=== PATIENT | female | born 1935 | race Caucasian/White ===

== ENCOUNTER 2019-05-21 09:45 | Outpatient (REF) | payer MEDICARE, SELFPAY ==
[2019-05-21 13:18] LABS: HCT 44.6 % (36.0-46.0); HGB 14.5 g/dL (12.0-15.5); Mean Corp. HGB Concentration 32.5 g/dL (32.0-36.0); Mean Corpuscular Hemoglobin 30.3 pg (27.0-33.0); Mean Corpuscular Volume 93.1 fL (80-95); Mean Platelet Volume 12.5 fL (8.0-11.0); Platelet Count 202 x1000/uL (130-400); RBC 4.79 m/cumm (4.00-5.20); RBC Distribution Width 14.1 % (11.7-14.6); White Blood Cell Count 6.19 k/cumm (4.4-10.8)
[2019-05-21 14:09] LABS: ALT 26 U/L (14-59); AST 12 U/L (15-37); Albumin 3.4 g/dL (3.4-5.0); Alkaline Phosphatase 34 U/L (46-116); Anion Gap 7.3 mmol/L (3-11); BUN 14 mg/dL (7-18); Bilirubin, Total 0.5 mg/dL (0.2-1.0); CO2 28.7 mmol/L (21.0-32.0); CREATININE 0.79 mg/dL (0.55-1.02); Calcium 8.9 mg/dL (8.5-10.1); Calculated LDL 136 mg/dL; Chloride 106 mmol/L (98-107); Cholesterol 224 mg/dL (50-200); Glucose 99 mg/dL (70-100); HDL Cholesterol 58 mg/dL (40-60); Potassium 4.3 mmol/L (3.5-5.1); Sodium 142 mmol/L (136-145); Total Protein 6.6 g/dL (6.4-8.2); Triglyceride 154 mg/dL (30-150)
== END 2019-05-21 10:05 ==
LOC: NCHCN 09:45
PROVIDERS: Visit Provider Family Medicine
DX: E78.5 Hyperlipidemia, unspecified (principal); E66.9 Obesity, unspecified
CPT/HCPCS: 80053; 80061; 85027

== ENCOUNTER 2020-04-17 09:53 | Inpatient (IN) | payer MEDICARE, SELFPAY ==
[2020-04-17] VITALS (41 sets, daily range): BP systolic 88–140; BP diastolic 34–92; PULSE 57–100; RESP 10–25; TEMP 36.2–37.1; O2SAT 91–99
--- NOTE | 2020-04-17 09:45 | RT.EKG_ITS ---
APPROVED REPORT Exam: Resting ECG Patient Location: E HR:85 bpm ECG Measurements Heart Rate 85 AXIS VT 154 P 26 QRSd 78 QRS -22 QT 351 T 0 QTc 418 Conclusion Sinus rhythm...normal P axis, V-rate 60- 99 Nonspecific T abnormalities, inferior leads...T <-0.10mV, II III aVF
--- NOTE | 2020-04-17 09:52 | ED.GENADUL_ITS ---
Discharge Plan Disposition Patient Disposition: [facility] INPATIENT Condition: Fair Discharge Details Chief Complaint: Palpitatns Clinical Impression: Palpitations, Elevated troponin Admit Date/Time: 04/17/20 14:43 Admit Provider: Yamilka Kowalski Attending Provider: Yamilka Kowalski Primary Care Provider: Pati Zamudio ED Provider: Rebecca Linares Discharge Data Discharge Date/Time-TO BE ENTERED AT DEPARTURE: 04/17/20 16:05 Medical Decision Making <REYES Moran - Last Filed: 04/18/20 06:57> Patient is a pleasant 85-year-old female presented with chief complaint of palpitations. She reports that at she began having palpitations. Denies any chest pain. States that she did have some nausea but no vomiting. States she did have one episode like this historically that 0700, resolved much quicker. C ontacted EMS, EMS noted patient to be in SVT. On her way here, patient self converted and is currently in normal sinus rhythm per EMS with a rate in the 80s. Her primary concern right now is for right lower abdominal discomfort that she reports has waxed and waned over the past several years. She denies known thyroid disease. No recent travel. Denies shortness of breath. She is currently denying any chest pain. On exam, patient is resting comfortably with stable vital signs. RRR, lungs clear. Abdominal exam reveals mild RLQ pain with no rebound/guarding or other peritoneal findings. EKG was reviewed by Dr. Faustin no acute ischemic changes noted labs are reviewed.. No leukocytosis. Stable H&H. CMP without significant abnormality. Initial troponin is less than 0.05. Will repeat this. TSH within normal limits. Urine is highly contaminated. XR reviewed by radiologist: The heart is not enlarged. The lungs are clear and well expanded. No pleural effusion seen. Mediastinal contours appear intact. IMPRESSION: Normal chest CT abdomen reviewed by radiologist: FINDINGS: CT examination of the abdomen and pelvis was performed with bolus infusion of 90 cc of Omnipaque 350. Images obtained through the lung bases are unremarkable. Note is made of coronary artery calcification. There are multiple vascular clips at the esophageal hiatus. Appearance gastroesophageal junction grossly unchanged from CT 01/14/2016. The liver and spleen are unremarkable in appearance except for tiny low-attenuation presumed cysts as noted on prior CT. A left renal cyst is noted measuring up to about 3 cm in diameter. Otherwise kidneys and adrenals are unremarkable. Gallbladder and bile ducts are CT normal. Pancreas appears normal. Abdominal aorta and major visceral branches appear intact. No significant abdominal or pelvic adenopathy. No significant bowel dilatation or other evidence of obstruction. Small fat containing umbilical and bilateral inguinal hernias noted. There is a mobile cecum which lies in the mid abdomen. No evidence of volvulus. Appendix nonvisualized, patient has reportedly had a prior appendectomy. Uterus and ovaries essentially nonvisualized. Urinary bladder grossly intact. Colonic diverticulosis without evidence of diverticulitis. IMPRESSION: No evidence of acute intra-abdominal process. Repeat EKG remains unchanged. Repeat troponin is elevated at 0.22. Patient continues to be asymptomatic is resting comfortably. Consulted with hospitalist. Feel that her bump troponin is likely demand ischemia associated with her going in SVT. Hospitalist request, will consult with cardiology as would not have capability to stress test her this weekend. Consulted with Dr. San with cardiology at [facility]. He advised that patient should be monitored x 1 day but could then be discharged with a plan to stress next week on Monday. He does not feel the patient meets criteria for transition to their facility at this point. Consulted again with hospitalist who agrees to admission for continued observation and plan for stress testing as recommended by cardiology. Discussed this plan with the patient as well as her family. She voiced understanding and is in agreement this plan. <Suresh Faustin MD - Last Filed: 04/18/20 08:39> 1040 -- Patient seen, examined, and discussed with REYES Linares. Patient here for rapid heart rate with SVT that broke spontaneously in route to [facility]. Also with abdominal pain, worse in the morning, persisted for months but worsening. Tender to palpation right mid to lower abdomen. Patient has had appendectomy in the past. -- I agree with treatment plan as discussed/documented by REYES Linares. HPI <REYES Moran - Last Filed: 04/18/20 06:57> General Mode of arrival: EMS . Date/Time Provider Initiated Documentation: 04/17/20 09:54 . Limitations to Documentation: no limitations . Information obtained by: patient, EMS and RN notes reviewed . History of Present Illness 85 year old F presents to the emergency department with the chief complaint of palpitations, described as severe and similar to prior episodes, Quality is described as other (denies CP, states she did have nausea which is resolved), and is localized to the chest. Patient reports no radiation. Patient started experiencing this hour(s) (0700) and it has been now resolved. No relieving factors improve symptom(s), No exacerbating factors reported . Patient notes nausea/vomiting (nausea, no vomiting); denies chest pain, cough, fever/chills, headaches, shortness of breath and weakness. Patient did receive the following treatments prior to arrival, none Related Data Home Medications Medication Instructions Recorded Confirmed albuterol sulfate [Proair Hfa] 2 puff INHALATION PRN PRN 11/20/14 04/17/20 fluticasone propion-salmeterol 1 puff INHALATION BID 11/20/14 04/17/20 [Advair 100-50 Diskus] Allergies Allergy/AdvReac Type Severity Reaction Status Date / Time hornet venom Allergy Severe Anaphylaxsi Unverified 04/17/20 10:01 s Sulfa (Sulfonamide Allergy Severe Swelling/Ed Unverified 04/17/20 10:01 Antibiotics) cesia codeine AdvReac Intermediate Nausea Unverified 04/17/20 10:01 meperidine HCl [From Demerol] AdvReac Intermediate Nausea Unverified 04/17/20 10:01 Review of Systems <REYES Moran - Last Filed: 04/18/20 06:57> Constitutional Constitutional: Reports as per HPI, Denies chills, Denies fever(s), Denies headache(s), Denies lethargy and Denies poor appetite Eyes Eyes: Denies change in vision ENT Ears, Nose, Mouth, and Throat: Denies dizziness and Denies headache(s) Cardiovascular Cardiovascular: Reports as per HPI, Reports chest pain (During episode of palpitations, currently resolved), Denies syncope, Denies lightheadedness, Denies radiating jaw, neck or arm pain, Reports palpitations, Denies dyspnea and Denies dyspnea on exertion Respiratory Respiratory: Reports as per HPI, Denies chest congestion, Denies cough, Denies pain on inspiration, Denies pain with cough, Denies dyspnea, Denies dyspnea on exertion and Denies wheezing Gastrointestinal Gastrointestinal: Reports as per HPI, Denies abdominal pain, Denies diarrhea, Reports nausea and Denies vomiting Musculoskeletal Musculoskeletal: Reports as per HPI and Denies back pain Integumentary/Breasts Skin/Breast: Reports as per HPI and Denies rash Neurologic Neurologic: Reports as per HPI, Denies dizziness, Denies syncope and Denies headache(s) Endocrine Endocrine: Reports palpitations Allergic/Immunologic Allergic/Immunologic: Denies wheezing PFSH <REYES Moran - Last Filed: 04/18/20 06:57> Medical History (Updated 04/18/20 @ 06:56 by REYES Moran) Asthma (Chronic) Bee sting allergy (Acute) Environmental allergies (Acute) GERD (gastroesophageal reflux disease) (Chronic) H/O Radha-Escalera syndrome (Acute) Hiatal hernia (Chronic) Hyperlipidemia (Acute) Osteoporosis (Chronic) Palpitations (Acute) Sensorineural hearing loss of both ears (Acute) Surgical History (Updated 04/17/20 @ 17:30 by Yamilka Kowalski MD) H/O esophagogastroduodenoscopy (Chronic) History of appendectomy (Chronic) History of repair of hiatal hernia (Acute) S/P colonoscopy (Acute) S/P tonsillectomy and adenoidectomy (Acute) S/P total abdominal hysterectomy and bilateral salpingo-oophorectomy (Acute) Family History (Updated 04/17/20 @ 17:32 by Yamilka Kowalski MD) Brother Heart disease Diabetes Self No problems noted. Sister Stroke Paternal Aunt No problems noted. Paternal Grandfather Cancer stomach cancer Maternal Grandfather Cancer throat cancer (smoker) Social History Smoking/Tobacco Use Status: Never Alcohol Intake: never Drug use: Never Substance use type: does not use Do you feel safe at home: Yes Do you feel safe in your relationship?: Yes Exam <REYES Moran - Last Filed: 04/18/20 06:57> Const General: cooperative, healthy appearing, comfortable, no acute distress and well developed Nutritional Appearance: average body habitus and well nourished Orientation: alert, awake and oriented x3 HENMT Head: normal to inspection Ears: hearing grossly normal bilaterally Mouth: moist mucous membranes Chest Chest: normal inspection of the chest, normal palpation of entire chest wall and no crepitus Resp Effort & Inspection: normal respiratory effort, able to speak in complete sentences and no respiratory distress Auscultation: clear to auscultation bilaterally, no rales, no rhonchi and no wheezes Cardio Rate: regular rate Rhythm: regular rhythm Heart Sounds: S1 normal and S2 normal GI Inspection: normal to inspection, no edema and non-distended Palpation: soft, no hepatosplenomegaly, not firm, no guarding, not rigid and nontender Auscultation: normal bowel sounds Back/Spine/Pelvis Back: no CVA tenderness Thoracic/Lumbar Spine: thoracic and lumbar spine normal to inspection Skin General skin exam: no rashes or lesions noted Trauma: no lacerations or abrasions Neuro General: patient alert, patient awake and patient oriented x3 Cognition: normal cognition Speech: speech normal Gait: normal gait Extrem General: normal to inspection, capillary refill normal, no pedal edema, no calf tenderness and normal gait Psych Appearance: grossly normal and well kempt Mental Status: mental status grossly normal Speech and Movement: speech and movement normal
[2020-04-17 10:17] LABS: Abs Immature Grans 0.02 10^3/uL (0.0-0.06); Absolute Basophil Count 0.04 10^3/uL (0.0-0.2); Absolute Lymphocyte Count 1.85 10^3/uL (1.2-3.4); Absolute Monocyte Count 0.35 10^3/uL (0.1-0.8); Absolute Neutrophil Count 3.04 10^3/uL (1.2-6.7); Basophils % 0.7; Eosinophils % 1.9; HCT 47.9 % (36.0-46.0); HGB 15.6 g/dL (11.2-15.7); Immature Grans % 0.4; Lymphocytes % 34.3; MCH 30.4 pg (27.0-33.0); MCHC 32.6 % (32.0-36.0); MCV 93.4 fL (80-95); MPV 11.5 fL (8.0-11.0); Monocytes % 6.5; Neutrophils % 56.2; Nucleated RBC 0 %; Platelet Count 192 10^3/uL (130-400); RBC 5.13 10^6/uL (3.93-5.22)
[2020-04-17 10:30] LABS: PTT Activated 21.8 sec (21.0-31.4); Prothrombin Time 9.9 sec (9.3-11.0)
--- NOTE | 2020-04-17 10:30 | DI.CT_ITS ---
EXAM: CT ABDOMEN PELVIS W CLINICAL HISTORY: RLQ pain, acute on chronic TECHNIQUE: COMPARISON: CT ABD PELVIS WITH CONTRAST from 01/14/2016 FINDINGS: CT examination of the abdomen and pelvis was performed with bolus infusion of 90 cc of Omnipaque 350. Images obtained through the lung bases are unremarkable. Note is made of coronary artery calcifica tion. There are multiple vascular clips at the esophageal hiatus. Appearance gastroesophageal junction pam ssly unchanged from CT 01/14/2016. The liver and spleen are unremarkable in appearance except for ti ny low-attenuation presumed cysts as noted on prior CT. A left renal cyst is noted measuring up to about 3 cm in diameter. Otherwise kidneys and adrenals ar e unremarkable. Gallbladder and bile ducts are CT normal. Pancreas appears normal. Abdominal aorta and major visceral branches appear intact. No significant abdominal or pelvic adenopathy. No significant bowel dilatation or other evidence of obstruction. Small fat containing umbilical and bilateral inguinal hernias noted. There is a mobile cecum which lies in the mid abdomen. No evidence of volvulus. Appendix nonvisuali zed, patient has reportedly had a prior appendectomy. Uterus and ovaries essentially nonvisualized. Urinary bladder grossly intact. Colonic diverticulosi s without evidence of diverticulitis. IMPRESSION: No evidence of acute intra-abdominal process. RADIATION DOSE DELIVERED: 850.25mGy.cm Total DLP
[2020-04-17 11:01] LABS: ALT 25 U/L (14-59); AST 17 U/L (15-37); Albumin 3.5 g/dL (3.4-5.0); Alkaline Phosphatase 30 U/L (46-116); BUN 14 mg/dL (7-18); Bilirubin, Total 0.5 mg/dL (0.2-1.0); CREATININE 0.94 mg/dL (0.55-1.02); Chloride 105 mmol/L (98-107); Estimated GFR 56.73 (mL/min/1.73m2); Glucose 112 mg/dL (74-106); Magnesium 2.1 mg/dL (1.8-2.4); Potassium 3.8 mmol/L (3.5-5.1); Sodium 141 mmol/L (136-145); TSH (W/Ref FT4) 1.81 uIU/mL (0.36-3.74); Total Protein 6.9 g/dL (6.4-8.2); Troponin I < 0.05 ng/mL (<0.06)
[2020-04-17] MEDS: Lactated Ringers 1,000 ML 500 ML IV (11:32)
--- NOTE | 2020-04-17 12:16 | DI.RAD_ITS ---
EXAM: XR CHEST 2V PA LATERAL CLINICAL HISTORY: SVT TECHNIQUE: 2D digital imaging was performed. COMPARISON: CR CHEST 2 VIEWS PA,LAT from 11/20/2014 FINDINGS: The heart is not enlarged. The lungs are clear and well expanded. No pleural effusion seen. Mediastin al contours appear intact. IMPRESSION: Normal chest RADIATION DOSE DELIVERED: Total DLP
[2020-04-17 12:30] LABS: Bilirubin Negative (Negative); Blood Trace-intact (Negative); Clarity Clear (Clear); Glucose Negative (Negative); Ketones Negative (Negative); Leukocyte Esterase Trace (Negative); Nitrite Negative (Negative); Specific Gravity 1.025 (1.005-1.025); Urobilinogen 0.2 EU/dL (Up TO 0.2)
[2020-04-17 12:42] LABS: Epithelial Cells Many HPF (Negative)
[2020-04-17 12:43] LABS: Crystals Moderate Amorphous HPF (Negative)
[2020-04-17 12:44] LABS: C & S Indicated? No/Sq. Contamination; Mucus Negative (Negative)
--- NOTE | 2020-04-17 13:15 | RT.EKG_ITS ---
APPROVED REPORT Exam: Resting ECG Patient Location: E HR:67 bpm ECG Measurements Heart Rate 67 AXIS DC 150 P 36 QRSd 87 QRS 7 QT 405 T 2 QTc 429 Conclusion Sinus rhythm...normal P axis, V-rate 60- 99 Ventricular premature complex...V complex w/ short R-R interval
[2020-04-17 13:46] LABS: Troponin I 0.22 ng/mL (<0.06)
--- NOTE | 2020-04-17 14:13 | NUR.NOTE ---
Nursing Note: BP of 80 systolic in flow sheet was charted incorrectly. Current BP 120/69
--- NOTE | 2020-04-17 14:49 | NUR.NOTE ---
Nursing Note: Per MD Kowalski request the Pt was asked about her code status. Pt informed nursing staff that she would like to be listed as a Full Code. Md Kowalski made aware.
[2020-04-17 15:34] LABS: Lactate 1.5 mmol/L (0.6-1.4)
[2020-04-17 15:59] LABS: NT-proBNP 1537 pg/mL (<300)
[2020-04-17 16:05] LABS: D-Dimer 552 ng/mlFEU (<500)
--- NOTE | 2020-04-17 17:18 | W.PM.HP.N ---
Date of service: 04/17/20 Time of Service: 17:18 Assessment and Plan Assessment and plan (1) SVT (supraventricular tachycardia): Status: Resolved Assessment and plan: I suspect that the prior episodes of palpitations were due to SVT also. A possible trigger for this could be the patient's advair. Will introduce a low dose of cardizem and monitor on telemetry. Unfortunately, no echo is available over the weekend. Continue to monitor troponins. (2) Elevated troponin: Status: Acute Assessment and plan: In setting of SVT, could be indicative of demand ischemia, but underlying CAD cannot be excluded. We have a record of the patient having had a negative MPI in 2009. Monitor on telemetry, start aspirin, statin (does have a history of hyperlipidemia in old records), check FLP/A1C. Continue to trend troponins. [facility] by ED - at that time, it was not felt that the patient would require transfer for a stress test over the weekend, but that she would need one early next week. (3) Asthma: Status: Chronic Assessment and plan: Not in acute exacerbation. Beta agonists could be contributing to SVT. (4) GERD (gastroesophageal reflux disease): Status: Chronic Assessment and plan: Start PPI. (5) DVT prophylaxis: Status: Acute Assessment and plan: Lovenox SC (6) Discharge planning issues: Status: Acute Assessment and plan: Full code, but the patient is reconsidering her code status. She will think on it tonight. History of Present Illness History of Present Illness Chief Complaint: palpitations Narrative: Ms Hall is an 85 year old female with PMHx of palpitations in the past (not investigated), as well as h/o asthma on advair and albuterol, hiatal hernia, and hearing loss, who was brought to [facility] ED by ambulance after having an episode of dizziness, palpitations, left sided chest pain, shortness of breath, belching, nausea (but no vomiting) and desire to defecate when she first got up to use the restroom today. Unlike her prior episodes of palpitations, this episode did not subside on its own. The patient states she has never had her palpitations investigated before. She states that, other than not being able to sleep last night, there has not been anything out of the ordinary. She denies chest pain at this time. She is not short of breath at this time. She was found to be in SVT by the EMS, but converted spontaneously into NSR in which she has remained. Her initial troponin was negative; the second one went up to 0.22. Serial EKGs do not show ischemia. The hospitalist service was asked to admit the patient for further care. Review of Systems All systems reviewed & are unremarkable except as noted in HPI and below PFSH Medical History (Updated 04/17/20 @ 17:37 by Yamilka Kowalski MD) Asthma (Chronic) Bee sting allergy (Acute) Environmental allergies (Acute) GERD (gastroesophageal reflux disease) (Chronic) H/O Radha-Escalera syndrome (Acute) Hiatal hernia (Chronic) Hyperlipidemia (Acute) Osteoporosis (Chronic) Palpitations (Acute) Sensorineural hearing loss of both ears (Acute) Surgical History (Updated 04/17/20 @ 17:30 by Yamilka Kowalski MD) H/O esophagogastroduodenoscopy (Chronic) History of appendectomy (Chronic) History of repair of hiatal hernia (Acute) S/P colonoscopy (Acute) S/P tonsillectomy and adenoidectomy (Acute) S/P total abdominal hysterectomy and bilateral salpingo-oophorectomy (Acute) Family History (Updated 04/17/20 @ 17:32 by Yamilka Kowalski MD) Brother Heart disease Diabetes Self No problems noted. Sister Stroke Paternal Aunt No problems noted. Paternal Grandfather Cancer stomach cancer Maternal Grandfather Cancer throat cancer (smoker) Social History Smoking/Tobacco Use Status: Never Alcohol Intake: never Drug use: Never Substance use type: does not use Do you feel safe at home: Yes Do you feel safe in your relationship?: Yes Meds Home Medications and Allergies Home Medications Medication Instructions Recorded Confirmed Type albuterol sulfate [Proair Hfa] 2 puff INHALATION PRN PRN 11/20/14 04/17/20 History fluticasone propion-salmeterol 1 puff INHALATION BID 11/20/14 04/17/20 History [Advair 100-50 Diskus] Allergies Allergy/AdvReac Type Severity Reaction Status Date / Time hornet venom Allergy Severe Anaphylaxsi Unverified 04/17/20 10:01 s Sulfa (Sulfonamide Allergy Severe Swelling/Ed Unverified 04/17/20 10:01 Antibiotics) cesia codeine AdvReac Intermediate Nausea Unverified 04/17/20 10:01 meperidine HCl [From Demerol] AdvReac Intermediate Nausea Unverified 04/17/20 10:01 Exam Narrative Exam Narrative: General: Very pleasant, quite talkative elderly female, T[place], does not appear in acute distress Neurological: A&Ox3, [place], no focal deficits Psychiatric: Appropriate speech pattern/content; slightly anxious affect Skin: Visible skin intact HEENT: Atraumatic, normocephalic, EOMI, MMM, clear oropharynx, no submandibular or cervical lymphadenopathy, no goiter or JVD Cardiovascular: RRR, no m/r/g Lungs: CTAB Gastrointestinal: soft, mildly distended, nontender Genitourinary: deferred Extremities: trace edema BLEs, symmetric, no c/c, +1 bilateral pedal pulses Results Imaging Additional studies: CXR: Normal chest CT abdomen/pelvis w/ contrast: No evidence of acute intra-abdominal process. EKG #1: NSR, HR 85, no acute ischemia EKG #2: NSR, HR 67, no acute ischemia Labs Result diagrams: 04/17/20 10:07 04/17/20 10:07 Labs: Laboratory Results - last 24 hr 04/17/20 04/17/20 04/17/20 10:07 10:07 10:07 WBC 5.40 RBC 5.13 Hgb 15.6 Hct 47.9 H MCV 93.4 MCH 30.4 MCHC 32.6 RDW 13.0 Plt Count 192 MPV 11.5 H Immature Gran % 0.4 Neutrophils % 56.2 Lymphocytes % 34.3 Monocytes % 6.5 Eosinophils % 1.9 Basophils % 0.7 Nucleated RBC % 0 Absolute Neutrophils 3.04 Absolute Lymphocytes 1.85 Absolute Monocytes 0.35 Absolute Eosinophils 0.10 Absolute Basophils 0.04 PT 9.9 INR 1.0 APTT 21.8 D-Dimer VBG Lactate Sodium 141 Potassium 3.8 Chloride 105 Carbon Dioxide 25.0 Anion Gap 11.0 BUN 14 Creatinine 0.94 Estimated GFR/1.73 m2 56.73 Glucose 112 H Calcium 9.0 Magnesium 2.1 Total Bilirubin 0.5 AST 17 ALT 25 Alkaline Phosphatase 30 L Troponin I < 0.05 NT-Pro-B Natriuret Pep Total Protein 6.9 Albumin 3.5 TSH 1.81 Urine Color Urine Clarity Urine pH Ur Specific [place] Urine Protein Urine Ketones Urine Blood Urine Nitrite Urine Bilirubin Urine Urobilinogen Ur Leukocyte Esterase Urine RBC Urine WBC Ur Epithelial Cells Urine Crystals Urine Bacteria Urine Casts Urine Mucus Ur Culture Indicated? Urine Glucose 04/17/20 04/17/20 04/17/20 12:15 13:00 15:25 WBC RBC Hgb Hct MCV MCH MCHC RDW Plt Count MPV Immature Gran % Neutrophils % Lymphocytes % Monocytes % Eosinophils % Basophils % Nucleated RBC % Absolute Neutrophils Absolute Lymphocytes Absolute Monocytes Absolute Eosinophils Absolute Basophils PT INR APTT D-Dimer 552 H VBG Lactate Sodium Potassium Chloride Carbon Dioxide Anion Gap BUN Creatinine Estimated GFR/1.73 m2 Glucose Calcium Magnesium Total Bilirubin AST ALT Alkaline Phosphatase Troponin I 0.22 H* NT-Pro-B Natriuret Pep Total Protein Albumin TSH Urine Color Yellow Urine Clarity Clear Urine pH 7.0 Ur Specific [place] 1.025 Urine Protein 30 H Urine Ketones Negative Urine Blood Trace-intact H Urine Nitrite Negative Urine Bilirubin Negative Urine Urobilinogen 0.2 Ur Leukocyte Esterase Trace H Urine RBC 5-10 H Urine WBC 10-20 H Ur Epithelial Cells Many Urine Crystals Moderate amorphous Urine Bacteria Urine Casts Comment Urine Mucus Negative Ur Culture Indicated? No/sq. contamination Urine Glucose Negative 04/17/20 04/17/20 15:25 15:25 WBC RBC Hgb Hct MCV MCH MCHC RDW Plt Count MPV Immature Gran % Neutrophils % Lymphocytes % Monocytes % Eosinophils % Basophils % Nucleated RBC % Absolute Neutrophils Absolute Lymphocytes Absolute Monocytes Absolute Eosinophils Absolute Basophils PT INR APTT D-Dimer VBG Lactate 1.5 H Sodium Potassium Chloride Carbon Dioxide Anion Gap BUN Creatinine Estimated GFR/1.73 m2 Glucose Calcium Magnesium Total Bilirubin AST ALT Alkaline Phosphatase Troponin I NT-Pro-B Natriuret Pep 1537 H Total Protein Albumin TSH Urine Color Urine Clarity Urine pH Ur Specific [place] Urine Protein Urine Ketones Urine Blood Urine Nitrite Urine Bilirubin Urine Urobilinogen Ur Leukocyte Esterase Urine RBC Urine WBC Ur Epithelial Cells Urine Crystals Urine Bacteria Urine Casts Urine Mucus Ur Culture Indicated? Urine Glucose Last Vital Signs Temp 37.1 C 04/17/20 16:20 Pulse 71 04/17/20 16:20 Resp 18 04/17/20 16:20 BP 133/80 04/17/20 16:20 Pulse Ox 98 08/28/20 16:20 COVID-19 Screening Have you,or household,traveled outside [place] in last 14 days?: No Had IN PERSON contact w/suspected or confirmed C-19 person: No
[2020-04-17] MEDS: Normal Saline 1,000 ML 50 ML IV (17:31)
[2020-04-17] MEDS: Mylanta Suspension 30 ML CUP PO (17:32)
[2020-04-17] MEDS: Enoxaparin 40 MG/0.4 ML SYR SC (17:33)
[2020-04-17] MEDS: Aspirin E.C. 325 MG TABEC PO (17:33)
[2020-04-17] MEDS: Normal Saline Flush 10 ML SYR IVP (17:37)
[2020-04-17] MEDS: dilTIAZem 30 MG TAB PO (20:11)
[2020-04-17] MEDS: Pravastatin 40 MG TAB PO (20:11)
[2020-04-17] MEDS: Budesonide/Formoterol 80/4.5 10.2 GM 120 PUFF INH IH (20:12)
[2020-04-17 23:07] LABS: Troponin I 0.33 ng/mL (<0.06)
[2020-04-18 00:05] VITALS: BP 141/61; PULSE 52; RESP 18; TEMP 36.7; O2SAT 96
[2020-04-18] MEDS: Mylanta Suspension 30 ML CUP PO ×2 (03:30→10:30)
[2020-04-18] MEDS: Docusate Sodium 100 MG CAP PO ×2 (03:30→20:58)
[2020-04-18 04:20] VITALS: BP 123/74; PULSE 71; RESP 18; TEMP 36.6; O2SAT 96
[2020-04-18 07:30] VITALS: BP 135/81; PULSE 64; RESP 18; TEMP 37.5; O2SAT 96
[2020-04-18 07:41] LABS: COVID-19 RT-PCR UVMMC Result Negative (Negative)
[2020-04-18 07:49] LABS: Anion Gap 4.6 mmol/L (3-11); BUN 11 mg/dL (7-18); CO2 27.4 mmol/L (21.0-32.0); CREATININE 0.72 mg/dL (0.55-1.02); Calcium 8.4 mg/dL (8.5-10.1); Calculated LDL 114 mg/dL (<100); Chloride 111 mmol/L (98-107); Cholesterol 186 mg/dL (<200); Glucose 107 mg/dL (74-106); HDL Cholesterol 46 mg/dL (40-60); Magnesium 2.1 mg/dL (1.8-2.4); Sodium 143 mmol/L (136-145); Triglyceride 131 mg/dL (<150)
[2020-04-18 07:52] LABS: Troponin I 0.21 ng/mL (<0.06)
[2020-04-18] MEDS: Budesonide/Formoterol 80/4.5 10.2 GM 120 PUFF INH IH ×2 (07:55→20:56)
--- NOTE | 2020-04-18 08:06 | INITIAL_ITS ---
- If Service Date Differs Date of service: 04/18/20 Time of Service: 08:06 Care Management Initial Assess REASON FOR HOSPITALIZATION:: Paroxysmal SVT, elevated troponin. PAST MEDICAL HISTORY/PAST SURGICAL HISTORY:: Medical History: Asthma, Bee sting allergy, Environmental allergies, GERD (gastroesophageal reflux disease), H/O Radha-Escalera syndrome, Hiatal hernia, Hyperlipidemia, Osteoporosis, Palpitations, and Sensorineural hearing loss of both ears. Surgical History: H/O esophagogastroduodenoscopy, History of appendectomy, History of repair of hiatal hernia, S/P colonoscopy, S/P tonsillectomy and adenoidectomy, and S/P total abdominal hysterectomy and bilateral salpingo-oophorectomy. PREVIOUS FUNCTIONAL STATUS/SOCIAL/FAMILY SUPPORTS:: Caron is a pleasant 85 year old female who lives alone with her dog Jayne in [place]. She remains active by walking her dog three times a day, mowing her lawn with the lawn tractor, reading, and watching television. Caron is the oldest of nine children, all of whom live locally with the exception of one sister who lives in [place]. Caron names her siblings as her support system and says she has always had a close relationship with each of them. Caron drives, cooks, cleans, and is independent with her ADLs at baseline. CURRENT FUNCTIONAL STATUS:: Caron is lying in bed watching television when CM comes to meet with her. She easily engages in conversation and talks about some of the different places she has visited over the years. She states she is now more of a homebody and doesn't go far from home due to coronavirus concerns. CM will continue to follow. ADVANCE DIRECTIVES:: On file; Dina Dupont (sister) is healthcare agent. Has patient been provided with info about the portal/API?: Yes Did the patient sign up for the portal?: No CODE STATUS:: Full Code INSURANCE COVERAGE / FINANCIAL ISSUES:: AARP and Medicare. CURRENT HOME/COMMUNITY SERVICES/EQUIPMENT:: Caron is independent at baseline. She does not currently have any home/community services or equipment. PRIMARY CARE PHYSICIAN:: Uvrashi Browne MD POTENTIAL DISCHARGE NEEDS:: Follow up appointment with PCP and building maintenance engineer. PATIENT/FAMILY EDUCATION NEEDS:: Discharge instructions, limitations and follow up plan of care, including Ask Me Three and self management. ANTICIPATED BARRIERS TO DISCHARGE:: No anticipated barriers at this time. TRANSPORTATION:: Via private vehicle with family. PLAN:: Anticipate Caron will be discharged home with no services when medically cleared by provider. She will follow up with her PCP, building maintenance engineer and plan of care as directed. She will be transported home by family via private vehicle when ready. CM will continue to follow.
[2020-04-18] MEDS: Pantoprazole 20 MG TABCR PO (08:55)
[2020-04-18] MEDS: Aspirin E.C. 81 MG TABEC PO (08:55)
--- NOTE | 2020-04-18 09:30 | RT.EKG_ITS ---
APPROVED REPORT Exam: Resting ECG Patient Location: I HR:74 bpm ECG Measurements Heart Rate 74 AXIS IN 158 P 26 QRSd 87 QRS -4 QT 378 T -25 QTc 418 Conclusion Sinus rhythm...normal P axis, V-rate 60- 99 Nonspecific T abnormalities, inferior leads...T <-0.10mV, II III aVF
[2020-04-18 10:06] LABS: Hemoglobin A1C 5.9 % (<5.7)
[2020-04-18] MEDS: dilTIAZem 30 MG TAB PO ×2 (10:31→20:58)
--- NOTE | 2020-04-18 11:16 | PHA.REVIEW ---
Pharmacy Admission Review - Admission Clinical Review (Last Updated 04/17/20 @ 17:30 by Yamilka Kowalski MD) Discharge planning issues (Acute) DVT prophylaxis (Acute) Elevated troponin (Acute) Palpitations (Acute) hornet venom Allergy (Severe, Unverified 04/17/20 10:01) Anaphylaxsis Sulfa (Sulfonamide Antibiotics) Allergy (Severe, Unverified 04/17/20 10:01) Swelling/Edema codeine Adverse Reaction (Intermediate, Unverified 04/17/20 10:01) Nausea meperidine HCl [From Demerol] Adverse Reaction (Intermediate, Unverified 04/17/20 10:01) Nausea Height 4 ft 11.06 in Weight 63.503 kg - Renal Dosing Renal Dosing: BUN 11 mg/dL (7-18) 04/18/20 06:45 Creatinine 0.72 mg/dL (0.55-1.02) 04/18/20 06:45 Medications needing adjustments: Reviewed (crcl ~38ml/min) - Anticoagulation Anticoagulation: Hgb 15.6 g/dL (11.2-15.7) 04/17/20 10:07 Hct 47.9 % (36.0-46.0) H 04/17/20 10:07 Plt Count 192 10^3/uL (130-400) 04/17/20 10:07 INR 1.0 (0.9-1.1) 04/17/20 10:07 Creatinine 0.72 mg/dL (0.55-1.02) 04/18/20 06:45 DVT Prohphylaxis: Reviewed Medications: Enoxaparin Therapeutic Anticoagulation: N/A - Relevant Labs Sodium 143 mmol/L (136-145) 04/18/20 06:45 Potassium 4.0 mmol/L (3.5-5.1) 04/18/20 06:45 Chloride 111 mmol/L (98-107) H 04/18/20 06:45 Magnesium 2.1 mg/dL (1.8-2.4) 04/18/20 06:45 - DM Control DM Control: Glucose 107 mg/dL (74-106) H 04/18/20 06:45 Hemoglobin A1c 5.9 % (<5.7) H 04/18/20 06:45 - Heart Failure/OH Heart Failure/OH: Troponin I 0.21 ng/mL (<0.06) H* 04/18/20 06:45 NT-Pro-B Natriuret Pep 1537 pg/mL (<300) H 04/17/20 15:25 - BP Control BP Control: Blood Pressure 135/81 Blood Pressure 123/74 Blood Pressure 141/61 - Qtc Review If Elevated: N/A - IV to PO Switch IV Medications: Reviewed (IVF po meds) - Home Meds Home Med List reviewed: Intervened (symbicort sub for advair) - Current meds Current Medication Order Review: Reviewed - Comments Comments/Follow Ups: MPI scheduled for Monday. will stay inpt until then. diltiazem po started
[2020-04-18] MEDS: Normal Saline 1,000 ML 50 ML IV (13:34)
--- NOTE | 2020-04-18 15:42 | PGE_ITS ---
Date of Service Date of service: 04/18/20 Time of Service: 15:42 Assessment and Plan Assessment and plan (1) SVT (supraventricular tachycardia): Status: Resolved Assessment and plan: Resolved. Tolerating cardizem - continue cardizem 30 mg PO BID. A possible trigger for this could be the patient's advair. For echo and stress test on Monday. Continue to monitor on tele. (2) Abdominal pain: Status: Acute Assessment and plan: Obtain US RUQ given h/o reported gallbladder disease. (3) Elevated troponin: Status: Acute Assessment and plan: In setting of SVT, could be indicative of demand ischemia, but underlying CAD cannot be excluded. Troponins have trended down. For MPI on Monday. Continue asa, statin. (4) Asthma: Status: Chronic Assessment and plan: Not in acute exacerbation. Continue beta agonists for now, but reconsider therapy if SVT recurs. (5) GERD (gastroesophageal reflux disease): Status: Chronic Assessment and plan: Continue PPI. (6) DVT prophylaxis: Status: Acute Assessment and plan: Lovenox SC (7) Discharge planning issues: Status: Acute Assessment and plan: Full code, Admit to inpatient status. Subjective Subjective Interval history since last seen: Reports RUQ/R mid abdominal pain that started while she was seated in a chair today. She felt maybe it was her intestines, but states that she was told in the past that she had gallbladder problems. These pains seem to be coming and going for a long time, the patient states. Denies dizziness, chest pain, shortness of breath, nausea today. She had several BMs today after feeling like she couldn't have a BM. No SVT on telemetry overnight. Exam Narrative Exam Narrative: General: Pleasant elderly female, A&Ox3, comfortable in bed HEENT: EOMI, MMM Heart: RRR, no m/r/g Lungs: CTAB Abdomen: soft, tender in RUQ, nondistended, + BS Extremities: no e/c/c BLEs Objective Objective Clinical Data: Abnormal lab results 04/17/20 04/17/20 04/17/20 Range/Units 15:25 15:25 22:31 D-Dimer 552 H (<500) ng/mlFEU Chloride (98-107) mmol/L Glucose (74-106) mg/dL Hemoglobin A1c (<5.7) % Calcium (8.5-10.1) mg/dL Troponin I 0.33 H* (<0.06) ng/mL NT-Pro-B Natriuret Pep 1537 H (<300) pg/mL LDL Cholesterol, Calc (<100) mg/dL 04/18/20 04/18/20 Range/Units 06:45 06:45 D-Dimer (<500) ng/mlFEU Chloride 111 H (98-107) mmol/L Glucose 107 H (74-106) mg/dL Hemoglobin A1c 5.9 H (<5.7) % Calcium 8.4 L (8.5-10.1) mg/dL Troponin I 0.21 H* (<0.06) ng/mL NT-Pro-B Natriuret Pep (<300) pg/mL LDL Cholesterol, Calc 114 H (<100) mg/dL Vital Signs Temperature 37.5 C 04/18/20 07:30 Temperature Source Temporal Artery Scan 04/18/20 07:30 Pulse 64 04/18/20 07:30 Pulse Rhythm Regular 04/18/20 14:00 Pulse 76 04/17/20 15:50 Respiratory Rate 18 04/18/20 07:30 Respiratory Effort Non-Labored 04/18/20 14:00 Respiratory Depth Normal 04/18/20 14:00 Respiratory Pattern Normal 04/18/20 14:00 Blood Pressure 135/81 04/18/20 07:30 Blood Pressure Mean 67 04/17/20 15:46 Blood Pressure Position Supine 04/17/20 09:54 Pulse Oximetry 96 04/18/20 07:30 Oxygen Delivery Method Room Air 04/18/20 07:30 Oxygen Flow Rate 0 04/18/20 07:30 Pain Level 0 04/18/20 04:20 Intake & Output 04/17/20 04/18/20 04/18/20 23:59 11:59 23:59 Intake Total 1000 / 1000 Output Total 900 / 900 165 / 2049 400 / 2049 Balance -900 / -900 -1650 / -1050 600 / -1050 Weight 63.503 kg Intake: IV 1000 / 1000 Output: Urine 900 / 900 165 / 2049 400 / 2049 Other: Urine Color Yellow Yellow Yellow Urine Appearance Clear Clear Clear Urine Odor None Normal Stool Size Small Stool Characteristics Formed Voiding Methods Bedside Commode Toilet Toilet Laboratory Results WBC 5.40 10^3/uL (4.4-10.8) 04/17/20 10:07 RBC 5.13 10^6/uL (3.93-5.22) 04/17/20 10:07 Hgb 15.6 g/dL (11.2-15.7) 04/17/20 10:07 Hct 47.9 % (36.0-46.0) H 04/17/20 10:07 MCV 93.4 fL (80-95) 04/17/20 10:07 MCH 30.4 pg (27.0-33.0) 04/17/20 10:07 MCHC 32.6 % (32.0-36.0) 04/17/20 10:07 RDW 13.0 % (11.7-14.6) 04/17/20 10:07 Plt Count 192 10^3/uL (130-400) 04/17/20 10:07 MPV 11.5 fL (8.0-11.0) H 04/17/20 10:07 Immature Gran % 0.4 04/17/20 10:07 Neutrophils % 56.2 04/17/20 10:07 Lymphocytes % 34.3 04/17/20 10:07 Monocytes % 6.5 04/17/20 10:07 Eosinophils % 1.9 04/17/20 10:07 Basophils % 0.7 04/17/20 10:07 Nucleated RBC % 0 % 04/17/20 10:07 Absolute Neutrophils 3.04 10^3/uL (1.2-6.7) 04/17/20 10:07 Absolute Lymphocytes 1.85 10^3/uL (1.2-3.4) 04/17/20 10:07 Absolute Monocytes 0.35 10^3/uL (0.1-0.8) 04/17/20 10:07 Absolute Eosinophils 0.10 10^3/uL (0.0-0.7) 04/17/20 10:07 Absolute Basophils 0.04 10^3/uL (0.0-0.2) 04/17/20 10:07 PT 9.9 sec (9.3-11.0) 04/17/20 10:07 INR 1.0 (0.9-1.1) 04/17/20 10:07 APTT 21.8 sec (21.0-31.4) 04/17/20 10:07 D-Dimer 552 ng/mlFEU (<500) H 04/17/20 15:25 VBG Lactate 1.5 mmol/L (0.6-1.4) H 04/17/20 15:25 Sodium 143 mmol/L (136-145) 04/18/20 06:45 Potassium 4.0 mmol/L (3.5-5.1) 04/18/20 06:45 Chloride 111 mmol/L (98-107) H 04/18/20 06:45 Carbon Dioxide 27.4 mmol/L (21.0-32.0) 04/18/20 06:45 Anion Gap 4.6 mmol/L (3-11) 04/18/20 06:45 BUN 11 mg/dL (7-18) 04/18/20 06:45 Creatinine 0.72 mg/dL (0.55-1.02) 04/18/20 06:45 Estimated GFR/1.73 m2 >= 60.00 (mL/min/1.73m2) 04/18/20 06:45 Glucose 107 mg/dL (74-106) H 04/18/20 06:45 Hemoglobin A1c 5.9 % (<5.7) H 04/18/20 06:45 Calcium 8.4 mg/dL (8.5-10.1) L 04/18/20 06:45 Magnesium 2.1 mg/dL (1.8-2.4) 04/18/20 06:45 Total Bilirubin 0.5 mg/dL (0.2-1.0) 04/17/20 10:07 AST 17 U/L (15-37) 04/17/20 10:07 ALT 25 U/L (14-59) 04/17/20 10:07 Alkaline Phosphatase 30 U/L (46-116) L 04/17/20 10:07 Troponin I 0.21 ng/mL (<0.06) H* 04/18/20 06:45 NT-Pro-B Natriuret Pep 1537 pg/mL (<300) H 04/17/20 15:25 Total Protein 6.9 g/dL (6.4-8.2) 04/17/20 10:07 Albumin 3.5 g/dL (3.4-5.0) 04/17/20 10:07 Triglycerides 131 mg/dL (<150) 04/18/20 06:45 Total Cholesterol 186 mg/dL (<200) 04/18/20 06:45 LDL Cholesterol, Calc 114 mg/dL (<100) H 04/18/20 06:45 HDL Cholesterol 46 mg/dL (40-60) 04/18/20 06:45 TSH 1.81 uIU/mL (0.36-3.74) 04/17/20 10:07 Urine Color Yellow (Yellow) 04/17/20 12:15 Urine Clarity Clear (Clear) 04/17/20 12:15 Urine pH 7.0 (5-8) 04/17/20 12:15 Ur Specific [place] 1.025 (1.005-1.025) 04/17/20 12:15 Urine Protein 30 mg/dL (Negative) H 04/17/20 12:15 Urine Ketones Negative mg/dL (Negative) 04/17/20 12:15 Urine Blood Trace-intact (Negative) H 04/17/20 12:15 Urine Nitrite Negative (Negative) 04/17/20 12:15 Urine Bilirubin Negative (Negative) 04/17/20 12:15 Urine Urobilinogen 0.2 EU/dL (Up TO 0.2) 04/17/20 12:15 Ur Leukocyte Esterase Trace (Negative) H 04/17/20 12:15 Urine RBC 5-10 HPF (0-2) H 04/17/20 12:15 Urine WBC 10-20 HPF (0-5) H 04/17/20 12:15 Ur Epithelial Cells Many HPF (Negative) 04/17/20 12:15 Urine Crystals Moderate amorphous HPF (Negative) 04/17/20 12:15 Urine Bacteria HPF (Negative) 04/17/20 12:15 Urine Casts Comment LPF (Negative) 04/17/20 12:15 Urine Mucus Negative (Negative) 04/17/20 12:15 Ur Culture Indicated? No/sq. contamination 04/17/20 12:15 Urine Glucose Negative mg/dL (Negative) 04/17/20 12:15 COVID-19 PCR Negative (Negative) 04/17/20 16:20 Nasopharyn COVID-19 PCR Not Applicable 04/17/20 16:20 Ref Test Perform Site [facility] 04/17/20 16:20
[2020-04-18] MEDS: Enoxaparin 40 MG/0.4 ML SYR SC (15:51)
[2020-04-18 16:04] VITALS: BP 123/79; PULSE 70; RESP 18; TEMP 37.5; O2SAT 95
[2020-04-18 19:00] VITALS: BP 129/82; PULSE 74; RESP 18; TEMP 36.1; O2SAT 93
[2020-04-18] MEDS: Pravastatin 40 MG TAB PO (20:58)
[2020-04-18 23:01] VITALS: BP 119/74; PULSE 75; RESP 18; TEMP 36.1; O2SAT 94
[2020-04-19] VITALS (7 sets, daily range): BP systolic 104–155; BP diastolic 66–83; PULSE 59–75; RESP 16–18; TEMP 35.7–37.2; O2SAT 93–95
[2020-04-19] MEDS: Mylanta Suspension 30 ML CUP PO ×3 (03:44→19:31)
[2020-04-19 07:21] LABS: Anion Gap 9.5 mmol/L (3-11); BUN 12 mg/dL (7-18); CO2 25.5 mmol/L (21.0-32.0); CREATININE 0.68 mg/dL (0.55-1.02); Calcium 8.6 mg/dL (8.5-10.1); Chloride 110 mmol/L (98-107); Glucose 106 mg/dL (74-106); Magnesium 2.1 mg/dL (1.8-2.4); Sodium 145 mmol/L (136-145)
[2020-04-19 07:53] LABS: ALT 21 U/L (14-59); AST 14 U/L (15-37); Albumin 2.9 g/dL (3.4-5.0); Alkaline Phosphatase 29 U/L (46-116); Bilirubin, Direct 0.09 mg/dL (0.00-0.20); Bilirubin, Total 0.4 mg/dL (0.2-1.0); Total Protein 5.9 g/dL (6.4-8.2)
--- NOTE | 2020-04-19 08:00 | RT.EKG_ITS ---
APPROVED REPORT Exam: Resting ECG Patient Location: I HR:68 bpm ECG Measurements Heart Rate 68 AXIS VT 171 P 43 QRSd 88 QRS -25 QT 434 T -47 QTc 462 Conclusion Sinus rhythm...normal P axis, V-rate 60- 99
[2020-04-19] MEDS: Budesonide/Formoterol 80/4.5 10.2 GM 120 PUFF INH IH ×2 (08:05→19:33)
[2020-04-19] MEDS: dilTIAZem 30 MG TAB PO ×2 (08:10→19:32)
[2020-04-19] MEDS: Aspirin E.C. 81 MG TABEC PO (08:10)
[2020-04-19] MEDS: Docusate Sodium 100 MG CAP PO ×2 (08:10→19:32)
[2020-04-19] MEDS: Pantoprazole 20 MG TABCR PO (08:10)
--- NOTE | 2020-04-19 08:42 | PGE_ITS ---
Date of Service Date of service: 04/19/20 Time of Service: 08:43 Assessment and Plan Assessment and plan (1) SVT (supraventricular tachycardia): Start date: 04/19/20 Start time: 08:46 Status: Resolved Assessment and plan: Resolved. Tolerating cardizem - continue cardizem 30 mg PO BID. A possible trigger for this could be the patient's advair. For echo and stress test on Monday. Continue to monitor on tele. (2) Abdominal pain: Start date: 04/19/20 Start time: 08:46 Status: Acute Assessment and plan: Obtain US RUQ given h/o reported gallbladder disease. (3) Elevated troponin: Start date: 04/19/20 Start time: 08:46 Status: Acute Assessment and plan: In setting of SVT, could be indicative of demand i schemia, but underlying CAD cannot be excluded. Troponins have trended down. For MPI on Monday. Continue asa, statin. (4) Asthma: Start date: 04/19/20 Start time: 08:47 Status: Chronic Assessment and plan: Not in acute exacerbation. Continue beta agonists for now, but reconsider therapy if SVT recurs. (5) GERD (gastroesophageal reflux disease): Start date: 04/19/20 Start time: 08:47 Status: Chronic Assessment and plan: Continue PPI. Mid epigastric pain, radiating to midsternal to shoulder. Likely gas, given mylanta with relief will add carafate. U/S to r/o gallbladder disease for Monday (6) DVT prophylaxis: Start date: 04/19/20 Start time: 08:49 Status: Acute Assessment and plan: Lovenox SC (7) Discharge planning issues: Start date: 04/19/20 Start time: 08:49 Status: Acute Assessment and plan: Full code, Admit to inpatient status. Above case discussed with Dr. Kowalski who is in agreement. Subjective Subjective Patient reports: other Interval history since last seen: Ms. Hall is c/o midepigastric to midsternal CP, that radiates to shoulder. Relieved with mylanta and belching. EKG SR with no ectopy or ST depression. She denies SOB, likely this is gas. U/S will be obtained to r/o gallbladder disease. Sitting up in bed at this time with no pain, denies N/V, will add carafate to regimen Exam Narrative Exam Narrative: General: Pleasant elderly female, A&Ox3, sitting up in bed HEENT: EOMI, MMM Heart: RRR, no m/r/g Lungs: CTAB Abdomen: soft, tender in RUQ, nondistended, + BS Extremities: no e/c/c BLEs Objective Objective Clinical Data: Abnormal lab results 04/18/20 04/19/20 04/19/20 Range/Units 06:45 06:30 06:30 Chloride 110 H (98-107) mmol/L Hemoglobin A1c 5.9 H (<5.7) % AST 14 L (15-37) U/L Alkaline Phosphatase 29 L (46-116) U/L Total Protein 5.9 L (6.4-8.2) g/dL Albumin 2.9 L (3.4-5.0) g/dL Vital Signs Temperature 36.9 C 04/19/20 08:07 Temperature Source Tympanic 04/19/20 08:07 Pulse 63 04/19/20 08:07 Pulse Rhythm Regular 04/19/20 02:35 Pulse 76 04/17/20 15:50 Respiratory Rate 17 04/19/20 08:07 Respiratory Effort Non-Labored 04/19/20 02:35 Respiratory Depth Normal 04/19/20 02:35 Respiratory Pattern Normal 04/19/20 02:35 Blood Pressure 155/79 H 04/19/20 08:07 Blood Pressure Mean 67 04/17/20 15:46 Blood Pressure Position Supine 04/17/20 09:54 Pulse Oximetry 95 04/19/20 08:07 Oxygen Delivery Method Room Air 04/19/20 08:07 Oxygen Flow Rate 0 04/19/20 08:07 Pain Level 5 04/19/20 08:09 Intake & Output 04/18/20 04/18/20 04/19/20 11:59 23:59 11:59 Intake Total 1999 Output Total 1650 / 3650 1999 1700 / 1700 Balance -1650 / -1650 0 / -1650 -1700 / -1700 Intake: IV 1999 Output: Urine 165 / 3650 1999 1700 / 1700 Other: Urine Color Yellow Yellow Pale Yellow Urine Appearance Clear Clear Clear Urine Odor Normal Normal Normal Stool Size Small Moderate Stool Characteristics Formed Soft Brown Voiding Methods Toilet Toilet Bedside Commode Laboratory Results WBC 5.40 10^3/uL (4.4-10.8) 04/17/20 10:07 RBC 5.13 10^6/uL (3.93-5.22) 04/17/20 10:07 Hgb 15.6 g/dL (11.2-15.7) 04/17/20 10:07 Hct 47.9 % (36.0-46.0) H 04/17/20 10:07 MCV 93.4 fL (80-95) 04/17/20 10:07 MCH 30.4 pg (27.0-33.0) 04/17/20 10:07 MCHC 32.6 % (32.0-36.0) 04/17/20 10:07 RDW 13.0 % (11.7-14.6) 04/17/20 10:07 Plt Count 192 10^3/uL (130-400) 04/17/20 10:07 MPV 11.5 fL (8.0-11.0) H 04/17/20 10:07 Immature Gran % 0.4 04/17/20 10:07 Neutrophils % 56.2 04/17/20 10:07 Lymphocytes % 34.3 04/17/20 10:07 Monocytes % 6.5 04/17/20 10:07 Eosinophils % 1.9 04/17/20 10:07 Basophils % 0.7 04/17/20 10:07 Nucleated RBC % 0 % 04/17/20 10:07 Absolute Neutrophils 3.04 10^3/uL (1.2-6.7) 04/17/20 10:07 Absolute Lymphocytes 1.85 10^3/uL (1.2-3.4) 04/17/20 10:07 Absolute Monocytes 0.35 10^3/uL (0.1-0.8) 04/17/20 10:07 Absolute Eosinophils 0.10 10^3/uL (0.0-0.7) 04/17/20 10:07 Absolute Basophils 0.04 10^3/uL (0.0-0.2) 04/17/20 10:07 PT 9.9 sec (9.3-11.0) 04/17/20 10:07 INR 1.0 (0.9-1.1) 04/17/20 10:07 APTT 21.8 sec (21.0-31.4) 04/17/20 10:07 D-Dimer 552 ng/mlFEU (<500) H 04/17/20 15:25 VBG Lactate 1.5 mmol/L (0.6-1.4) H 04/17/20 15:25 Sodium 145 mmol/L (136-145) 04/19/20 06:30 Potassium 4.0 mmol/L (3.5-5.1) 04/19/20 06:30 Chloride 110 mmol/L (98-107) H 04/19/20 06:30 Carbon Dioxide 25.5 mmol/L (21.0-32.0) 04/19/20 06:30 Anion Gap 9.5 mmol/L (3-11) 04/19/20 06:30 BUN 12 mg/dL (7-18) 04/19/20 06:30 Creatinine 0.68 mg/dL (0.55-1.02) 04/19/20 06:30 Estimated GFR/1.73 m2 >= 60.00 (mL/min/1.73m2) 04/19/20 06:30 Glucose 106 mg/dL (74-106) 04/19/20 06:30 Hemoglobin A1c 5.9 % (<5.7) H 04/18/20 06:45 Calcium 8.6 mg/dL (8.5-10.1) 04/19/20 06:30 Magnesium 2.1 mg/dL (1.8-2.4) 04/19/20 06:30 Total Bilirubin 0.4 mg/dL (0.2-1.0) 04/19/20 06:30 Conjugated Bilirubin 0.09 mg/dL (0.00-0.20) 04/19/20 06:30 AST 14 U/L (15-37) L 04/19/20 06:30 ALT 21 U/L (14-59) 04/19/20 06:30 Alkaline Phosphatase 29 U/L (46-116) L 04/19/20 06:30 Troponin I 0.21 ng/mL (<0.06) H* 04/18/20 06:45 NT-Pro-B Natriuret Pep 1537 pg/mL (<300) H 04/17/20 15:25 Total Protein 5.9 g/dL (6.4-8.2) L 04/19/20 06:30 Albumin 2.9 g/dL (3.4-5.0) L 04/19/20 06:30 Triglycerides 131 mg/dL (<150) 04/18/20 06:45 Total Cholesterol 186 mg/dL (<200) 04/18/20 06:45 LDL Cholesterol, Calc 114 mg/dL (<100) H 04/18/20 06:45 HDL Cholesterol 46 mg/dL (40-60) 04/18/20 06:45 TSH 1.81 uIU/mL (0.36-3.74) 04/17/20 10:07 Urine Color Yellow (Yellow) 04/17/20 12:15 Urine Clarity Clear (Clear) 04/17/20 12:15 Urine pH 7.0 (5-8) 04/17/20 12:15 Ur Specific [place] 1.025 (1.005-1.025) 04/17/20 12:15 Urine Protein 30 mg/dL (Negative) H 04/17/20 12:15 Urine Ketones Negative mg/dL (Negative) 04/17/20 12:15 Urine Blood Trace-intact (Negative) H 04/17/20 12:15 Urine Nitrite Negative (Negative) 04/17/20 12:15 Urine Bilirubin Negative (Negative) 04/17/20 12:15 Urine Urobilinogen 0.2 EU/dL (Up TO 0.2) 04/17/20 12:15 Ur Leukocyte Esterase Trace (Negative) H 04/17/20 12:15 Urine RBC 5-10 HPF (0-2) H 04/17/20 12:15 Urine WBC 10-20 HPF (0-5) H 04/17/20 12:15 Ur Epithelial Cells Many HPF (Negative) 04/17/20 12:15 Urine Crystals Moderate amorphous HPF (Negative) 04/17/20 12:15 Urine Bacteria HPF (Negative) 04/17/20 12:15 Urine Casts Comment LPF (Negative) 04/17/20 12:15 Urine Mucus Negative (Negative) 04/17/20 12:15 Ur Culture Indicated? No/sq. contamination 04/17/20 12:15 Urine Glucose Negative mg/dL (Negative) 04/17/20 12:15 COVID-19 PCR Negative (Negative) 04/17/20 16:20 Nasopharyn COVID-19 PCR Not Applicable 04/17/20 16:20 Ref Test [facility] 04/17/20 16:20
[2020-04-19] MEDS: Normal Saline 1,000 ML 50 ML IV (08:49)
[2020-04-19 08:57] LABS: Troponin I 0.06 ng/mL (<0.06)
--- NOTE | 2020-04-19 11:53 | PDOC.CMPRO ---
- If Service Date Differs Date of service: 04/19/20 Time of Service: 11:53 Care Management Progress Note S/O: Caron continues to meet inpatient level of care. A review of her chart shows that troponins have trended down and she is tolerating the cardizem. Caron is scheduled for a stress test, echocardiogram, and ultrasound to rule out gallbladder disease on Monday. CM will continue to follow. A: Caron is a 85 year old female admitted to [facility] on 04/18/2020 for paroxysmal SVT and elevated troponin. P: Anticipate Caron will be discharged home when medically cleared by provider. Family will drive her home via private vehicle when ready. She will follow up with her PCP, engine maintenance mechanic, and discharge plan of care. CM will continue to support patient and discharge planning needs.
[2020-04-19] MEDS: Sucralfate 1 GM TAB PO ×3 (12:35→21:21)
[2020-04-19 13:27] LABS: Troponin I 0.05 ng/mL (<0.06)
[2020-04-19] MEDS: Enoxaparin 40 MG/0.4 ML SYR SC (16:39)
[2020-04-19] MEDS: Pravastatin 40 MG TAB PO (19:33)
--- NOTE | 2020-04-20 | DI.US_ITS ---
EXAM: US ABDOMEN CLINICAL HISTORY: RUQ pain, nausea, concern for cholecystitis TECHNIQUE: Ultrasound abdomen performed using standard protocol. COMPARISON: CT CT ABDOMEN PELVIS W from 04/17/2020 FINDINGS: ABDOMINAL AORTA AND IVC: Visualized portions normal caliber. PANCREAS: Normal where visualized. LIVER: Normal. Hepatopedal flow in the Portal Vein. GALLBLADDER: 2.7 mm mobile gallstone. No evidence of wall thickening. No pericholecystic fluid ident ified. BILIARY SYSTEM: Common bile duct measures < 7 mm. No intrahepatic biliary ductal dilation. JOHNSON'S SIGN: Negative. KIDNEYS: Kidneys are symmetric in size. 4 mm echogenic focus in the left kidney which may represent a nonobstructing stone. No evidence of hydronephrosis. 3.3 x 2.8 x 3.4 cm simple cyst on the left kid teto. SPLEEN: Not enlarged. ASCITES: None seen. IMPRESSION: 1. No acute abdominal process. 2. Cholelithiasis. No sonographic evidence of acute cholecystitis or biliary ductal dilatation. DATA REPOSITORY:
[2020-04-20 03:05] VITALS: BP 145/84; PULSE 70; RESP 17; TEMP 36; O2SAT 94
[2020-04-20] MEDS: Normal Saline 1,000 ML 50 ML IV (03:52)
[2020-04-20 07:21] VITALS: BP 149/71; PULSE 69; RESP 19; TEMP 36.8; O2SAT 95
[2020-04-20 07:23] LABS: HCT 44.9 % (36.0-46.0); HGB 14.6 g/dL (11.2-15.7); MCH 30.2 pg (27.0-33.0); MCHC 32.5 % (32.0-36.0); Platelet Count 191 10^3/uL (130-400); RBC 4.83 10^6/uL (3.93-5.22); RDW-SD 44.3 fL
[2020-04-20] MEDS: Budesonide/Formoterol 80/4.5 10.2 GM 120 PUFF INH IH (07:58)
--- NOTE | 2020-04-20 08:00 | DI.US_ITS ---
APPROVED REPORT EXAM: Comprehensive 2D, Doppler, and color-flow Echocardiogram Patient Location: In-Patient Room/Bed: 206A Ticket Scheduler: Anna Wilkinson RDCS (AE) Indications: SVT, NSTEMI Other Information Study Quality: Adequate Conclusion Normal left ventricular wall thickness and chamber size. Estimated ejection fraction is 55%. There are no segmental wall motion abnormalities Normal right ventricular size and function Both atria are normal in size The aortic valve is trileaflet and mildly sclerotic with mild regurgitation Mild mitral annular calcification. Mild mitral regurgitation Structurally normal tricuspid valve, with trace regurgitation Structurally normal pulmonic valve, trace physiologic regurgitation Wall motion Left Ventricle The left ventricle is normal size. The left ventricular systolic function is normal. The left ventric ular ejection fraction is within the normal range. There is normal left ventricular wall thickness. T here is normal LV segmental wall motion. There is no ventricular septal defect visualized. LVEF is 55 %. Right Ventricle The right ventricle is normal size. The right ventricular systolic function is normal. The RVSP is 15 .4 mmHg. Atria The left atrium size is normal. The right atrium size is normal. The interatrial septum is intact wit h no evidence for an atrial septal defect. Aortic Valve The Aortic valve is sclerotic. Aortic valve is trileaflet. There is no aortic valvular stenosis. Mild aortic regurgitation. Mitral Valve Mild mitral annular calcification. No evidence of mitral valve stenosis. Mild mitral regurgitation. Tricuspid Valve The tricuspid valve is normal in structure. There is no tricuspid valve stenosis. Trace tricuspid reg urgitation. Pulmonic Valve The pulmonary valve is normal in structure. There is no pulmonic valvular stenosis. Trace pulmonic re gurgitation. Great Vessels The aortic root is normal in size. The ascending aorta is mildly dilated. Aortic arch is not well vis ualized. IVC is normal in size and collapses >50% with inspiration. Pericardium There is no pericardial effusion. 2D Dimensions IVSD d PLAX 0.92 cm F: 0.6-1.0 LV Vol A2C d MOD 69.2 mL LVPW d PLAX 0.92 cm F: 0.6 - 1.0 LV Vol A4C d MOD 77.3 mL LVID d PLAX 4.88 cm F: 3.8 - 5.2 LA vol/ BSA A2C s A-L 23.0 mL/m2 LVDs 3.60 cm F: 2.2 - 3.5 LA vol/ BSA A4C s A-L 20.9 mL/m2 Ao Root d 2.80 cm F: 2.7 - 3.3 LA Vol/ BSA Biplane s A-L 21.9 mL/m2 RA Area A4C 13.23 cm2 LA Area A4C s MOD 13.35 cm2 RA Vol/ BSA A4C s A-L 21.0 mL/m2 LA Area A2C s MOD 14.03 cm2 Ao Asc Diam d 3.35 cm F: 2.3 - 3.1 LV EF A4C MOD 53.6 % LV EF Teichholz 50.4 % LV EF A2C MOD 50.2 % LVEF (Huggins's) 53.88 % F: 54 - 74 LV EF Biplane MOD 53.9 % LV Volume 63.35 mL F: 46 - 106 SV 41.85 mL LV Volume Index 40.09 mL/m2 F: 29 - 61 SV Index 26.41 mL/m2 LV Vol Biplane MOD 77.7 mL FS 25.60 % M-Mode TAPSE 1.76 cm (M/F) >1.7 LV Diastology MV E' medial 0.049 (>0.07 m/s) E/A Ratio 0.7 LV E/e MED 15.05 (<14) MV E Vmax 0.74 (0.4-1.3 m/s) MV E' lateral 0.075 (>0.1 m/s) MV A Vmax 1.00 (0.4-1.3 m/s) LV E/e LAT 9.85 (<14) MV E/A Ratio 0.72 MV E/E' medial 15.08 MV E/E' lateral 9.89 Aortic Valve LVOT Area 3.01 cm2 AoV Area Vmax 1.82 cm2 LVOT Vmax 1.07 m/s AoV Area/ BSA (Vmax) 1.15 cm2/m2 LVOT Mean Oral. 0.80 m/s UCHE Mean Oral. 2.09 cm2 LVOT Peak Grad 4.6 mmHg UCHE Mean Oral. Index 1.32 cm2/m2 LVOT Mean Grad 2.9 mmHg AR DT 1880 msec LVOT VTI 0.257 m AR PHT 545 msec LVOT Diam s 1.95 cm AoV Vmax 1.77 m/s Velocity Ratio 0.60 AoV Mean Oral. 1.16 m/s AoV Peak Grad 12.5 mmHg LVOT SV 77.28 mL AoV Mean Grad 6.2 mmHg AoV VTI 0.332 m AoV Area VTI 2.33 cm2 AoV Area/ BSA (VTI) 1.47 cm/m2 Mitral Valve MV DT 273 (160-240 msec) MV PHT 79 msec MV Area PHT 2.77 cm2 Pulmonary Valve PV Vmax 0.73 (0.5-1.5 m/s) RVOT Peak Gr. 1.19 mmHg PV Peak Grad 2.1 mmHg RVOT Mean Gr. 0.65 mmHg PV Mean Grad 1.3 mmHg RVOT VTI 0.120 m PV VTI 0.150 m RVOT Vmax 0.55 m/s Tricuspid Valve TR Peak Grad 12.3 mmHg TR Vmax 1.76 m/s RA Pressure 3.00 mmHg RVSP (TR) 15.4 mmHg
--- NOTE | 2020-04-20 08:00 | DI.NM_ITS ---
APPROVED REPORT Exam: Exercise transition to pharmacological stress test Patient Location: In-Patient Room/Bed: 206 Stress Nurse: Cate Bain RN BMI: 27.66 Baseline Rhythm: Sinus Rhythm Comment: Abnormal R-wave progression, early transition Indications: Chest pain. Elevated troponins. Medical History Medical History: SVT. Elevated troponin. Asthma. GERD. Cardiac Medications: Diltiazem. Aspirin. Allergies: Meperidine. Sulfa. Codeine. Cardiac Risk Factors: FHX of CAD, Asthma Exercise History: Physically active Lung Sounds: Clear to auscultation Heart Sounds: Regular Stress Test Details Test: Exercise stress converted to pharmacologic stress due to failure to obtain a diagnostic stress test. Nuclear Acquisition: Rest Tc-99m/Stress Tc-99m 1 day Rest Isotope: Tc-99m Sestamibi. Dose: 8.8 Date: 04/20/2020 Injection Time: 1220 Stress Isotope: Tc-99m Sestamibi. Dose: 32.8 Date: 04/20/2020 Injection Time: 1345 HR Resting HR Supine: 77 bpm Max Heart Rate (APMHR): 136.245574 bpm Resting HR Standin bpm Target HR (85% APMHR): 115.683117 bpm Max HR Achieved: 98 bpm % of APMHR: 72.06 Recovery HR: 87 bpm HR response to stress: Normal HR response to stress BP Resting BP Supine: 158/80 mmHg Resting BP Standin/76 mmHg Max BP: 150/80 mmHg Recovery BP: 148/74 mmHg BP response to stress: Normal blood pressure response to stress. ECG Resting ECG: Sinus Rhythm Stress ECG: Sinus Rhythm ST Change: No significant ST segment changes Arrhythmia: None Recovery ECG: Sinus Rhythm Recovery ST Change: No significant ST segment changes Recovery Arrhythmia: None Clinical Reason for Termination: Dyspnea Stress Symptoms: Abdominal discomfort, Dyspnea, Leg Fatigue, Dizziness Exercise duration: 1 min58 sec Highest Stage Reached: Stage 1: 1.7 mph at 10% grade. Stress ECG Conclusion 1. EKG showed nondiagnostic ST-T abnormality 2. The patient underwent pharmacologic stress with regadenoson. 3. Blunted heart rate and blood pressure response to pharmacologic stress. The patient achieved 72% of predicted heart rate for age 4. Electrocardiographically the test was nondiagnostic due to inadequate heart rate 5. Sporadic PVCs were seen Stress Test Summary STAGE Time (mins) Speed (mph) Grade (%) HR BP SYMPTOMS METS Supine 77 158/80 Standing 86 152/76 1 3 1.7 10 102 4.6 1 min post Lexiscan injection 98 144/70 3 min post Lexiscan injection 94 138/74 6 min post Lexiscan injection 90 150/80 9 min post Lexiscan injection 87 148/74 MPI Conclusion Normal myocardial perfusion without evidence of ischemia or infarction EF is 74% Radiologist Interpretation Radiologist Interpretation by: Porfirio Barton MD Interpretation Date/Time: 04/20/2020 15:41:53
[2020-04-20] MEDS: Docusate Sodium 100 MG CAP PO (09:52)
[2020-04-20] MEDS: Aspirin E.C. 81 MG TABEC PO (09:52)
[2020-04-20] MEDS: Pantoprazole 20 MG TABCR PO (09:52)
[2020-04-20] MEDS: Sucralfate 1 GM TAB PO ×2 (09:52→16:41)
[2020-04-20] MEDS: dilTIAZem 30 MG TAB PO ×2 (10:18→15:15)
[2020-04-20 11:20] VITALS: BP 113/74; PULSE 73; RESP 17; TEMP 36.3; O2SAT 96
--- NOTE | 2020-04-20 11:23 | CHAPLAIN ---
Caron was sitting up in her chair when I visited. She was very pleasant, and told me about her tests earlier today, which she said indicated that she doesn't have anything wrong with her gallbladder. She is waiting for a stress test later today and hoping to go home after that. She lives alone with her dog Jayne, and this is the first time she has left Jayne alone so she is worried about her. Caron is the eldest of nine kids and her brothers have been calling to check on her. She doesn't have children, but is close to her siblings. 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 She has appointed a nephew to be her DPOA and has arranged for a burial plot for herself because, she said, when my times comes, I hope it'll be easier on my family.
--- NOTE | 2020-04-20 13:47 | W.NUTRFU ---
Date of service: 04/20/20 Time of Service: 13:47 Nutritional Follow up NOTE: 85 year old female admitted with abdominal pain with hx of asthma, GERD. NPO today for procedure. Will monitor po intake, labs, weight and adjust meal plan for optimal nutrient intake. BMI wnl for age, weight has been stable in last year. Time Spent in Nutritional Counseling and Treatment: 0 time spent face to face
[2020-04-20] MEDS: Regadenoson 0.4 MG/5 ML SYR IVP (14:48)
--- NOTE | 2020-04-20 15:05 | W.PM.DS.N ---
Date of service: 04/20/20 Time of Service: 15:05 DS: Diagnosis Discharge Diagnosis (1) SVT (supraventricular tachycardia): Status: Resolved (2) Abdominal pain: Status: Acute (3) Elevated troponin: Status: Acute (4) Asthma: Status: Chronic (5) GERD (gastroesophageal reflux disease): Status: Chronic Discharge Plan Disposition Patient Disposition: HOME Condition: Fair Discharge Details Chief Complaint: Palpitatns Clinical Impression: Palpitations, Elevated troponin Reason For Visit: PAROXYSMAL SVT,ELEVATED TROPONIN Admit Date/Time: 04/18/20 09:35 Admit Provider: Yamilka Kowalski Attending Provider: Yamilka Kowalski Primary Care Provider: Pati Zamudio ED Provider: Rebecca Linares [facility] Hospital Course Hospital Course: This is an 85 year old female with history of palpitations in the past (not investigated), as well as asthma on advair and albuterol, hiatal hernia, and hearing loss, who was brought to [facility] ED by ambulance after having an episode of dizziness, palpitations, left sided chest pain, shortness of breath, belching, nausea (but no vomiting) and desire to defecate when she first got up to use the restroom today. Unlike her prior episodes of palpitations, this episode did not subside on its own. She was found to be in SVT by the EMS, but converted spontaneously into NSR in which she has remained. Her initial troponin was negative; the second one went up to 0.22 and peaked at 0.33. Serial EKGs do not show ischemia. She remained chest pain free. Her troponin normalized. She was started on protonix and carafate, as well as cardizem. She underwent an exercise stress test which was discontinued d/t dyspnea, the MPI showed normal myocardial perfusion without evidence of ischemia or infarct. Her EF 74%. echocardiogram showed: Normal left ventricular wall thickness and chamber size. Estimated ejection fraction is 55%. There are no segmental wall motion abnormalities Normal right ventricular size and function Both atria are normal in size The aortic valve is trileaflet and mildly sclerotic with mild regurgitation Mild mitral annular calcification. Mild mitral regurgitation Structurally normal tricuspid valve, with trace regurgitation Structurally normal pulmonic valve, trace physiologic regurgitation. She also underwent an abdominal ultrasound to evaluate gall bladder which showed no acute findings. Her elevated troponin is likely demand ischemia and further outpatient cardiology evaluation should be per pcp. She is being discharged to home on cardizem 30 mg po TID, protonix 20 mg daily and carafate qid and should be referred to surgery for EGD outpatient. she will also have a cardiac event recorder at discharge. case and discharge plan discussed with Dr Kowalski who is in agreement Home Meds and New Rx's Prescriptions: New pravastatin 40 mg Tablet 40 mg PO QPM Qty: 30 RF: 0 sucralfate 1 gram Tablet 1 g PO AC & HS Qty: 120 RF: 0 aspirin 81 mg Tablet,Delayed Release (Dr/Ec) 81 mg PO DAILY Qty: 0 RF: 0 pantoprazole [Protonix] 20 mg Tablet,Delayed Release (Dr/Ec) 20 mg PO DAILY@0730 Qty: 30 RF: 0 diltiazem HCl [Cardizem] 30 mg Tablet 30 mg PO TID Qty: 90 RF: 0 Continued fluticasone propion-salmeterol [Advair Diskus] 1 EACH blister with device 1 puff Inhalation BID RF: 0 albuterol sulfate [ProAir HFA] 8.5 GM HFA aerosol inhaler 2 puff Inhalation PRN PRNRF: 0 Discharge Instructions Instructions: Supraventricular Tachycardia (DC) Referrals: Pati Zamudio MD [Primary Care Provider] - Activity:: Activity as Tolerated Equipment/Supplies:: No Equipment Needed Diet:: As Tolerated Discharge Orders Discharge Orders: Discharge Order (Routine); Ordered 04/20/20 Ordered By: Jennyfer Evangelista Other Ambulatory Orders: Cardiac Event Recorder (Outpt) (ONCE) Location: None Selected Ordered By: Jennyfer Evangelista DS: Summary Status at Discharge Functional status at discharge: independent ambulation Overall status at discharge: patient is progressing back to baseline Mental Status: mental status grossly normal Speech and Movement: speech and movement normal Mood: congruent mood Affect: normal affect Exam Const General: cooperative, healthy appearing, comfortable and no acute distress Nutritional Appearance: average body habitus Orientation: alert, awake and oriented x3 HENMT Head: normal to inspection, normocephalic and atraumatic Mouth: oral mucosae normal Chest Chest: normal inspection of the chest Resp Effort & Inspection: normal respiratory effort Auscultation: clear to auscultation bilaterally Cardio Rate: regular rate Rhythm: regular rhythm GI Inspection: normal to inspection Palpation: soft Auscultation: normal bowel sounds Skin General skin exam: no rashes or lesions noted Neuro General: patient alert, patient awake and patient oriented x3 Extrem General: normal to inspection, full ROM and no pedal edema Psych Appearance: grossly normal Mental Status: mental status grossly normal Speech and Movement: speech and movement normal Mood: congruent mood Affect: normal affect DS: Data Vitals/I&O Vitals and I&O: Vital Signs Temperature 36.3 C L 04/20/20 11:20 Temperature Source Tympanic 04/20/20 11:20 Pulse 73 04/20/20 11:20 Pulse Rhythm Regular 04/20/20 14:30 Pulse 76 04/17/20 15:50 Respiratory Rate 17 04/20/20 11:20 Respiratory Effort Non-Labored 04/20/20 00:00 Respiratory Depth Normal 04/20/20 14:30 Respiratory Pattern Normal 04/20/20 14:30 Blood Pressure 113/74 04/20/20 11:20 Blood Pressure Mean 67 04/17/20 15:46 Blood Pressure Position Supine 04/17/20 09:54 Pulse Oximetry 96 04/20/20 11:20 Oxygen Delivery Method Room Air 04/20/20 11:20 Oxygen Flow Rate 0 04/20/20 11:20 Pain Level 0 04/20/20 11:20 Intake & Output 04/19/20 04/20/20 04/20/20 23:59 11:59 23:59 Intake Total 480 / 1692.5 962.5 / 962.5 Output Total 1500 / 4300 1100 / 1100 Balance -1020 / -2607.5 -137.5 / -137.5 Weight 62.4 kg Intake: IV 962.5 / 962.5 Oral 480 / 720 Output: Urine 1500 / 4300 1100 / 1100 Other: Urine Color Pale Yellow Yellow Urine Appearance Clear Clear Clear Urine Odor None Normal None Stool Size Small Stool Characteristics Soft Formed Brown Voiding Methods Toilet Toilet Toilet Data Completed and Pending Labs on day of discharge: Labs from last 24 hours 04/20/20 06:55 WBC 5.70 RBC 4.83 Hgb 14.6 Hct 44.9 MCV 93.0 MCH 30.2 MCHC 32.5 RDW 13.0 Plt Count 191 MPV 11.0 PFSH Medical History (Updated 04/18/20 @ 15:44 by Yamilka Kowalski MD) Asthma (Chronic) Bee sting allergy (Acute) Environmental allergies (Acute) GERD (gastroesophageal reflux disease) (Chronic) H/O Radha-Escalera syndrome (Acute) Hiatal hernia (Chronic) Hyperlipidemia (Acute) Osteoporosis (Chronic) Palpitations (Acute) Sensorineural hearing loss of both ears (Acute) Surgical History (Updated 04/17/20 @ 17:30 by Yamilka Kowalski MD) H/O esophagogastroduodenoscopy (Chronic) History of appendectomy (Chronic) History of repair of hiatal hernia (Acute) S/P colonoscopy (Acute) S/P tonsillectomy and adenoidectomy (Acute) S/P total abdominal hysterectomy and bilateral salpingo-oophorectomy (Acute) Family History (Updated 04/17/20 @ 17:32 by Yamilka Kowalski MD) Brother Heart disease Diabetes Self No problems noted. Sister Stroke Paternal Aunt No problems noted. Paternal Grandfather Cancer stomach cancer Maternal Grandfather Cancer throat cancer (smoker) Social History Smoking/Tobacco Use Status: Never Alcohol Intake: never Drug use: Never Substance use type: does not use Do you feel safe at home: Yes Do you feel safe in your relationship?: Yes
[2020-04-20] MEDS: Enoxaparin 40 MG/0.4 ML SYR SC (15:15)
[2020-04-20 16:25] VITALS: BP 129/74; PULSE 79; RESP 19; TEMP 36.5; O2SAT 93
--- NOTE | 2020-04-20 18:09 | PDOC.CMDIS ---
- If Service Date Differs Date of service: 04/20/20 Time of Service: 18:09 LACE Index Scoring Tool - Questions: Length of Stay (in days): 2 Acuity (Admit via E.D.?): Yes E.D. Visits: 1 - Answers: Total Score: 6 Risk of Readmission: Low Risk Care Management Discharge Reason for Hospitalization: Paroxysmal SVT, elevated troponin. Discharge Plan: Caron will be discharged home with no services. She will follow up with her PCP, health information director and plan of care as directed. She will be transported home by family via private vehicle. Patient/Family Education Needs: Discharge instructions, limitations and follow up plan of care, including Ask Me Three and self management.
--- NOTE | 2020-05-24 17:14 | RESPIRATORY ---
Spoke To SHUN Beltran (K[facility]M) who is covering call today. 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 Report is in Cardiac Reports and is reading Sinus Rhythm with run of V-Tach (7 beats) PVC's (2in 1Min).
== END 2020-04-20 17:28 | disposition home or self-care (01) | DRG 309 ==
LOC: ER 15:56 → MS 16:01
PROVIDERS: Student in an Organized Health Care Education/Training Program; Admitting Provider Internal Medicine; Emergency Provider Physician Assistant; Visit Provider Internal Medicine
DX: I47.1 Supraventricular tachycardia (principal); I24.8 Other forms of acute ischemic heart disease; J45.909 Unspecified asthma, uncomplicated; K21.9 Gastro-esophageal reflux disease without esophagitis; K44.9 Diaphragmatic hernia without obstruction or gangrene; E78.5 Hyperlipidemia, unspecified; M81.0 Age-related osteoporosis without current pathological fracture; H90.3 Sensorineural hearing loss, bilateral
CPT/HCPCS: 36415; 78452; 80048; 80053; 80061; 80076; 85027; 93005; 93306; 94640; 96360; 96361; 99220; 99232; 99233; 99239; 99285; J1650; U0003; 71046; 74177; 76700; 81003; 81015; 83036; 83605; 83735; 83880; 84443; 84484; 85025; 85379; 85610; 85730; 93010; 93017; G0378; J2785

== ENCOUNTER 2020-04-29 02:58 | Outpatient (CLI) | payer MEDICARE, SELFPAY ==
--- NOTE | 2020-05-16 19:05 | RESPIRATORY ---
Critical Event notification fax received in Respiratory department at 18:43pm. RT called Jose as this report was not available in [email or web address], Jose rep (Tangela) offered to fax over another hard copy but did not know how to get the report to show up in patient's chart in [facility]. RT had on-call community hospitalist paged. Dr. Merida took report from RT that patient had a Run of V-Tach (9 beats) auto triggered today at 15:13pm.
--- NOTE | 2020-06-04 15:22 | W.CARDEVENT ---
Date of service: 06/04/20 Time of Service: 15:22 Cardiac Event Recorder Referring Provider:: Robb Indications:: afib Cardiac Event Note: This is a 30-day event recorder order for the indication of atrial fibrillation. ?The patient was in normal sinus rhythm for the majority of the recording with an average heart rate of 79 bpm. ?There was 1 critical event which was associated with 9 beat run of nonsustained VT. The patient had 2 other episodes of nonsustained VT lasting 4 beats and 7 beats respectively. ?The patient had 2 episodes of SVT with the longest lasting 48 seconds. ?There were no episodes of atrial fibrillation, no pauses greater than 3 seconds and no evidence of high degree heart block. ?Patient had no manually triggered events.
== END 2020-04-29 03:18 ==
PROVIDERS: Visit Provider Nurse Practitioner Acute Care
DX: I48.91 Unspecified atrial fibrillation (principal)

== ENCOUNTER 2020-06-04 15:22 | Outpatient (CLI) | payer MEDICARE, SELFPAY | END 2020-06-04 15:42 | PROVIDERS: Visit Provider Internal Medicine Cardiovascular Disease | DX: I48.91 Unspecified atrial fibrillation (principal); I47.1 Supraventricular tachycardia; I47.2 Ventricular tachycardia | CPT/HCPCS: 93272 ==

== ENCOUNTER → 2020-06-19 10:44 | Outpatient (BNVA) | payer MEDICARE, SELFPAY | PROVIDERS: Visit Provider Internal Medicine Cardiovascular Disease | DX: I47.1 Supraventricular tachycardia (principal); R00.2 Palpitations; J45.909 Unspecified asthma, uncomplicated; K21.9 Gastro-esophageal reflux disease without esophagitis | CPT/HCPCS: 99203; 99214 ==

== ENCOUNTER → 2020-11-03 10:45 | Outpatient (BNVA) | payer MEDICARE, SELFPAY | PROVIDERS: PCP Family Medicine; Visit Provider Internal Medicine Cardiovascular Disease | DX: I47.1 Supraventricular tachycardia (principal); J45.909 Unspecified asthma, uncomplicated | CPT/HCPCS: 99213 ==

== ENCOUNTER → 2021-05-07 12:38 | Outpatient (BNVA) | payer MEDICARE, SELFPAY | PROVIDERS: PCP Family Medicine; Referring Provider Family Medicine; Visit Provider Internal Medicine Cardiovascular Disease | DX: I47.1 Supraventricular tachycardia (principal); Z79.899 Other long term (current) drug therapy | CPT/HCPCS: 99213 ==

== ENCOUNTER 2021-12-16 18:20 | Outpatient (REF) | payer MEDICARE, SELFPAY ==
[2021-12-16 14:47] LABS: HCT 49.5 % (36.0-46.0); HGB 15.6 g/dL (11.2-15.7); MCH 29.7 pg (27.0-33.0); MCHC 31.5 % (32.0-36.0); MCV 94 fL (80-95); MPV 11.8 fL (8.0-11.0); Platelet Count 223 10^3/uL (130-400); RBC 5.26 10^6/uL (3.93-5.22); RDW 13.4 % (11.7-14.6); RDW-SD 46.5 fL
[2021-12-16 14:58] LABS: ALT 26 U/L (14-59); AST 13 U/L (15-37); Albumin 3.7 g/dL (3.4-5.0); Alkaline Phosphatase 47 U/L (46-116); Anion Gap 8.3 mmol/L (3-11); BUN 14 mg/dL (7-18); Bilirubin, Total 0.5 mg/dL (0.2-1.0); CO2 26.7 mmol/L (21.0-32.0); CREATININE 0.8 mg/dL (0.55-1.02); Calcium 8.9 mg/dL (8.5-10.1); Calculated LDL 86 mg/dL (<100); Chloride 106 mmol/L (98-107); Cholesterol 179 mg/dL (<200); Glucose 104 mg/dL (74-106); HDL Cholesterol 65 mg/dL (40-60); Potassium 4.6 mmol/L (3.5-5.1); Sodium 141 mmol/L (136-145); Total Protein 6.8 g/dL (6.4-8.2); Triglyceride 141 mg/dL (<150)
== END 2021-12-16 18:21 | disposition home or self-care (01) ==
LOC: NCHCN 18:20
PROVIDERS: PCP Family Medicine; Visit Provider Family Medicine
DX: E78.5 Hyperlipidemia, unspecified (principal); M81.0 Age-related osteoporosis without current pathological fracture
CPT/HCPCS: 80053; 80061; 85027

== ENCOUNTER → 2022-05-13 13:35 | Outpatient (BNVA) | payer MEDICARE, SELFPAY | PROVIDERS: PCP Family Medicine; Visit Provider Internal Medicine Cardiovascular Disease | DX: I47.1 Supraventricular tachycardia (principal) | CPT/HCPCS: 99213 ==

== ENCOUNTER 2022-08-26 11:41 | Outpatient (REF) | payer MEDICARE, SELFPAY ==
[2022-08-26 15:52] LABS: Abs Immature Grans 0.01 10^3/uL (0.0-0.06); Absolute Basophil Count 0.06 10^3/uL (0.0-0.2); Absolute Eosinophil Count 0.16 10^3/uL (0.0-0.7); Absolute Lymphocyte Count 2.22 10^3/uL (1.2-3.4); Absolute Monocyte Count 0.62 10^3/uL (0.1-0.8); Absolute Neutrophil Count 4.49 10^3/uL (1.2-6.7); Basophils % 0.8; Eosinophils % 2.1; HCT 49.2 % (36.0-46.0); HGB 16.1 g/dL (11.2-15.7); Immature Grans % 0.1; Lymphocytes % 29.4; MCH 30.1 pg (27.0-33.0); MCHC 32.7 % (32.0-36.0); MCV 92 fL (80-95); Monocytes % 8.2; Neutrophils % 59.4; Platelet Count 233 10^3/uL (130-400); RBC 5.35 10^6/uL (3.93-5.22); RDW 13.4 % (11.7-14.6); RDW-SD 46.2 fL; WBC 7.56 10^3/uL (4.4-10.8)
[2022-08-26 16:17] LABS: T4 10.9 ug/dL (4.7-13.3); TSH 0.62 uIU/mL (0.36-3.74)
[2022-08-26 22:40] LABS: T3, Total 152 ng/dL (97-169)
== END 2022-08-26 11:42 | disposition home or self-care (01) ==
LOC: NCHCN 11:41
PROVIDERS: PCP Family Medicine; Visit Provider Family Medicine
DX: R61 Generalized hyperhidrosis (principal)
CPT/HCPCS: 84436; 84443; 84480; 85025

== ENCOUNTER 2022-08-29 16:09 | Outpatient (REF) | payer MEDICARE, SELFPAY ==
[2022-08-29 17:24] LABS: Bilirubin Negative (Negative); Blood Negative (Negative); Clarity Cloudy (Clear); Glucose Negative (Negative); Ketones Negative (Negative); Leukocyte Esterase Negative (Negative); Nitrite Positive (Negative); Urobilinogen 0.2 EU/dL (Up TO 0.2); pH 6.5 (5-8)
[2022-08-29 17:33] LABS: Bacteria Many HPF (Negative); C & S Indicated? No/Sq. Contamination; Crystals Negative HPF (Negative); Epithelial Cells Many HPF (Negative); Mucus Negative (Negative); Other Cells Few Renal (Negative); RBC Negative HPF (0-2)
== END 2022-08-29 16:10 | disposition home or self-care (01) ==
LOC: NCHCN 16:09
PROVIDERS: PCP Family Medicine; Visit Provider Family Medicine
DX: R61 Generalized hyperhidrosis (principal)
CPT/HCPCS: 81003; 81015

== ENCOUNTER 2023-02-08 19:03 | Outpatient (CLI) | payer MEDICARE, SELFPAY ==
--- NOTE | 2023-02-08 | DI.RAD_ITS ---
Exam(s) XR CHEST 2V PA LATERAL EXAM: XR CHEST 2V PA LATERAL CLINICAL HISTORY: Has had cough for 2-3 days feels feverish; r/o pneumonia TECHNIQUE: 2D digital imaging was performed. COMPARISON: CR XR CHEST 2V PA LATERAL from 04/17/2020 FINDINGS: HEART: Normal size. Aorta: Mildly tortuous. PULMONARY VASCULATURE: Normal. LUNGS: Question of a small patchy density seen in the right upper lobe on the PA view. PLEURAL SPACE: No pleural effusion or pneumothorax. BONE:Unremarkable for age. IMPRESSION: Patchy density right upper lobe could represent infiltrate. Follow-up recommended DATA REPOSITORY: RADIATION DOSE DELIVERED:
--- NOTE | 2023-02-08 20:01 | DI.VRAD_ITS ---
PROCEDURE INFORMATION: Exam: XR Chest Exam date and time: 02/08/2023 7:19 PM Age: 87 years old Clinical indication: Cough; Additional info: Has had cough for 2-3 days feels feverish; R/O pneumonia TECHNIQUE: Imaging protocol: Radiologic exam of the chest. Views: 2 views. COMPARISON: CR XR CHEST 2V PA LATERAL 04/17/2020 12:08 PM FINDINGS: Lungs: There is patchy right upper lobe airspace opacity. The right lung is clear. Pleural spaces: Unremarkable. No pleural effusion. No pneumothorax. Heart/Mediastinum: Unremarkable. No cardiomegaly. Bones/joints: Unremarkable. IMPRESSION: Right upper lobe airspace opacity. Follow-up to radiographic resolution recommended. Dictated and Authenticated by: Modesta Zelaya MD. Ordering:JJ Starks MD
== END 2023-02-08 19:23 ==
PROVIDERS: PCP Family Medicine; Visit Provider Physician Assistant Medical
DX: R91.8 Other nonspecific abnormal finding of lung field (principal); R05.8 Other specified cough
CPT/HCPCS: 71046

== ENCOUNTER 2023-02-08 20:17 | Outpatient (REF) | payer MEDICARE, SELFPAY ==
[2023-02-08 20:43] LABS: Source Nasal/Nares
[2023-02-08 21:50] LABS: COVID-19 PCR Negative (Negative)
== END 2023-02-08 20:18 | disposition home or self-care (01) ==
LOC: LBN 20:17
PROVIDERS: PCP Family Medicine; Visit Provider Physician Assistant Medical
DX: R05.8 Other specified cough (principal); Z20.822 Contact with and (suspected) exposure to COVID-19
CPT/HCPCS: 87635

== ENCOUNTER 2023-02-15 13:04 | Outpatient (CLI) | payer MEDICARE, SELFPAY ==
--- NOTE | 2023-02-15 | DI.RAD_ITS ---
Exam(s) XR CHEST 2V PA LATERAL EXAM: XR CHEST 2V PA LATERAL CLINICAL HISTORY: COUGH, R05.8; REPEAT IMAGING AGO AFTER COMPLETION OF ANTIBIOTICS TECHNIQUE: 2D digital imaging was performed of the chest. Two images were obtained. PA and lateral views were obtained. COMPARISON: CR,XR XR CHEST 2V PA LATERAL from 02/08/2023 FINDINGS: MEDIASTINUM: Normal. HEART: Normal. PULMONARY VASCULATURE: Normal. LUNGS: Clear. PLEURAL SPACE: No pleural effusion or pneumothorax. BONE:Within normal limits for the patient's age. OTHER FINDINGS:Postsurgical changes are again seen near the gastroesophageal junction. IMPRESSION: No acute pulmonary findings. DATA REPOSITORY: RADIATION DOSE DELIVERED:
== END 2023-02-15 13:24 ==
LOC: DI 13:04
PROVIDERS: PCP Family Medicine; Visit Provider Physician Assistant Medical
DX: R05.8 Other specified cough (principal)
CPT/HCPCS: 71046

== ENCOUNTER → 2023-05-15 09:24 | Outpatient (BNVA) | payer MEDICARE, MEDICAID, SELFPAY | PROVIDERS: PCP Family Medicine; Visit Provider Internal Medicine Cardiovascular Disease | DX: I47.1 Supraventricular tachycardia (principal) | CPT/HCPCS: 99213 ==

== ENCOUNTER 2023-08-29 15:44 | Outpatient (REF) | payer MEDICARE, MEDICAID, SELFPAY ==
[2023-08-29 14:32] LABS: Abs Immature Grans 0.01 10^3/uL (0.0-0.06); Absolute Basophil Count 0.07 10^3/uL (0.0-0.2); Absolute Eosinophil Count 0.22 10^3/uL (0.0-0.7); Absolute Lymphocyte Count 2.68 10^3/uL (1.2-3.4); Absolute Monocyte Count 0.47 10^3/uL (0.1-0.8); Absolute Neutrophil Count 3.36 10^3/uL (1.2-6.7); Eosinophils % 3.2; HCT 45.9 % (36.0-46.0); Immature Grans % 0.1; Lymphocytes % 39.4; MCH 29.9 pg (27.0-33.0); MCHC 32.7 % (32.0-36.0); MCV 91 fL (80-95); MPV 12.4 fL (8.0-11.0); Monocytes % 6.9; Neutrophils % 49.4; Platelet Count 171 10^3/uL (130-400); RBC 5.02 10^6/uL (3.93-5.22); RDW 13.3 % (11.7-14.6); RDW-SD 45.1 fL; WBC 6.81 10^3/uL (4.4-10.8)
[2023-08-29 14:45] LABS: ALT 24 U/L (14-59); AST 14 U/L (15-37); Albumin 3.5 g/dL (3.4-5.0); Alkaline Phosphatase 35 U/L (46-116); Anion Gap 9.6 mmol/L (3-11); BUN 16 mg/dL (7-18); Bilirubin, Total 0.6 mg/dL (0.2-1.0); CO2 26.4 mmol/L (21.0-32.0); CREATININE 0.7 mg/dL (0.55-1.02); Calcium 9.3 mg/dL (8.5-10.1); Calculated LDL 69 mg/dL (<100); Chloride 107 mmol/L (98-107); Cholesterol 160 mg/dL (<200); Estimated GFR 83.65 (mL/min/1.73m2); Glucose 120 mg/dL (74-106); HDL Cholesterol 64 mg/dL (40-60); Potassium 4.1 mmol/L (3.5-5.1); Sodium 143 mmol/L (136-145); Total Protein 6.7 g/dL (6.4-8.2); Triglyceride 136 mg/dL (<150)
[2023-08-29 15:03] LABS: Vitamin D 25 Total 37.3 ng/mL (30-100)
== END 2023-08-29 15:45 | disposition home or self-care (01) ==
LOC: NCHCN 15:44
PROVIDERS: PCP Family Medicine; Visit Provider Family Medicine
DX: Z00.00 Encounter for general adult medical examination without abnormal findings (principal)
CPT/HCPCS: 80053; 80061; 82306; 85025

== ENCOUNTER 2023-10-09 11:57 | Emergency (ER) | payer MEDICARE, MEDICAID, SELFPAY ==
[2023-10-09 12:04] VITALS: BP 179/91; PULSE 98; RESP 16; TEMP 36.5; O2SAT 95
--- NOTE | 2023-10-09 13:30 | DI.RAD_ITS ---
Exam(s) XR HUMERUS LT EXAM: XR HUMERUS LT CLINICAL HISTORY: Left shoulder pain. TECHNIQUE: 2D digital imaging was performed of the left humerus. Two images were obtained. AP and lateral views were obtained. COMPARISON: No exams were available for comparison FINDINGS: BONES: No acute fracture is present. No bony destructive lesion is seen. Visualized portion of elbow and shoulder joints are unremarkable. Mild degenerative changes seen at the acromioclavicular joint. SOFT TISSUE: The visualized lungs are clear. IMPRESSION: No acute fracture or dislocation. DATA REPOSITORY: RADIATION DOSE DELIVERED:
--- NOTE | 2023-10-09 13:31 | W.ED.GENAD ---
HPI General Date/Time Provider Initiated Documentation: 10/09/23 12:25. HPI Narrative: MDM Primary survey intact. Reassuring shock index. On secondary survey patient has tenderness to her left proximal humerus. No signs of any other shoulder dislocations. Left hand warm and well-perfused so I am not concern for vascular injury. Patient has abrasions to her bilateral knees but she is moving these well so not concern for any osseous abnormalities. Will have her knees cleaned. No preceding syncope to suggest PE. No chest pain no nausea no vomiting to suggest ACS. No head strike to suggest benefit from CT head. In the absence of nausea and vomiting will defer laboratory evaluation. No reported dysuria nor frequency to suggest UTI so we will defer urinalysis. 3:15 PM I have asked the emergency department Information Technology Project Manager Vianey to clean the patient's bilateral knee abrasions. Tetanus was updated. Her initial x-ray was negative for any acute osseous abnormalities however given her discomfort will increase sensitivity with CT left upper extremity. It certainly possible that the patient could have a ligamentous injury but will ensure that she does not have a fracture prior to discharge. 3:25 PM Patient reportedly had her tetanus updated last week with her primary care provider so discontinued tetanus update. 4:45 PM Patient felt nauseous for which she received ondansetron. I signed patient out to the oncoming evening provider pending read of her CT scan. Chronic conditions affecting the care of the patient: N/A History obtained from an outside historian: Patient's relative who is at her side External record review: N/A Medications: Acetaminophen oxycodone Social determinants of health affecting disposition: N/A Management discussed with: N/A Treatment/interventions considered: N/A Response to therapies provided: N/A HPI This is a [id number] 88-year-old female with a history of GERD and asthma arriving to the emergency department via private vehicle following a fall. Patient was reportedly ambulating in a parking lot. She reportedly lost her footing. She fell forward. She landed on her knees and subsequently landed on her left arm. She has had pain in her left arm subsequently. She suffered abrasions to her knees. She denied any preceding chest pain nausea vomiting shortness of breath or headaches. She was able to stand up following her fall. She is not anticoagulated. She did not strike her head. She denies routine tobacco, ethanol, and illicits. Exam General: Chronically ill-appearing in no acute distress speaking in complete sentences. Head: Normocephalic, atraumatic. Eye:[Pupils equal, round reactive to light.] Extraocular eye movements intact. No conjunctival injection. No scleral icterus. Ear, nose, mouth, throat: Grossly normal inspection. Normal voice, handling secretions normally. Neck: Trachea midline. Cardiovascular: Well-perfused distal extremities. Regular rate and rhythm Respiratory: Nonlabored respiration. Clear lungs bilaterally. Gastrointestinal: Nondistended abdomen. Musculoskeletal: Left upper extremity: Left upper extremity held in adduction at the shoulder 90 degrees of flexion at the elbow. Left hand warm well-perfused cap refill less than 2 seconds. 2+ left radial pulse. Sensation and motor function intact in the left hand across the radial, median, and ulnar nerve distributions. No tenderness throughout hand forearm elbow and distal left humerus. Patient does have tenderness on her proximal humerus. No obvious deformities. No lacerations. No ecchymoses. Shoulder appears anatomical however patient has difficulty moving her shoulder secondarily to pain. Right lower extremity: Superficial left knee abrasion Left lower extremity: Superficial right knee abrasion. Skin: Normal for age and race, grossly normal temperature and turgor. No acute rash. Neurologic: Alert and appropriate, no apparent acute deficits. GCS 15. Psychiatric: Mood and manner are appropriate. Grooming and personal hygiene are appropriate. Related Data Home Medications Medication Instructions Recorded Confirmed albuterol sulfate 90 mcg/actuation 2 puff inhalation PRN PRN 11/20/14 10/09/23 aerosol inhaler (ProAir HFA) aspirin 81 mg tablet,delayed 81 mg PO DAILY #0 tabs 04/20/20 10/09/23 release pantoprazole 20 mg tablet,delayed 20 mg PO DAILY@0730 #30 tabs 04/20/20 10/09/23 release (Protonix) pravastatin 40 mg tablet 40 mg PO QPM #30 tabs 04/20/20 10/09/23 sucralfate 1 gram tablet 1 g PO AC & HS #120 tabs 04/20/20 10/09/23 cholecalciferol (vitamin D3) 50 50 mcg PO DAILY 06/19/20 10/09/23 mcg (2,000 unit) tablet docusate sodium 100 mg capsule 100 mg PO DAILY 06/19/20 10/09/23 (Colace) psyllium husk 3.4 gram/5.4 gram 1 tbsp PO DAILY 06/19/20 10/09/23 oral powder (Metamucil) fluticasone 100 mcg-salmeterol 50 1 inh inhalation BID 11/03/20 10/09/23 mcg/dose blistr powdr for inhalation (Wixela Inhub) diltiazem HCl 120 mg capsule,24 120 mg PO DAILY #90 caps 05/13/22 10/09/23 hr,extended release Previous Rx's Medication Instructions Recorded aspirin 81 mg tablet,delayed 81 mg PO DAILY #0 tabs 04/20/20 release pantoprazole 20 mg tablet,delayed 20 mg PO DAILY@0730 #30 tabs 04/20/20 release (Protonix) pravastatin 40 mg tablet 40 mg PO QPM #30 tabs 04/20/20 sucralfate 1 gram tablet 1 g PO AC & HS #120 tabs 04/20/20 diltiazem HCl 120 mg capsule,24 120 mg PO DAILY #90 caps 05/13/22 hr,extended release Allergies Allergy/AdvReac Type Severity Reaction Status Date / Time hornet venom Allergy Severe Anaphylaxsi Verified 10/09/23 12:02 s Sulfa (Sulfonamide Allergy Severe Swelling/Ed Verified 10/09/23 12:02 Antibiotics) cesia codeine AdvReac Intermediate Nausea Verified 10/09/23 12:02 meperidine HCl [From Demerol] AdvReac Intermediate Nausea Verified 10/09/23 12:02 General Stated Complaint: Orthopedic ROBERTO: 3 Course Vital Signs Vital signs: Vital Signs Temperature 36.5 C 10/09/23 12:04 Pulse 98 H 10/09/23 12:04 Respiratory Rate 16 10/09/23 12:04 Blood Pressure 179/91 H 10/09/23 12:04 Pulse Oximetry 95 10/09/23 12:04 Temperature 36.5 C 10/09/23 12:04 Temperature Source Temporal Artery Scan 10/09/23 12:04 Pulse 98 H 10/09/23 12:04 Respiratory Rate 16 10/09/23 12:04 Blood Pressure 179/91 H 10/09/23 12:04 Blood Pressure Position Sitting 10/09/23 12:04 Pulse Oximetry 95 10/09/23 12:04 Oxygen Delivery Method Room Air 10/09/23 12:04 Oxygen Flow Rate 0 10/09/23 12:04 Pain Level 10 10/09/23 12:04 Medical Decision Making Quality:SDOH Health Related Social Needs: No Data to Display PFSH All Active Problems (Updated 10/09/23 @ 17:35 by Peter Arnold MD) Shoulder fracture, left (Acute) Abrasion of knee, bilateral (Acute) Impacted cerumen, right ear (Acute) Foot pain, bilateral (Acute) Impairment of speech discrimination (Acute) Abdominal pain (Acute) Discharge planning issues (Acute) DVT prophylaxis (Acute) Asthma (Chronic) GERD (gastroesophageal reflux disease) (Chronic) Elevated troponin (Acute) Palpitations (Acute) Sensorineural hearing loss of both ears (Acute) Medical History Bee sting allergy Environmental allergies H/O Radha-Escalera syndrome Hiatal hernia Hyperlipidemia Osteoporosis Surgical History H/O esophagogastroduodenoscopy History of appendectomy History of repair of hiatal hernia S/P colonoscopy S/P tonsillectomy and adenoidectomy S/P total abdominal hysterectomy and bilateral salpingo-oophorectomy Family History Brother Heart disease Diabetes Self No problems noted. Sister Stroke Paternal Aunt No problems noted. Paternal Grandfather Cancer stomach cancer Maternal Grandfather Cancer throat cancer (smoker) Social History Smoking/Tobacco Use Status: Never Smoking risk assessment performed?: Yes Alcohol Intake: never Drug use: Never Substance use type: does not use Housing: assisted living facility Pets and animals: Yes Pets and animals: dog(s) What type of physical activity do you participate in: walking Duration: 45-60 minutes/day Frequency: 5-6 times per week Do you feel safe at home: Yes Do you feel safe in your relationship?: Yes Sign Out Sign Out Data: Sign Out Comment: [id number] 88-year-old female with left upper extremity proximal humerus tenderness status post trip and fall. Negative initial x-rays. Awaiting read from CT. Patient will require ambulatory trial and p.o. trial prior to anticipated discharge with or without orthopedic follow-up based on results of CT scan. Last updated by Lg Shell MD at 10/09/23 17:15 Discharge Plan Disposition Patient Disposition: Home Condition: Stable Discharge Details Clinical Impression: Shoulder fracture, left, Abrasion of knee, bilateral Primary Care Provider: Urvashi Browne ED Provider: Peter Arnold Home Meds and New Rx's Prescriptions: Continued cholecalciferol (vitamin D3) 50 mcg (2,000 unit) tablet 50 mcg PO DAILY Metamucil 3.4 gram/5.4 gram powder 1 tbsp PO DAILY Rx Instructions: mix into at least 8 oz of water or juice before administering docusate sodium [Colace] 100 mg capsule 100 mg PO DAILY fluticasone propion-salmeterol [Wixela Inhub] 100-50 mcg/dose blister with device 1 inh inhalation BID diltiazem HCl 120 mg capsule,extended release 24 hr 120 mg PO DAILY Qty: 90 3RF albuterol sulfate [ProAir HFA] 8.5 GM HFA aerosol inhaler 2 puff Inhalation PRN PRN pravastatin 40 mg Tablet 40 mg PO QPM Qty: 30 0RF sucralfate 1 gram Tablet 1 g PO AC & HS Qty: 120 0RF aspirin 81 mg Tablet,Delayed Release (Dr/Ec) 81 mg PO DAILY Qty: 0 0RF pantoprazole [Protonix] 20 mg Tablet,Delayed Release (Dr/Ec) 20 mg PO DAILY@0730 Qty: 30 0RF Discharge Instructions Instructions: Proximal Humerus Fracture (ED) Additional Instructions: Take Motrin and Tylenol as needed for pain. Keep your arm in the sling for comfort. You have been referred to orthopedics for follow-up and they will contact you with the appointment. Referrals: Negrito Briggs MD [ [facility] STAFF PHYSICIAN] - Discharge Data Discharge Date/Time-TO BE ENTERED AT DEPARTURE: 10/09/23 17:54
[2023-10-09] MEDS: Acetaminophen 500 MG TAB 1000 MG PO (14:40)
[2023-10-09] MEDS: oxyCODONE 5 MG TAB PO (14:40)
[2023-10-09] MEDS: Ondansetron O.D.T. 4 MG TABEF PO (16:48)
--- NOTE | 2023-10-09 16:49 | DI.CT_ITS ---
Exam(s) CT UPPER EXTREMITY LT WO EXAM: CT UPPER EXTREMITY LT WO CLINICAL HISTORY: Left proximal humerus pain negative x-ray TECHNIQUE: Imaging Protocol: Axial computed tomography images with coronal and sagittal reformatted images were created and reviewed. CONTRAST MATERIAL: Intravenous: Omnipaque 350 Contrast volume:structured data in ml Contrast route:I V - Oral: yes / no COMPARISON: CR XR HUMERUS LT from 10/09/2023 FINDINGS: There is a E subtly impacted fracture of the humeral head-neck. No evidence of dislocation or sublux ation of the glenohumeral joint. No abnormal calcifications in the subacromial space. AC joint not distracted. Osseous glenoid appears intact. There is evidence of previous rotator cuff surgery. IMPRESSION: Subtle mildly impacted nondisplaced fracture of the humeral head-neck. No dislocation of the glenohu meral joint. RADIATION DOSE DELIVERED: 668.67mGy.cm Total DLP DATA REPOSITORY: All CT scans at this facility are submitted to the National Radiology Data Registry (NRDR) Dose Index Registry (DIR) with the [employer] ([employer]). RADIATION OPTIMIZATION: All CT scans at this facility use at least one of these dose optimization te chniques: automated exposure control; mA and/or kV adjustment per patient size (includes targeted exa ms where dose is matched to clinical indication); or iterative reconstruction.
--- NOTE | 2023-10-09 17:19 | W.EDPROG ---
Date of service: 10/09/23 Time of Service: 21:26 Medical Decision Making Signout accepted from off going provider. Patient is an 88-year-old female that presented with shoulder pain after a fall. Disposition pending CT. CT consistent with fracture, no immediate surgical intervention indicated. Provided with a sling. The patient did not tolerate the narcotic pain medication well in the emergency department, so recommending Motrin and Tylenol at home. She has been referred to orthopedics for follow-up. Quality:[facility] Health Related Social Needs: No Data to Display Sign Out Sign Out Data: Sign Out Comment: [id number] 88-year-old female with left upper extremity proximal humerus tenderness status post trip and fall. Negative initial x-rays. Awaiting read from CT. Patient will require ambulatory trial and p.o. trial prior to anticipated discharge with or without orthopedic follow-up based on results of CT scan. Last updated by Lg Shell MD at 10/09/23 17:15 Discharge Plan Disposition Patient Disposition: Home Condition: Stable Discharge Details Clinical Impression: Shoulder fracture, left, Abrasion of knee, bilateral Primary Care Provider: Urvashi Browne ED Provider: Peter Arnold Home Meds and New Rx's Prescriptions: Continued cholecalciferol (vitamin D3) 50 mcg (2,000 unit) tablet 50 mcg PO DAILY Metamucil 3.4 gram/5.4 gram powder 1 tbsp PO DAILY Rx Instructions: mix into at least 8 oz of water or juice before administering docusate sodium [Colace] 100 mg capsule 100 mg PO DAILY fluticasone propion-salmeterol [Wixela Inhub] 100-50 mcg/dose blister with device 1 inh inhalation BID diltiazem HCl 120 mg capsule,extended release 24 hr 120 mg PO DAILY Qty: 90 3RF albuterol sulfate [ProAir HFA] 8.5 GM HFA aerosol inhaler 2 puff Inhalation PRN PRN pravastatin 40 mg Tablet 40 mg PO QPM Qty: 30 0RF sucralfate 1 gram Tablet 1 g PO AC & HS Qty: 120 0RF aspirin 81 mg Tablet,Delayed Release (Dr/Ec) 81 mg PO DAILY Qty: 0 0RF pantoprazole [Protonix] 20 mg Tablet,Delayed Release (Dr/Ec) 20 mg PO DAILY@0730 Qty: 30 0RF Discharge Instructions Instructions: Proximal Humerus Fracture (ED) Additional Instructions: Take Motrin and Tylenol as needed for pain. Keep your arm in the sling for comfort. You have been referred to orthopedics for follow-up and they will contact you with the appointment. Referrals: Negrito Briggs MD [ [facility] STAFF PHYSICIAN] - Discharge Data Discharge Date/Time-TO BE ENTERED AT DEPARTURE: 10/09/23 17:54
== END 2023-10-09 17:54 | disposition home or self-care (01) ==
PROVIDERS: Emergency Provider Emergency Medicine; PCP Family Medicine
DX: S42.215A Unspecified nondisplaced fracture of surgical neck of left humerus, initial encounter for closed fracture (principal); S80.212A Abrasion, left knee, initial encounter; S80.211A Abrasion, right knee, initial encounter; Z79.82 Long term (current) use of aspirin; W01.0XXA Fall on same level from slipping, tripping and stumbling without subsequent striking against object, initial encounter; Y93.01 Activity, walking, marching and hiking; Y92.480 Sidewalk as the place of occurrence of the external cause
CPT/HCPCS: 00123; 99285; 73060; 73200; 99284

== ENCOUNTER 2023-10-25 10:44 | Outpatient (CLI) | payer MEDICARE, MEDICAID, SELFPAY ==
--- NOTE | 2023-10-25 09:45 | DI.RAD_ITS ---
Exam(s) XR SHOULDER LT COMPLETE 2+V EXAM: XR SHOULDER LT COMPLETE 2+V CLINICAL HISTORY: F/U PROXIMAL HUMERUS FX. TECHNIQUE: 2D digital imaging was performed. Three views. COMPARISON: No exams were available for comparison FINDINGS: BONES: No acute fracture is present. No bony destructive lesion is seen. JOINTS: No dislocation present. Glenohumeral joint space is maintained. There are some spurring at the undersurface of the acromion. Spurring at the greater tuberosity. SOFT TISSUE: Normal. IMPRESSION: Mild degenerative changes. DATA REPOSITORY: RADIATION DOSE DELIVERED:
== END 2023-10-25 10:45 | disposition home or self-care (01) ==
LOC: DIORS 10:44
PROVIDERS: PCP Family Medicine; Referring Provider Family Medicine; Visit Provider Physician Assistant
DX: S42.202A Unspecified fracture of upper end of left humerus, initial encounter for closed fracture; W19.XXXA Unspecified fall, initial encounter
CPT/HCPCS: 99213; 73030

== ENCOUNTER 2023-11-22 15:42 | Outpatient (CLI) | payer MEDICARE, SELFPAY ==
--- NOTE | 2023-11-22 10:30 | DI.RAD_ITS ---
Exam(s) XR SHOULDER LT COMPLETE 2+V EXAM: XR SHOULDER LT COMPLETE 2+V CLINICAL HISTORY: F/U FRACTURE. TECHNIQUE: 2D digital imaging was performed of the left shoulder. Three images were obtained. Gras hey and Y views were obtained. COMPARISON: CR XR SHOULDER LT COMPLETE 2+V from 10/25/2023 FINDINGS: BONES: There has been no change in alignment of the fracture involving the surgical neck of the left humerus. There is increased sclerosis along the fracture line suggesting some interval healing. No new fractures present. The bones are osteopenic. No bony destructive lesion is seen. JOINTS: No dislocation present. The acromioclavicular and glenohumeral joints are well maintained. SOFT TISSUE: Normal. IMPRESSION: Stable alignment of the healing left proximal humeral fracture. DATA REPOSITORY: RADIATION DOSE DELIVERED:
== END 2023-11-22 15:43 | disposition home or self-care (01) ==
LOC: DIORS 15:42
PROVIDERS: PCP Family Medicine; Referring Provider Family Medicine; Visit Provider Student in an Organized Health Care Education/Training Program
DX: S42.202D Unspecified fracture of upper end of left humerus, subsequent encounter for fracture with routine healing; X58.XXXD Exposure to other specified factors, subsequent encounter
CPT/HCPCS: 99213; 73030

== ENCOUNTER 2024-09-04 16:44 | Outpatient (REF) | payer MEDICARE, SELFPAY ==
[2024-09-04 20:56] LABS: Abs Immature Grans 0.01 10^3/uL (0.0-0.06); Absolute Basophil Count 0.07 10^3/uL (0.0-0.2); Absolute Eosinophil Count 0.13 10^3/uL (0.0-0.7); Absolute Lymphocyte Count 2.86 10^3/uL (1.2-3.4); Absolute Monocyte Count 0.56 10^3/uL (0.1-0.8); Basophils % 0.9 %; Eosinophils % 1.6 %; HCT 48.5 % (36.0-46.0); HGB 16.2 g/dL (11.2-15.7); Immature Grans % 0.1 %; Lymphocytes % 36.1 %; MCH 30.5 pg (27.0-33.0); MCHC 33.4 % (32.0-36.0); MCV 91 fL (80-95); MPV 12.1 fL (8.0-11.0); Monocytes % 7.1 %; Neutrophils % 54.2 %; Platelet Count 189 10^3/uL (130-400); RBC 5.32 10^6/uL (3.93-5.22); RDW 13.4 % (11.7-14.6); RDW-SD 45.4 fL; WBC 7.93 10^3/uL (4.4-10.8)
[2024-09-04 21:04] LABS: ALT 22 U/L (14-59); AST 23 U/L (15-37); Albumin 3.8 g/dL (3.4-5.0); Alkaline Phosphatase 48 U/L (46-116); Anion Gap 9.3 mmol/L (3-11); BUN 16 mg/dL (7-18); Bilirubin, Total 0.52 mg/dL (0.2-1.0); CO2 24.7 mmol/L (21.0-32.0); CREATININE 0.7 mg/dL (0.55-1.02); Calcium 9.5 mg/dL (8.5-10.1); Chloride 107 mmol/L (98-107); Estimated GFR 83.13 (mL/min/1.73m2); Glucose 120 mg/dL (74-106); Lipase 33 U/L (<78); Potassium 4.4 mmol/L (3.5-5.1); Sodium 141 mmol/L (136-145)
== END 2024-09-04 16:45 | disposition home or self-care (01) ==
LOC: NCHCN 16:44
PROVIDERS: PCP Family Medicine; Visit Provider Family Medicine
DX: R10.9 Unspecified abdominal pain (principal)
CPT/HCPCS: 80053; 83690; 85025

== ENCOUNTER 2024-09-05 14:49 | Emergency (ER) | payer MEDICARE, SELFPAY ==
[2024-09-05 14:52] VITALS: BP 140/92; PULSE 115; RESP 20; TEMP 36.2; O2SAT 94
[2024-09-05 16:01] LABS: Abs Immature Grans 0.03 10^3/uL (0.0-0.06); Absolute Basophil Count 0.05 10^3/uL (0.0-0.2); Absolute Eosinophil Count 0.12 10^3/uL (0.0-0.7); Absolute Lymphocyte Count 2.25 10^3/uL (1.2-3.4); Absolute Monocyte Count 0.55 10^3/uL (0.1-0.8); Absolute Neutrophil Count 3.56 10^3/uL (1.2-6.7); Basophils % 0.8 %; Eosinophils % 1.8 %; HCT 46.2 % (36.0-46.0); HGB 15.3 g/dL (11.2-15.7); Immature Grans % 0.5 %; Lymphocytes % 34.3 %; MCH 30.4 pg (27.0-33.0); MCHC 33.1 % (32.0-36.0); MCV 92 fL (80-95); MPV 10.6 fL (8.0-11.0); Monocytes % 8.4 %; Neutrophils % 54.2 %; Platelet Count 216 10^3/uL (130-400); RBC 5.04 10^6/uL (3.93-5.22); RDW 13.4 % (11.7-14.6); WBC 6.56 10^3/uL (4.4-10.8)
[2024-09-05] MEDS: Ondansetron 4 MG/2 ML VIAL IVP (16:02)
[2024-09-05] MEDS: Normal Saline Flush 10 ML SYR IVP (16:03)
[2024-09-05 16:18] LABS: ALT 19 U/L (14-59); AST 16 U/L (15-37); Albumin 3.3 g/dL (3.4-5.0); Alkaline Phosphatase 46 U/L (46-116); Anion Gap 4.8 mmol/L (3-11); BUN 15 mg/dL (7-18); Bilirubin, Total 0.24 mg/dL (0.2-1.0); CO2 30.2 mmol/L (21.0-32.0); CREATININE 0.8 mg/dL (0.55-1.02); Chloride 107 mmol/L (98-107); Estimated GFR 70.83 (mL/min/1.73m2); Glucose 144 mg/dL (74-106); Lipase 24 U/L (<78); Magnesium 2.1 mg/dL (1.8-2.4); Potassium 4.4 mmol/L (3.5-5.1); Sodium 142 mmol/L (136-145); Total Protein 6.9 g/dL (6.4-8.2); Troponin I 5 ng/L (<or=51)
[2024-09-05 16:37] VITALS: BP 147/85; PULSE 98; RESP 18; TEMP 36.6; O2SAT 92
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
[2024-09-05 17:44] VITALS: BP 147/74; PULSE 94; RESP 18; O2SAT 91
== END 2024-09-05 17:55 | disposition home or self-care (01) ==
PROVIDERS: Emergency Provider Emergency Medicine; PCP Family Medicine
DX: R11.2 Nausea with vomiting, unspecified (principal); E78.5 Hyperlipidemia, unspecified; Z79.82 Long term (current) use of aspirin
CPT/HCPCS: 36415; 80053; 83690; 96374; 99284; 83735; 84484; 85025; J2405

== ENCOUNTER 2024-10-14 12:17 | Emergency (ER) | payer MEDICARE, SELFPAY ==
[2024-10-14 12:50] VITALS: BP 136/67; PULSE 75; RESP 16; TEMP 36.4; O2SAT 94
[2024-10-14 14:05] VITALS: BP 136/67; PULSE 75; RESP 16; TEMP 36.4; O2SAT 94
[2024-10-14 14:17] LABS: Abs Immature Grans 0.01 10^3/uL (0.0-0.06); Absolute Basophil Count 0.06 10^3/uL (0.0-0.2); Absolute Eosinophil Count 0.12 10^3/uL (0.0-0.7); Absolute Lymphocyte Count 2.26 10^3/uL (1.2-3.4); Absolute Monocyte Count 0.39 10^3/uL (0.1-0.8); Absolute Neutrophil Count 3.11 10^3/uL (1.2-6.7); HCT 46.3 % (36.0-46.0); HGB 15.5 g/dL (11.2-15.7); Immature Grans % 0.2 %; MCH 30.6 pg (27.0-33.0); MCHC 33.5 % (32.0-36.0); MCV 92 fL (80-95); MPV 11.3 fL (8.0-11.0); Monocytes % 6.6 %; Neutrophils % 52.2 %; Platelet Count 211 10^3/uL (130-400); RBC 5.06 10^6/uL (3.93-5.22); RDW 13.6 % (11.7-14.6); RDW-SD 46.1 fL; WBC 5.95 10^3/uL (4.4-10.8)
[2024-10-14 14:29] LABS: Lipase 31 U/L (<78)
[2024-10-14 14:32] LABS: ALT 26 U/L (14-59); AST 18 U/L (15-37); Albumin 3.6 g/dL (3.4-5.0); Alkaline Phosphatase 44 U/L (46-116); BUN 6 mg/dL (7-18); Bilirubin, Total 0.53 mg/dL (0.2-1.0); CREATININE 0.7 mg/dL (0.55-1.02); Calcium 9.4 mg/dL (8.5-10.1); Chloride 107 mmol/L (98-107); Estimated GFR 83.13 (mL/min/1.73m2); Glucose 106 mg/dL (74-106); Magnesium 2.1 mg/dL (1.8-2.4); Potassium 3.7 mmol/L (3.5-5.1); Sodium 144 mmol/L (136-145)
[2024-10-14] MEDS: Omnipaque 350 MG/ML 100 ML BTL IJ (14:36)
[2024-10-14] MEDS: Normal Saline - Diluent 50 ML VIAL IJ (14:37)
--- NOTE | 2024-10-14 14:38 | DI.CT_ITS ---
Exam(s) CT ABDOMEN PELVIS W EXAM: CT ABDOMEN PELVIS W CLINICAL HISTORY: ABD PAIN TECHNIQUE: Imaging Protocol: Axial computed tomography images with coronal and sagittal reformatted images were created and reviewed. CONTRAST MATERIAL: Intravenous: Omnipaque 350 Contrast volume:75 mL Oral: No COMPARISON: CT CT ABDOMEN PELVIS W from 04/17/2020 FINDINGS: ABDOMEN: Lung Bases: Coronary artery calcification is present. There is scarring in the lung bases. No focal consolidating infiltrates are seen. Liver: Normal density. No measurable mass. Portal, Superior Mesenteric, and Splenic Veins: Unremarkable. Gallbladder and Biliary Tract: There is a gallstone. No biliary ductal dilatation. Pancreas: Normal density, no abnormal calcifications or inflammatory process. Spleen: Normal. Adrenals: No masses seen. Kidneys: Normal size, contour and axis. No radiodense stones or obstructive uropathy. There is a simp le cyst in the left kidney. No follow-up is recommended. Note is made of a circum aortic left renal vein. Abdominal Aorta: Abdominal portion non-dilated. Atherosclerotic calcification is present. Bowel: There is diverticulosis of the colon. There is no evidence of acute diverticulitis. There ar e postsurgical changes seen at the gastroesophageal junction. There is a right inguinal hernia conta ining an unremarkable loop of small bowel. There is no evidence of bowel obstruction or incarceratio n. Peritoneal Cavity: No ascites, collection or mesenteric inflammatory response. No free air. Lymph Nodes: Within normal limits. Bones: Within normal limits for the patient's age. 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 Soft Tissues: There is a small fat containing umbilical hernia. PELVIS: Bladder: Symmetric distention, no gross wall thickening. Reproductive Organs: The uterus is absent. Lymph Nodes: Within normal limits. Bones: Within normal limits for the patient's age. IMPRESSION: 1. No acute abdominal or pelvic process. 2. Right inguinal hernia containing unremarkable loops of small bowel. No evidence of bowel obstructi on or incarceration. 3. Colonic diverticulosis without evidence of acute diverticulitis. 4. Cholelithiasis. No biliary ductal dilatation. RADIATION DOSE DELIVERED: 489.43mGy.cm Total DLP DATA REPOSITORY: All CT scans at this facility are submitted to the National Radiology Data Registry (NRDR) Dose Index Registry (DIR) with the [employer] (A[employer]). RADIATION OPTIMIZATION: All CT scans at this facility use at least one of these dose optimization te chniques: automated exposure control; mA and/or kV adjustment per patient size (includes targeted exa ms where dose is matched to clinical indication); or iterative reconstruction.
[2024-10-14 15:35] VITALS: BP 139/81; PULSE 74; RESP 18; TEMP 36.6; O2SAT 93
[2024-10-14 15:36] VITALS: BP 139/81; PULSE 74; RESP 14; O2SAT 92
--- NOTE | 2024-10-14 17:19 | ED.GENADUL_ITS ---
Discharge Plan Disposition Patient Disposition: Home Condition: Stable Discharge Details Clinical Impression: Abdominal pain Primary Care Provider: Urvashi Browne ED Provider: Peter Arnold Home Meds and New Rx's Prescriptions: No Action cholecalciferol (vitamin D3) 50 mcg (2,000 unit) tablet 50 mcg PO DAILY Metamucil 3.4 gram/5.4 gram powder 1 tbsp PO DAILY Rx Instructions: mix into at least 8 oz of water or juice before administering docusate sodium [Colace] 100 mg capsule 100 mg PO DAILY fluticasone propion-salmeterol [Wixela Inhub] 100-50 mcg/dose blister with device 1 inh inhalation BID acetaminophen 325 mg capsule 325 mg PO BID PRN carboxymethylcellulose sodium [Refresh Tears] 0.5 % drops 1 drp ophthalmic (eye) BID diltiazem HCl 120 mg capsule,extended release 24 hr 120 mg PO DAILY Qty: 90 3RF albuterol sulfate [ProAir HFA] 8.5 GM HFA aerosol inhaler 2 puff Inhalation PRN PRN pravastatin 40 mg Tablet 40 mg PO QPM Qty: 30 0RF sucralfate 1 gram Tablet 1 g PO AC & HS Qty: 120 0RF aspirin 81 mg Tablet,Delayed Release (Dr/Ec) 81 mg PO DAILY Qty: 0 0RF pantoprazole [Protonix] 20 mg Tablet,Delayed Release (Dr/Ec) 20 mg PO DAILY@0730 Qty: 30 0RF ondansetron 4 mg tablet,disintegrating 4 mg PO Q6H PRN (Reason: nausea and vomiting) Qty: 30 0RF Discharge Instructions Instructions: Abdominal Pain, Adult ED Additional Instructions: Lab work and CT imaging are unremarkable today. No findings of an acute abnormality causing your discomfort. Please continue to monitor symptoms. Take Tylenol as needed for pain. Follow-up with your primary care doctor if your symptoms continue Please return to the emergency department with severe pain, not tolerating anything by mouth or other concerns. Discharge Data Discharge Date/Time-TO BE ENTERED AT DEPARTURE: 10/14/24 15:38 HPI General Date/Time Provider Initiated Documentation: 10/14/24 13:41 . Limitations to Documentation: no limitations . Information obtained by: patient . HPI Narrative: 89-year-old female with past medical history of SVT, constipation presents for evaluation of some abdominal pain she reports this has been ongoing for the last several days. It is been associated with some mild nausea, no vomiting, no fever. Eating and drinking normally. Nothing exacerbates or relieves the symptoms. She has been chronically constipated. Related Data Home Medications ?Medication ?Instructions ?Recorded ?Confirmed albuterol sulfate 90 mcg/actuation 2 puff inhalation PRN PRN 11/20/14 10/14/24 aerosol inhaler (ProAir HFA) aspirin 81 mg tablet,delayed 81 mg PO DAILY #0 tabs 04/20/20 10/14/24 release pantoprazole 20 mg tablet,delayed 20 mg PO DAILY@0730 #30 tabs 04/20/20 10/14/24 release (Protonix) pravastatin 40 mg tablet 40 mg PO QPM #30 tabs 04/20/20 10/14/24 sucralfate 1 gram tablet 1 g PO AC & HS #120 tabs 04/20/20 10/14/24 cholecalciferol (vitamin D3) 50 50 mcg PO DAILY 06/19/20 10/14/24 mcg (2,000 unit) tablet docusate sodium 100 mg capsule 100 mg PO DAILY 06/19/20 10/14/24 (Colace) psyllium husk 3.4 gram/5.4 gram 1 tbsp PO DAILY 06/19/20 10/14/24 oral powder (Metamucil) fluticasone 100 mcg-salmeterol 50 1 inh inhalation BID 11/03/20 10/14/24 mcg/dose blistr powdr for inhalation (Wixela Inhub) diltiazem HCl 120 mg capsule,24 120 mg PO DAILY #90 caps 05/13/22 10/14/24 hr,extended release acetaminophen 325 mg capsule 325 mg PO BID PRN 11/22/23 10/14/24 carboxymethylcellulose sodium 0.5 1 drp ophthalmic (eye) BID 11/22/23 10/14/24 % eye drops (Refresh Tears) ondansetron 4 mg disintegrating 4 mg PO Q6H PRN nausea and 09/05/24 10/14/24 tablet vomiting #30 tabs Previous Rx's ?Medication ?Instructions ?Recorded aspirin 81 mg tablet,delayed 81 mg PO DAILY #0 tabs 04/20/20 release pantoprazole 20 mg tablet,delayed 20 mg PO DAILY@0730 #30 tabs 04/20/20 release (Protonix) pravastatin 40 mg tablet 40 mg PO QPM #30 tabs 04/20/20 sucralfate 1 gram tablet 1 g PO AC & HS #120 tabs 04/20/20 diltiazem HCl 120 mg capsule,24 120 mg PO DAILY #90 caps 05/13/22 hr,extended release ondansetron 4 mg disintegrating 4 mg PO Q6H PRN nausea and 09/05/24 tablet vomiting #30 tabs Allergies Allergy/AdvReac Type Severity Reaction Status Date / Time hornet venom Allergy Severe Anaphylaxsi Verified 10/14/24 13:22 s Sulfa (Sulfonamide Allergy Severe Swelling/Ed Verified 10/14/24 13:22 Antibiotics) cesia codeine AdvReac Intermediate Nausea Verified 10/14/24 13:22 meperidine HCl (From Demerol) AdvReac Intermediate Nausea Verified 10/14/24 13:22 General Stated Complaint: Abd Prob ROBERTO: 3 Exam Narrative Exam Narrative: Review of Systems: All systems reviewed & are unremarkable except as noted in HPI and below Well-developed, no acute distress NCAT PERRL, normal conjunctiva RRR Unlabored respiratory effort Nondistended abdomen soft nontender Extremities w/o deformity, no cyanosis, no edema No rashes or lesions. no focal neurologic deficits Appropriate mood and affect Course Vital Signs Vital signs: Vital Signs Temperature 36.4 C 10/14/24 12:50 Pulse 75 10/14/24 12:50 Respiratory Rate 16 10/14/24 12:50 Blood Pressure 136/67 10/14/24 12:50 Pulse Oximetry 94 10/14/24 12:50 Temperature 36.6 C 10/14/24 15:35 Temperature Source Oral 10/14/24 15:35 Pulse 74 10/14/24 15:36 Respiratory Rate 14 10/14/24 15:36 Blood Pressure 139/81 10/14/24 15:36 Blood Pressure Position Sitting 10/14/24 14:05 Pulse Oximetry 92 10/14/24 15:36 Oxygen Delivery Method Room Air 10/14/24 15:35 Oxygen Flow Rate 0 10/14/24 15:35 Pain Level 8 10/14/24 14:05 Lab/Test Results Lab/Test Results: Laboratory Tests Range/Units 02/24/25 14:00 WBC (4.4-10.8) 10^3/uL 5.95 RBC (3.93-5.22) 10^6/uL 5.06 Hgb (11.2-15.7) g/dL 15.5 Hct (36.0-46.0) % 46.3 H MCV (80-95) fL 92 MCH (27.0-33.0) pg 30.6 MCHC (32.0-36.0) % 33.5 RDW (11.7-14.6) % 13.6 Plt Count (130-400) 10^3/uL 211 MPV (8.0-11.0) fL 11.3 H Immature Gran % % 0.2 Neutrophils % % 52.2 Lymphocytes % % 38.0 Monocytes % % 6.6 Eosinophils % % 2.0 Basophils % % 1.0 Nucleated RBC % (0.0-0.3) % 0.0 Absolute Neutrophils (1.2-6.7) 10^3/uL 3.11 Absolute Lymphocytes (1.2-3.4) 10^3/uL 2.26 Absolute Monocytes (0.1-0.8) 10^3/uL 0.39 Absolute Eosinophils (0.0-0.7) 10^3/uL 0.12 Absolute Basophils (0.0-0.2) 10^3/uL 0.06 Sodium (136-145) mmol/L 144 Potassium (3.5-5.1) mmol/L 3.7 Chloride (98-107) mmol/L 107 Carbon Dioxide (21.0-32.0) mmol/L 29.0 Anion Gap (3-11) mmol/L 8.0 BUN (7-18) mg/dL 6 L Creatinine (0.55-1.02) mg/dL 0.7 Est GFR (CKD-EPI 2020) (mL/min/1.73m2) 83.13 Glucose (74-106) mg/dL 106 Calcium (8.5-10.1) mg/dL 9.4 Magnesium (1.8-2.4) mg/dL 2.1 Total Bilirubin (0.2-1.0) mg/dL 0.53 AST (15-37) U/L 18 ALT (14-59) U/L 26 Alkaline Phosphatase (46-116) U/L 44 L Total Protein (6.4-8.2) g/dL 7.0 Albumin (3.4-5.0) g/dL 3.6 Lipase (<78) U/L 31 Medical Decision Making Emergent evaluation of abdominal pain. Patient has benign abdominal evaluation on examination. She is not having any bowel vomiting or diarrhea. She is not having any fever or concerns for an infectious etiology. She has had some intra-abdominal surgeries but there is no signs or symptoms concerning for bowel obstruction. Lab work was obtained and reviewed. There is no leukocytosis or anemia, no electrolyte derangement or renal dysfunction. Her LFTs are unremarkable and her lipase is not elevated. The patient has CT scan obtained and this also did not reveal an acute emergent etiology of her symptoms. At this time she is stable for discharge home. Recommend close follow-up with her PCP with any ongoing symptoms. Return precautions advised. Quality:SDOH Health Related Social Needs: Health related social needs feeling lonely/isolated (Z 60.8) PFSH All Active Problems (Updated 10/14/24 @ 15:22 by Peter Arnold MD) Abdominal pain (Acute) Impacted cerumen, bilateral (Acute) Closed fracture of left proximal humerus (Acute 10/09/23) Impacted cerumen, right ear (Acute) Foot pain, bilateral (Acute) Impairment of speech discrimination (Acute) Abdominal pain (Acute) Discharge planning issues (Acute) DVT prophylaxis (Acute) Asthma (Chronic) GERD (gastroesophageal reflux disease) (Chronic) Elevated troponin (Acute) Palpitations (Acute) Sensorineural hearing loss of both ears (Acute) Medical History H/O Radha-Escalera syndrome Bee sting allergy Environmental allergies Osteoporosis Hyperlipidemia Hiatal hernia Surgical History History of repair of hiatal hernia S/P colonoscopy H/O esophagogastroduodenoscopy S/P total abdominal hysterectomy and bilateral salpingo-oophorectomy S/P tonsillectomy and adenoidectomy History of appendectomy Family History Brother Heart disease Diabetes Self No problems noted. Sister Stroke Paternal Aunt No problems noted. Paternal Grandfather Cancer stomach cancer Maternal Grandfather Cancer throat cancer (smoker) Social History Smoking/Tobacco Use Status: Never Smoking risk assessment performed?: Yes Alcohol Intake: never Drug use: Never Substance use type: does not use Housing: assisted living facility Pets and animals: Yes Pets and animals: dog(s) What type of physical activity do you participate in: walking Duration: 45-60 minutes/day Frequency: 5-6 times per week Do you feel safe at home: Yes Do you feel safe in your relationship?: Yes
== END 2024-10-14 15:38 | disposition home or self-care (01) ==
PROVIDERS: Emergency Provider Emergency Medicine; PCP Family Medicine
DX: R10.9 Unspecified abdominal pain (principal); E78.5 Hyperlipidemia, unspecified; Z79.82 Long term (current) use of aspirin
CPT/HCPCS: 36415; 80053; 83690; 99285; 74177; 83735; 85025; 99284; J3490

== ENCOUNTER 2024-11-25 08:56 | Emergency (ER) | payer MEDICARE, SELFPAY ==
[2024-11-25 09:00] VITALS: BP 151/59; PULSE 85; RESP 20; TEMP 36.5; O2SAT 95
--- NOTE | 2024-11-25 09:22 | ED.GENADUL_ITS ---
Discharge Plan Disposition Patient Disposition: Home Condition: Good Discharge Details Clinical Impression: Urticaria Primary Care Provider: Urvashi Browne ED Provider: Rebecca Linares Home Meds and New Rx's Prescriptions: New cetirizine [Zyrtec] 10 mg tablet,chewable 5 mg PO DAILY PRN (Reason: allergy symptoms) Qty: 10 0RF Continued cholecalciferol (vitamin D3) 50 mcg (2,000 unit) tablet 50 mcg PO DAILY Metamucil 3.4 gram/5.4 gram powder 1 tbsp PO DAILY Rx Instructions: mix into at least 8 oz of water or juice before administering docusate sodium [Colace] 100 mg capsule 100 mg PO DAILY fluticasone propion-salmeterol [Wixela Inhub] 100-50 mcg/dose blister with device 1 inh inhalation BID acetaminophen 325 mg capsule 325 mg PO BID PRN carboxymethylcellulose sodium [Refresh Tears] 0.5 % drops 1 drp ophthalmic (eye) BID diltiazem HCl 120 mg capsule,extended release 24 hr 120 mg PO DAILY Qty: 90 3RF albuterol sulfate [ProAir HFA] 8.5 GM HFA aerosol inhaler 2 puff Inhalation PRN PRN pravastatin 40 mg Tablet 40 mg PO QPM Qty: 30 0RF sucralfate 1 gram Tablet 1 g PO AC & HS Qty: 120 0RF aspirin 81 mg Tablet,Delayed Release (Dr/Ec) 81 mg PO DAILY Qty: 0 0RF pantoprazole [Protonix] 20 mg Tablet,Delayed Release (Dr/Ec) 20 mg PO DAILY@0730 Qty: 30 0RF ondansetron 4 mg tablet,disintegrating 4 mg PO Q6H PRN (Reason: nausea and vomiting) Qty: 30 0RF Discharge Instructions Instructions: Allergic Reaction ED Additional Instructions: As we discussed, your rash does not appear consistent with measles but more consistent with allergic reaction. This may be associated with something that you ate your exposure from your walk with her dog. Please follow-up with your primary care for reevaluation in the next 1 to 2 weeks. May need referral to bonbon cream warmer if this persists but very good chance this also may resolve and never occur again. Please continue to encourage hydration and continue with your previously prescribed medications. Please use the Zyrtec as prescribed, this is once a day and you may stop once the rash is fully resolved. You may also apply the calamine lotion up to 3 times daily to help with itch. May also use Benadryl at night if needed for itch but this can be sedating. If you develop any new or worsening symptoms please seek care urgently once again. Referrals: Urvashi Browne [Primary Care Provider] - [facility] General Date/Time Provider Initiated Documentation: 11/25/24 08:57 . Limitations to Documentation: no limitations . Information obtained by: patient, family (brother) and RN notes reviewed . History of Present Illness 89 year old F presents to the emergency department with the chief complaint of rash on abdomen and BUE, described as moderate, Quality is described as other (itching), and is localized to the chest, left, right and upper extremity. Patient started experiencing this day(s) (yesterday) and it has been constant. No relieving factors improve symptom(s), No exacerbating factors reported . Patient notes rash; denies chest pain, cough, fever/chills, loss of appetite, malaise, nausea/vomiting and shortness of breath. Patient did receive the following treatments prior to arrival, other (washed the rash with vinegar) Related Data Home Medications ?Medication ?Instructions ?Recorded ?Confirmed albuterol sulfate 90 mcg/actuation 2 puff inhalation PRN PRN 11/20/14 11/25/24 aerosol inhaler (ProAir HFA) aspirin 81 mg tablet,delayed 81 mg PO DAILY #0 tabs 04/20/20 11/25/24 release pantoprazole 20 mg tablet,delayed 20 mg PO DAILY@0730 #30 tabs 04/20/20 11/25/24 release (Protonix) pravastatin 40 mg tablet 40 mg PO QPM #30 tabs 04/20/20 11/25/24 sucralfate 1 gram tablet 1 g PO AC & HS #120 tabs 04/20/20 11/25/24 cholecalciferol (vitamin D3) 50 50 mcg PO DAILY 06/19/20 11/25/24 mcg (2,000 unit) tablet docusate sodium 100 mg capsule 100 mg PO DAILY 06/19/20 11/25/24 (Colace) psyllium husk 3.4 gram/5.4 gram 1 tbsp PO DAILY 06/19/20 11/25/24 oral powder (Metamucil) fluticasone 100 mcg-salmeterol 50 1 inh inhalation BID 11/03/20 11/25/24 mcg/dose blistr powdr for inhalation (Wixela Inhub) diltiazem HCl 120 mg capsule,24 120 mg PO DAILY #90 caps 05/13/22 11/25/24 hr,extended release acetaminophen 325 mg capsule 325 mg PO BID PRN 11/22/23 11/25/24 carboxymethylcellulose sodium 0.5 1 drp ophthalmic (eye) BID 11/22/23 11/25/24 % eye drops (Refresh Tears) ondansetron 4 mg disintegrating 4 mg PO Q6H PRN nausea and 09/05/24 11/25/24 tablet vomiting #30 tabs cetirizine 10 mg chewable tablet 5 mg (1/2 x 10 mg) PO DAILY PRN 11/25/24 (Zyrtec) allergy symptoms #10 tabs Previous Rx's ?Medication ?Instructions ?Recorded aspirin 81 mg tablet,delayed 81 mg PO DAILY #0 tabs 04/20/20 release pantoprazole 20 mg tablet,delayed 20 mg PO DAILY@0730 #30 tabs 04/20/20 release (Protonix) pravastatin 40 mg tablet 40 mg PO QPM #30 tabs 04/20/20 sucralfate 1 gram tablet 1 g PO AC & HS #120 tabs 04/20/20 diltiazem HCl 120 mg capsule,24 120 mg PO DAILY #90 caps 05/13/22 hr,extended release ondansetron 4 mg disintegrating 4 mg PO Q6H PRN nausea and 09/05/24 tablet vomiting #30 tabs cetirizine 10 mg chewable tablet 5 mg (1/2 x 10 mg) PO DAILY PRN 11/25/24 (Zyrtec) allergy symptoms #10 tabs Allergies Allergy/AdvReac Type Severity Reaction Status Date / Time hornet venom Allergy Severe Anaphylaxsi Verified 11/25/24 09:03 s Sulfa (Sulfonamide Allergy Severe Swelling/Ed Verified 11/25/24 09:03 Antibiotics) cesia codeine AdvReac Intermediate Nausea Verified 11/25/24 09:03 meperidine HCl (From Demerol) AdvReac Intermediate Nausea Verified 11/25/24 09:03 General Stated Complaint: RashLesion ROBERTO: 4 Review of Systems Constitutional Constitutional: Reports as per HPI, Denies chills and Denies fever(s) ENT Ears, Nose, Mouth, and Throat: Denies change in voice, Denies hoarseness, Denies sore throat and Denies throat swelling Cardiovascular Cardiovascular: Reports as per HPI and Denies dyspnea Respiratory Respiratory: Denies cough, Denies dyspnea and Denies wheezing Musculoskeletal Musculoskeletal: Reports as per HPI Integumentary/Breasts Skin/Breast: Reports as per HPI, Reports rash, Denies skin pain, Denies sores and Denies wounds Allergic/Immunologic Allergic/Immunologic: Denies throat swelling and Denies wheezing Exam Const General: cooperative, healthy appearing, comfortable, no acute distress and well developed Nutritional Appearance: average body habitus and well nourished Orientation: alert and awake [facility] Head: normal to inspection and normocephalic Face and sinus: normal facial exam, no fluctuance and No dry mucous membranes Mouth: oral mucosae normal, lip normal, tongue normal, moist mucous membranes, no muffled voice and other (no rash) Teeth and gingiva: dentures Throat: posterior oropharynx normal Chest Chest: rash (urticaria most prodominent inferior breast tissue) Resp Effort & Inspection: normal respiratory effort, able to speak in complete sentences and no respiratory distress Auscultation: clear to auscultation bilaterally Cardio Rate: regular rate Rhythm: regular rhythm Heart Sounds: S1 normal and S2 normal GI Inspection: other (scattered urticarial rash with excoriation) Back/Spine/Pelvis Thoracic/Lumbar Spine: thoracic and lumbar spine normal to inspection Skin Rashes: rashes noted (BUE proximally to the mid forearm, chest, upper abdomen, urticaria) Neuro General: patient alert and patient awake Cognition: normal cognition Speech: speech normal Gait: normal gait Course Vital Signs Vital signs: Vital Signs Temperature 36.5 C 11/25/24 09:00 Pulse 85 11/25/24 09:00 Respiratory Rate 20 11/25/24 09:00 Blood Pressure 151/59 H 11/25/24 09:00 Pulse Oximetry 95 11/25/24 09:00 Temperature 36.5 C 11/25/24 09:00 Temperature Source Tympanic 11/25/24 09:00 Pulse 85 11/25/24 09:00 Respiratory Rate 20 11/25/24 09:00 Blood Pressure 151/59 H 04/07/25 09:00 Blood Pressure Position Sitting 11/25/24 09:00 Pulse Oximetry 95 11/25/24 09:00 Oxygen Delivery Method Room Air 11/25/24 09:00 Oxygen Flow Rate 0 11/25/24 09:00 Medical Decision Making Patient is a pleasant 89 year old female, brought in by her brother, with c/c of rash that began yesterday. She reports that the rash began after she was for a walk outside with her dog and stopped subsequently sat in her lap. Rashes been predominantly on the upper extremities proximally and extending to the mid forearm as well as the lower aspect of the breast and upper abdomen. She has never had a rash like this historically. She denies any shortness of breath or wheezing. Denies any change in appetite. She is systemically feeling well. She was concerned that this morning she saw something about measles on the news prompting her to seek care. She does report that she had the measles when she was 7, uncomplicated. No recent change in medications. She also reports that she did try some new yogurt which may also be the source of her symptoms. She states that she took 1 Tylenol and cleaned her body with vinegar to help with symptoms, despite this had no relief. On exam, patient appears nontoxic. She does appear slightly anxious. She is no respiratory distress. Lungs are clear bilaterally. No intraoral lesions or swelling. No stridor. Patient has a raised pink lesions consistent with urticaria on the upper extremities, predominantly along the medial aspect as well as the upper abdomen and under the breasts. A few of these urticaria do spread onto the neck but they are not quite as dense in this area. Does not spread around to the back or elsewhere inspected. She does have some discoloration of the lower extremities but she reports this is chronic and unchanged, asymptomatic in this area. She did have some mild areas of excoriation. Her symptoms are most consistent with an allergic reaction, unclear what prompted this. She does not have any evidence to suggest anaphylaxis. Based on the patient's age, I do want to try to mitigate the medication risk. Per up-to-date guidelines, we will place the patient on second-generation antihistamine, put her on cetirizine. Giving her half dose based on age. Will also try debacle as it itches, sending her home with calamine lotion. Given the size of the affected area, I am concerned that topical steroids may have too much systemic absorption particularly with her age and the thinness of her skin. Strict precautions were discussed. Encourage follow-up with primary care. All of her questions and concerns were addressed and she is in agreement this plan. This documentation was generated using [employer] dictation system, please disregard any oddities of phrase or misspellings. Quality:SDOH Health Related Social Needs: Health related social needs feeling lonely/isolated (Z 60.8) PFSH All Active Problems (Updated 11/25/24 @ 09:22 by REYES Moran) Urticaria (Acute) Impacted cerumen, bilateral (Acute) Closed fracture of left proximal humerus (Acute 10/09/23) Impacted cerumen, right ear (Acute) Foot pain, bilateral (Acute) Impairment of speech discrimination (Acute) Abdominal pain (Acute) Discharge planning issues (Acute) DVT prophylaxis (Acute) Asthma (Chronic) GERD (gastroesophageal reflux disease) (Chronic) Elevated troponin (Acute) Palpitations (Acute) Sensorineural hearing loss of both ears (Acute) Medical History H/O Radha-Escalera syndrome Bee sting allergy Environmental allergies Osteoporosis Hyperlipidemia Hiatal hernia Surgical History History of repair of hiatal hernia S/P colonoscopy H/O esophagogastroduodenoscopy S/P total abdominal hysterectomy and bilateral salpingo-oophorectomy S/P tonsillectomy and adenoidectomy History of appendectomy Family History Brother Heart disease Diabetes Self No problems noted. Sister Stroke Paternal Aunt No problems noted. Paternal Grandfather Cancer stomach cancer Maternal Grandfather Cancer throat cancer (smoker) Social History Smoking/Tobacco Use Status: Never Smoking risk assessment performed?: Yes Alcohol Intake: never Drug use: Never Substance use type: does not use Housing: assisted living facility Pets and animals: Yes Pets and animals: dog(s) What type of physical activity do you participate in: walking Duration: 45-60 minutes/day Frequency: 5-6 times per week Do you feel safe at home: Yes Do you feel safe in your relationship?: Yes
[2024-11-25] MEDS: Cetirizine 10 MG TAB 5 MG PO (09:40)
== END 2024-11-25 09:46 | disposition home or self-care (01) ==
LOC: ER 10:09
PROVIDERS: Emergency Provider Physician Assistant; PCP Family Medicine
DX: L50.9 Urticaria, unspecified (principal); Z79.82 Long term (current) use of aspirin
CPT/HCPCS: 99283

== ENCOUNTER 2025-04-11 18:18 | Outpatient (REF) | payer MEDICARE, MEDICAID, SELFPAY ==
[2025-04-11 21:14] LABS: Abs Immature Grans 0.02 10^3/uL (0.0-0.06); HCT 47.6 % (36.0-46.0); HGB 15.5 g/dL (11.2-15.7); Immature Grans % 0.3 %; MCH 30.0 pg (27.0-33.0); MCHC 32.6 % (32.0-36.0); MCV 92 fL (80-95); MPV 11.7 fL (8.0-11.0); Platelet Count 257 10^3/uL (130-400); RBC 5.17 10^6/uL (3.93-5.22); RDW 13.2 % (11.7-14.6); RDW-SD 44.7 fL; WBC 7.27 10^3/uL (4.4-10.8)
[2025-04-11 21:17] LABS: Glucose Negative (Negative)
[2025-04-11 21:30] LABS: ALT 25 U/L (14-59); AST 19 U/L (15-37); Albumin 3.6 g/dL (3.4-5.0); Alkaline Phosphatase 42 U/L (46-116); Anion Gap 8.3 mmol/L (3-11); BUN 15 mg/dL (7-18); Bilirubin, Total 0.3 mg/dL (0.2-1.0); CO2 27.7 mmol/L (21.0-32.0); Calcium 9.4 mg/dL (8.5-10.1); Chloride 105 mmol/L (98-107); Estimated GFR 70.39 (mL/min/1.73m2); Glucose 108 mg/dL (74-106); Potassium 4.1 mmol/L (3.5-5.1); RBC Negative HPF (0-2); Sodium 141 mmol/L (136-145); Total Protein 7.1 g/dL (6.4-8.2)
== END 2025-04-11 18:19 | disposition home or self-care (01) ==
LOC: NCHCN 18:18
PROVIDERS: PCP Family Medicine; Visit Provider Family Medicine
DX: R41.0 Disorientation, unspecified (principal)
CPT/HCPCS: 80053; 81003; 81015; 85025; 87086

== ENCOUNTER 2025-04-25 10:32 | Emergency (ER) | payer MEDICARE, MEDICAID, SELFPAY ==
[2025-04-25 10:35] VITALS: BP 136/80; PULSE 93; RESP 20; TEMP 36.7; O2SAT 92
--- NOTE | 2025-04-25 10:51 | W.ED.GENAD ---
Discharge Plan Disposition Patient Disposition: Home Condition: Good Discharge Details Clinical Impression: Cough Primary Care Provider: Urvashi Browne ED Provider: Georgia Bradley Home Meds and New Rx's Prescriptions: No Action cholecalciferol (vitamin D3) 50 mcg (2,000 unit) tablet 50 mcg PO DAILY Metamucil 3.4 gram/5.4 gram powder 1 tbsp PO DAILY Rx Instructions: mix into at least 8 oz of water or juice before administering docusate sodium [Colace] 100 mg capsule 100 mg PO DAILY fluticasone propion-salmeterol [Wixela Inhub] 100-50 mcg/dose blister with device 1 inh inhalation BID acetaminophen 325 mg capsule 325 mg PO BID PRN carboxymethylcellulose sodium [Refresh Tears] 0.5 % drops 1 drp ophthalmic (eye) BID diltiazem HCl 120 mg capsule,extended release 24 hr 120 mg PO DAILY Qty: 90 3RF albuterol sulfate [ProAir HFA] 8.5 GM HFA aerosol inhaler 2 puff Inhalation PRN PRN pravastatin 40 mg Tablet 40 mg PO QPM Qty: 30 0RF sucralfate 1 gram Tablet 1 g PO AC & HS Qty: 120 0RF aspirin 81 mg Tablet,Delayed Release (Dr/Ec) 81 mg PO DAILY Qty: 0 0RF pantoprazole [Protonix] 20 mg Tablet,Delayed Release (Dr/Ec) 20 mg PO DAILY@0730 Qty: 30 0RF cetirizine [Zyrtec] 10 mg tablet,chewable 5 mg PO DAILY PRN (Reason: allergy symptoms) Qty: 10 0RF amoxicillin-pot clavulanate 875-125 mg tablet 1 tab PO BID Patient Comments: TAKE ONE TABLET BY MOUTH EVERY 12 HOURS FOR 7 DAYS FOR URINE INFECTION donepezil 5 mg tablet 5 mg PO DAILY Patient Comments: TAKE ONE TABLET BY MOUTH EVERY MORNING FOR MEMORY Discharge Instructions Additional Instructions: Please call your primary care provider this afternoon to schedule follow-up appointment next week for reassessment. Your blood work and chest xray were reassuring. Your symptoms today are most consistent with a viral illness. Please stay well hydrated, drinking plenty of fluids throughout the day. You may use tylenol 650 mg every 8 hours as needed. Get plenty of rest. Practice good handwashing and wear a mask in public if you are coughing to avoid spreading illness to others. Return to emergency care if you develop difficulty breathing, chest pains, worsening of cough or fever after initial improvement, inability to hold down food or fluids, abdominal pain, or if you are very worried and need to be rechecked again immediately. Referrals: Urvashi Browne [Primary Care Provider, Medicine] HPI General Date/Time Provider Initiated Documentation: 04/25/25 10:48. HPI Narrative: Caron is an 89-year-old female who presents to the emergency department today accompanied by her niece for evaluation of cough. She reports that she has had a couple of days of cough with yellow sputum production yesterday with some shortness of breath after a coughing spell, also reports feeling chilled and sore throat. Denies difficulty breathing, chest pain (denies pain though this was noted on triage), abdominal pain, change in p.o. intake, nausea/vomiting, change in bowel or bladder function. Last BM yesterday, no blood or black/tarry stools. No known recent ill contacts. She is currently being treated for UTI with Augmentin. PMH significant for: Mild asthma, Alzheimer's disease, HLD, history of SVT, hiatal hernia, GERD Related Data Home Medications ?Medication ?Instructions ?Recorded ?Confirmed albuterol sulfate 90 mcg/actuation 2 puff inhalation PRN PRN 11/20/14 04/25/25 aerosol inhaler (ProAir HFA) aspirin 81 mg tablet,delayed 81 mg PO DAILY #0 tabs 04/20/20 04/25/25 release pantoprazole 20 mg tablet,delayed 20 mg PO DAILY@0730 #30 tabs 04/20/20 04/25/25 release (Protonix) pravastatin 40 mg tablet 40 mg PO QPM #30 tabs 04/20/20 04/25/25 sucralfate 1 gram tablet 1 g PO AC & HS #120 tabs 04/20/20 04/25/25 cholecalciferol (vitamin D3) 50 50 mcg PO DAILY 06/19/20 04/25/25 mcg (2,000 unit) tablet docusate sodium 100 mg capsule 100 mg PO DAILY 06/19/20 04/25/25 (Colace) psyllium husk 3.4 gram/5.4 gram 1 tbsp PO DAILY 06/19/20 04/25/25 oral powder (Metamucil) fluticasone 100 mcg-salmeterol 50 1 inh inhalation BID 11/03/20 04/25/25 mcg/dose blistr powdr for inhalation (Wixela Inhub) diltiazem HCl 120 mg capsule,24 120 mg PO DAILY #90 caps 05/13/22 04/25/25 hr,extended release acetaminophen 325 mg capsule 325 mg PO BID PRN 11/22/23 04/25/25 carboxymethylcellulose sodium 0.5 1 drp ophthalmic (eye) BID 11/22/23 04/25/25 % eye drops (Refresh Tears) cetirizine 10 mg chewable tablet 5 mg (1/2 x 10 mg) PO DAILY PRN 11/25/24 04/25/25 (Zyrtec) allergy symptoms #10 tabs amoxicillin 875 mg-potassium 1 tab PO BID 04/25/25 04/25/25 clavulanate 125 mg tablet donepezil 5 mg tablet 5 mg PO DAILY 04/25/25 04/25/25 Previous Rx's ?Medication ?Instructions ?Recorded aspirin 81 mg tablet,delayed 81 mg PO DAILY #0 tabs 04/20/20 release pantoprazole 20 mg tablet,delayed 20 mg PO DAILY@0730 #30 tabs 04/20/20 release (Protonix) pravastatin 40 mg tablet 40 mg PO QPM #30 tabs 04/20/20 sucralfate 1 gram tablet 1 g PO AC & HS #120 tabs 04/20/20 diltiazem HCl 120 mg capsule,24 120 mg PO DAILY #90 caps 05/13/22 hr,extended release cetirizine 10 mg chewable tablet 5 mg (1/2 x 10 mg) PO DAILY PRN 11/25/24 (Zyrtec) allergy symptoms #10 tabs Allergies Allergy/AdvReac Type Severity Reaction Status Date / Time hornet venom Allergy Severe Anaphylaxsi Verified 04/25/25 10:37 s Sulfa (Sulfonamide Allergy Severe Swelling/Ed Verified 04/25/25 10:37 Antibiotics) cesia codeine AdvReac Intermediate Nausea Verified 04/25/25 10:37 meperidine HCl (From Demerol) AdvReac Intermediate Nausea Verified 04/25/25 10:37 General Stated Complaint: RespSymp ROBERTO: 3 Exam Narrative Exam Narrative: General Appearance: Normal. Patient is alert and oriented, no acute distress. Vital signs: Within normal limits, mild tachycardia noted with heart rate 93. HEENT: Oropharynx clear, no tonsillar exudate or swelling, moist mucous membranes. Respiratory: Easy work of breathing, able to speak in full sentences lungs clear to auscultation bilaterally. Gastrointestinal: Abdomen soft, non-tender, nondistended, no rigidity or guarding or masses, Skin: Warm and dry, no rash. Psychiatric: Normal. Course Vital Signs Vital signs: Vital Signs Temperature 36.7 C 04/25/25 10:35 Pulse 93 H 04/25/25 10:35 Respiratory Rate 20 04/25/25 10:35 Blood Pressure 136/80 04/25/25 10:35 Pulse Oximetry 92 04/25/25 10:35 Temperature 36.7 C 04/25/25 10:35 Temperature Source Oral 04/25/25 10:35 Pulse 93 H 04/25/25 10:35 Respiratory Rate 20 04/25/25 10:35 Blood Pressure 136/80 04/25/25 10:35 Blood Pressure Position Sitting 04/25/25 10:35 Pulse Oximetry 92 04/25/25 10:35 Oxygen Delivery Method Room Air 04/25/25 10:35 Oxygen Flow Rate 0 04/25/25 10:35 Pain Level 5 04/25/25 10:35 Medical Decision Making Initial Assessment: Cough with white sputum production for a couple of days, dyspnea associated with coughing, no chest pain or wheezing, history of heart problems, currently on Augmentin for UTI. Differential Diagnosis includes was not limited to: Pneumonia, viral illness such as COVID-19 or flu. No red flags concerning for airway compromise or ACS based on history and presentation. ED Course: - Ordered chest x-ray - Ordered blood work I independently interpreted the following tests: CBC and BMP unremarkable. COVID/flu negative. No acute abnormalities noted on chest x-ray, this was confirmed by radiologist While patient was in x-ray she did vomit x 1, which she attributes to not eating breakfast this morning and having nothing to eat while here. Zofran given. She reported feeling significantly better, denied abdominal pain or nausea. Able to eat crackers and drink francine alex without difficulty. Clinical Impression: - Cough, likely viral etiology Disposition: - Discharge home: Follow-up with PCP for further evaluation and management. Return to ED if symptoms worsen or new symptoms develop. Follow-Up: - Follow up with PCP Patient consented to the use of [facility] Imaging Data Radiologic Study: Radiologist's impression: Exam(s) XR CHEST 2V PA LATERAL EXAM: XR CHEST 2V PA LATERAL CLINICAL HISTORY: cough w sputum prod TECHNIQUE: 2D digital imaging was performed. Two views. COMPARISON: CR,XR XR CHEST 2V PA LATERAL from 02/08/2023 CR XR CHEST 2V PA LATERAL from 02/15/[address] ABDOMEN PELVIS W from 10/14/2024 FINDINGS: HEART: Normal size. Aorta: Mildly tortuous. PULMONARY VASCULATURE: Normal. MEDIASTINUM: Surgical clips noted at the GE junction. LUNGS: Clear. PLEURAL SPACE: No pleural effusion or pneumothorax. BONE:Unremarkable for age. SOFT TISSUES: Unremarkable. IMPRESSION: No acute abnormality. Quality:SDOH Health Related Social Needs: Health related social needs lonely/isolated PFSH All Active Problems (Updated 04/25/25 @ 12:58 by Georgia Banerjee) Cough (Acute) Impacted cerumen, bilateral (Acute) Closed fracture of left proximal humerus (Acute 10/09/23) Impacted cerumen, right ear (Acute) Foot pain, bilateral (Acute) Impairment of speech discrimination (Acute) Abdominal pain (Acute) Discharge planning issues (Acute) DVT prophylaxis (Acute) Asthma (Chronic) GERD (gastroesophageal reflux disease) (Chronic) Elevated troponin (Acute) Palpitations (Acute) Sensorineural hearing loss of both ears (Acute) Medical History H/O Radha-Escalera syndrome Bee sting allergy Environmental allergies Osteoporosis Hyperlipidemia Hiatal hernia Surgical History History of repair of hiatal hernia S/P colonoscopy H/O esophagogastroduodenoscopy S/P total abdominal hysterectomy and bilateral salpingo-oophorectomy S/P tonsillectomy and adenoidectomy History of appendectomy Family History Brother Heart disease Diabetes Self No problems noted. Sister Stroke Paternal Aunt No problems noted. Paternal Grandfather Cancer stomach cancer Maternal Grandfather Cancer throat cancer (smoker) Social History Smoking/Tobacco Use Status: Never Smoking risk assessment performed?: Yes Alcohol Intake: never Drug use: Never Substance use type: does not use Housing: assisted living facility Pets and animals: Yes Pets and animals: dog(s) What type of physical activity do you participate in: walking Duration: 45-60 minutes/day Frequency: 5-6 times per week Do you feel safe at home: Yes Do you feel safe in your relationship?: Yes
--- NOTE | 2025-04-25 11:00 | DI.RAD_ITS ---
Exam(s) XR CHEST 2V PA LATERAL EXAM: XR CHEST 2V PA LATERAL CLINICAL HISTORY: cough w sputum prod TECHNIQUE: 2D digital imaging was performed. Two views. COMPARISON: CR,XR XR CHEST 2V PA LATERAL from 02/08/2023 CR XR CHEST 2V PA LATERAL from 02/15/[address] ABDOMEN PELVIS W from 10/14/2024 FINDINGS: HEART: Normal size. Aorta: Mildly tortuous. PULMONARY VASCULATURE: Normal. MEDIASTINUM: Surgical clips noted at the GE junction. LUNGS: Clear. PLEURAL SPACE: No pleural effusion or pneumothorax. BONE:Unremarkable for age. SOFT TISSUES: Unremarkable. IMPRESSION: No acute abnormality. DATA REPOSITORY: RADIATION DOSE DELIVERED:
[2025-04-25 11:31] LABS: Abs Immature Grans 0.02 10^3/uL (0.0-0.06); HCT 43.1 % (36.0-46.0); HGB 14.5 g/dL (11.2-15.7); Immature Grans % 0.3 %; MCH 30.3 pg (27.0-33.0); MCHC 33.6 % (32.0-36.0); MCV 90 fL (80-95); MPV 11.3 fL (8.0-11.0); Platelet Count 175 10^3/uL (130-400); RBC 4.79 10^6/uL (3.93-5.22); RDW 13.1 % (11.7-14.6); RDW-SD 43.5 fL; WBC 7.64 10^3/uL (4.4-10.8)
[2025-04-25 11:41] VITALS: BP 139/52; PULSE 93; RESP 16; O2SAT 93
[2025-04-25 11:43] LABS: Anion Gap 11.2 mmol/L (3-11); BUN 6 mg/dL (7-18); CO2 25.8 mmol/L (21.0-32.0); Calcium 9.0 mg/dL (8.5-10.1); Chloride 99 mmol/L (98-107); Estimated GFR 89.60 (mL/min/1.73m2); Glucose 123 mg/dL (74-106); Potassium 3.9 mmol/L (3.5-5.1); Sodium 136 mmol/L (136-145)
[2025-04-25] MEDS: Ondansetron O.D.T. 4 MG TABEF PO (12:04)
[2025-04-25 12:51] VITALS: BP 137/67; PULSE 91; RESP 16; O2SAT 94
== END 2025-04-25 13:15 | disposition home or self-care (01) ==
PROVIDERS: Emergency Provider Nurse Practitioner Family; PCP Family Medicine
DX: R05.9 Cough, unspecified (principal)
CPT/HCPCS: 99283; 99284; 80048; 71046; 85025

== ENCOUNTER 2025-05-07 09:42 | Emergency (ER) | payer MEDICARE, MEDICAID, SELFPAY ==
[2025-05-07] VITALS (16 sets, daily range): BP systolic 133–153; BP diastolic 45–91; PULSE 61–96; RESP 11–25; TEMP 36.9; O2SAT 91–95
--- NOTE | 2025-05-07 10:00 | RT.EKG_ITS ---
APPROVED REPORT Exam: Resting ECG Reason for Exam: abd pain and chest pain Patient Location: E HR:89 bpm ECG Measurements Heart Rate 89 AXIS MD 189 P 52 QRSd 87 QRS 3 QT 364 T 20 QTc 443 Conclusion Sinus rhythm...normal P axis, V-rate 60- 99 Ventricular trigeminy...trigeminy string>6 w/ V complexes I have reviewed and interpreted ECG and agree with software generated interpretation.
--- NOTE | 2025-05-07 10:00 | DI.CT_ITS ---
Exam(s) CT CHEST/ABD/PEL W EXAM: CT CHEST/ABD/PEL W CLINICAL HISTORY: abd pain, vomiting, chest pain, cough, SOB. TECHNIQUE: Imaging Protocol: Axial computed tomography images with coronal and sagittal reformatted images were created and reviewed CONTRAST MATERIAL: Intravenous: Omnipaque 350 Contrast volume:75 mL Oral: None COMPARISON: CT CT ABDOMEN PELVIS W from 10/14/2024 FINDINGS: CHEST: LUNGS: No infiltrates nor pleural effusions. Calcified granulomas in the right lung noted.. MEDIASTINUM: There is gross enlargement of both lobes of the thyroid gland which resultant decreased diameter of the trachea but no shift of the trachea. The enlarged thyroid lobes extend both inferiorly and posteriorly into the mediastinum, insert cleanly proximal esophagus. Both lobes are heterogeneous and appear to contain nodules. There is no hilar adenopathy nor subcarinal adenopathy. No adenopathy in the anterior mediastinal fat nor in the aortopulmonic window CARDIAC: Heart size upper normal. No pericardial effusion.Caliber of thoracic aorta is within normal limits and there is no evidence of dissection. Coronary artery calcifications noted. OSSEOUS: No significant osseous lesions.No fractures.. ABDOMEN: There is no ascites. There is evidence of prior surgery in the proximal stomach-GE junction region. There is no prominent hiatal hernia. Stomach is not distended. LIVER: There are no focal hepatic lesions nor dilatation of intrahepatic ducts. GALLBLADDER/BILIARY: No obvious gallbladder pathology. CBD is not dilated. PANCREAS: No evidence of pancreatic mass nor dilatation of the pancreatic duct. SPLEEN: Spleen is not enlarged. There are no intrasplenic lesions. Splenic and portal veins are patent. ADRENALS: There are no significant adrenal masses. KIDNEYS: Right kidney unremarkable. There is a E solitary benign cyst in the lateral cortex of the left kidney which measures 4.7 x 3.7 cm. This benign cyst does not require further workup.. No calculi nor hydronephrosis. No solid renal masses. Ureters are not dilated and there is no obvious abnormality in the urinary bladder ABDOMINAL AORTA: The abdominal aorta is calcified but not enlarged LYMPH NODES: There is no retroperitoneal nor paraaortic adenopathy. ABDOMINAL WALL/GI: There is a right inguinal hernia which contains small bowel loops, with these loops extending 7 cm down the inguinal canal from the internal inguinal ring. These involve bowel loops do not appear obviously edematous and there is no fluid in the hernia sac. There is no transition point evident. No bowel obstruction, free air, nor abscess. There is also a small fat only containing umbilical hernia. PELVIS: LYMPH NODES: There is no intrapelvic nor inguinal adenopathy. GI: The appendix is not identified. No obvious evidence of acute appendicitis.There is scattered diverticuli in the colon but no evidence of acute diverticulitis. URINARY BLADDER: Mildly distended. Otherwise unremarkable. REPRODUCTIVE: Uterus surgically absent. No abnormal adnexal masses. No free fluid. OSSEOUS: No fractures. No significant osseous lesions. Some disc space narrowing at L3-4 level noted. IMPRESSION: 1. There is a right inguinal hernia with small bowel loop extending 7 cm down the hernia sac towards the scrotum. However, there does not appear to be a transition point in bowel diameter at this level. No obvious bowel obstruction. There is no abnormal fluid in the hernia sac nor elsewhere in the abdomen. 2. There is also a small fat only containing anterior abdominal wall umbilical hernia. 3. Grossly enlarged thyroid gland which compresses the trachea. The enlarged and heterogeneous thyroid lobes extend both caudally into the mediastinum and posteriorly to the level of the esophagus. There 4. There is evidence of previous surgery in the region of the proximal stomach possibly prior fundoplication. Report called by myself to ER physician 05/07/2025 at 12:02 pm RADIATION DOSE DELIVERED: 396.81mGy.cm Total DLP DATA REPOSITORY: All CT scans at this facility are submitted to the National Radiology Data Registry (NRDR) Dose Index Registry (DIR) with the [employer] ([employer]). RADIATION OPTIMIZATION: All CT scans at this facility use at least one of these dose optimization techniques: automated exposure control; mA and/or kV adjustment per patient size (includes targeted exams where dose is matched to clinical indication); or iterative reconstruction.
[2025-05-07 10:26] LABS: Abs Immature Grans 0.02 10^3/uL (0.0-0.06); HCT 45.4 % (36.0-46.0); HGB 15.1 g/dL (11.2-15.7); Immature Grans % 0.3 %; MCH 30.4 pg (27.0-33.0); MCHC 33.3 % (32.0-36.0); MCV 91 fL (80-95); MPV 11.0 fL (8.0-11.0); Platelet Count 237 10^3/uL (130-400); RBC 4.97 10^6/uL (3.93-5.22); RDW 13.1 % (11.7-14.6); RDW-SD 43.9 fL; WBC 7.22 10^3/uL (4.4-10.8)
[2025-05-07] MEDS: Ondansetron 4 MG/2 ML VIAL IVP (10:29)
[2025-05-07] MEDS: ACETAMINOPHEN 1,000 MG/100 ML BAG 400 MG IVPB (10:29)
[2025-05-07] MEDS: Normal Saline 500 ML IV (10:29)
[2025-05-07 10:51] LABS: ALT 28 U/L (14-59); AST 17 U/L (15-37); Albumin 3.5 g/dL (3.4-5.0); Alkaline Phosphatase 37 U/L (46-116); Anion Gap 8.5 mmol/L (3-11); BUN 10 mg/dL (7-18); Bilirubin, Total 0.5 mg/dL (0.2-1.0); CO2 28.5 mmol/L (21.0-32.0); Calcium 9.4 mg/dL (8.5-10.1); Chloride 104 mmol/L (98-107); Estimated GFR 82.62 (mL/min/1.73m2); Glucose 122 mg/dL (74-106); Lipase 17 U/L (<78); Potassium 3.5 mmol/L (3.5-5.1); Sodium 141 mmol/L (136-145); Total Protein 7.0 g/dL (6.4-8.2); Troponin I 8 ng/L (<or=51)
[2025-05-07 11:04] LABS: INR 1.1 (0.9-1.1); PTT Activated 25.9 sec (20.6-30.2); Prothrombin Time 10.7 sec (9.1-11.1)
[2025-05-07] MEDS: Omnipaque 350 MG/ML 100 ML BTL IJ (11:07)
[2025-05-07] MEDS: Normal Saline Flush 10 ML SYR IVP (11:08)
[2025-05-07] MEDS: Normal Saline - Diluent 50 ML VIAL IJ (11:08)
--- NOTE | 2025-05-07 11:16 | W.ED.GENAD ---
Discharge Plan Disposition Patient Disposition: Home Condition: Good Discharge Details Clinical Impression: Nausea, Enlarged thyroid Primary Care Provider: Urvasih Browne ED Provider: Victoriano Lawler Home Meds and New Rx's Prescriptions: No Action cholecalciferol (vitamin D3) 50 mcg (2,000 unit) tablet 50 mcg PO DAILY Metamucil 3.4 gram/5.4 gram powder 1 tbsp PO DAILY Rx Instructions: mix into at least 8 oz of water or juice before administering docusate sodium [Colace] 100 mg capsule 100 mg PO DAILY fluticasone propion-salmeterol [Wixela Inhub] 100-50 mcg/dose blister with device 1 inh inhalation BID acetaminophen 325 mg capsule 325 mg PO BID PRN carboxymethylcellulose sodium [Refresh Tears] 0.5 % drops 1 drp ophthalmic (eye) BID diltiazem HCl 120 mg capsule,extended release 24 hr 120 mg PO DAILY Qty: 90 3RF albuterol sulfate [ProAir HFA] 8.5 GM HFA aerosol inhaler 2 puff Inhalation PRN PRN pravastatin 40 mg Tablet 40 mg PO QPM Qty: 30 0RF sucralfate 1 gram Tablet 1 g PO AC & HS Qty: 120 0RF aspirin 81 mg Tablet,Delayed Release (Dr/Ec) 81 mg PO DAILY Qty: 0 0RF pantoprazole [Protonix] 20 mg Tablet,Delayed Release (Dr/Ec) 20 mg PO DAILY@0730 Qty: 30 0RF cetirizine [Zyrtec] 10 mg tablet,chewable 5 mg PO DAILY PRN (Reason: allergy symptoms) Qty: 10 0RF amoxicillin-pot clavulanate 875-125 mg tablet 1 tab PO BID Patient Comments: TAKE ONE TABLET BY MOUTH EVERY 12 HOURS FOR 7 DAYS FOR URINE INFECTION donepezil 5 mg tablet 5 mg PO DAILY Patient Comments: TAKE ONE TABLET BY MOUTH EVERY MORNING FOR MEMORY Discharge Instructions Instructions: Nausea and Vomiting, Adult ED Additional Instructions: At this time your results have returned reassuring. There is no signs of obstruction, pancreatitis, or other significant acute pathology. Please stick with a bland or liquid diet for the next 2 to 3 days. Take the Zofran bottle and pills as needed for nausea. Take [id number] Colace as needed for any constipation. If you notice any worsening of your symptoms, or any new symptoms such as vomiting, diarrhea, fever, chills, shortness of breath, chest pain, numbness, weakness, or fainting , please return immediately to the emergency department for reevaluation. Please follow up with your primary care provider as soon as possible for reassessment and reevaluation. As always, it was a pleasure participating in your medical care today. Referrals: Urvashi Browne [Primary Care Provider, Medicine] Discharge Data Discharge Date/Time-TO BE ENTERED AT DEPARTURE: 05/07/25 12:31 HPI General Date/Time Provider Initiated Documentation: 05/07/25 10:00. HPI Narrative: This is an 89-year-old female with a past medical history of asthma, hiatal hernia, previous SVT, osteoporosis, high cholesterol, previous Radha-Escalera syndrome, with a past surgical history of total abdominal hysterectomy and bilateral salpingo-oophorectomy, tonsillectomy and adenoidectomy, appendectomy, and hiatal hernia repair, who presents today with her nephew for evaluation of nausea without vomiting. Patient states that yesterday she became nauseous and has been persistent throughout the day. She feels like vomiting but has not. She also admits to occasional intermittent constipation. In addition to this she admits to mild difficulty breathing and shortness of breath which she states is slightly worse than her normal asthma. She admits to a cough with mild yellow sputum production. She denies any fever or chills. She denies any blood in her stool. Pain in the abdomen is in the upper abdominal region, and described as achy in nature. Worse with palpation. She has not been eating much because of the symptoms. She denies any other complaints at this time. Related Data Home Medications ?Medication ?Instructions ?Recorded ?Confirmed albuterol sulfate 90 mcg/actuation 2 puff inhalation PRN PRN 11/20/14 05/07/25 aerosol inhaler (ProAir HFA) aspirin 81 mg tablet,delayed 81 mg PO DAILY #0 tabs 04/20/20 05/07/25 release pantoprazole 20 mg tablet,delayed 20 mg PO DAILY@0730 #30 tabs 04/20/20 05/07/25 release (Protonix) pravastatin 40 mg tablet 40 mg PO QPM #30 tabs 04/20/20 05/07/25 sucralfate 1 gram tablet 1 g PO AC & HS #120 tabs 04/20/20 05/07/25 cholecalciferol (vitamin D3) 50 50 mcg PO DAILY 06/19/20 05/07/25 mcg (2,000 unit) tablet docusate sodium 100 mg capsule 100 mg PO DAILY 06/19/20 05/07/25 (Colace) psyllium husk 3.4 gram/5.4 gram 1 tbsp PO DAILY 06/19/20 05/07/25 oral powder (Metamucil) fluticasone 100 mcg-salmeterol 50 1 inh inhalation BID 11/03/20 05/07/25 mcg/dose blistr powdr for inhalation (Wixela Inhub) diltiazem HCl 120 mg capsule,24 120 mg PO DAILY #90 caps 05/13/22 05/07/25 hr,extended release acetaminophen 325 mg capsule 325 mg PO BID PRN 11/22/23 05/07/25 carboxymethylcellulose sodium 0.5 1 drp ophthalmic (eye) BID 11/22/23 05/07/25 % eye drops (Refresh Tears) cetirizine 10 mg chewable tablet 5 mg (1/2 x 10 mg) PO DAILY PRN 11/25/24 05/07/25 (Zyrtec) allergy symptoms #10 tabs amoxicillin 875 mg-potassium 1 tab PO BID 04/25/25 05/07/25 clavulanate 125 mg tablet donepezil 5 mg tablet 5 mg PO DAILY 04/25/25 05/07/25 Previous Rx's ?Medication ?Instructions ?Recorded aspirin 81 mg tablet,delayed 81 mg PO DAILY #0 tabs 04/20/20 release pantoprazole 20 mg tablet,delayed 20 mg PO DAILY@0730 #30 tabs 04/20/20 release (Protonix) pravastatin 40 mg tablet 40 mg PO QPM #30 tabs 04/20/20 sucralfate 1 gram tablet 1 g PO AC & HS #120 tabs 04/20/20 diltiazem HCl 120 mg capsule,24 120 mg PO DAILY #90 caps 05/13/22 hr,extended release cetirizine 10 mg chewable tablet 5 mg (1/2 x 10 mg) PO DAILY PRN 11/25/24 (Zyrtec) allergy symptoms #10 tabs Allergies Allergy/AdvReac Type Severity Reaction Status Date / Time hornet venom Allergy Severe Anaphylaxsi Verified 05/07/25 09:57 s Sulfa (Sulfonamide Allergy Severe Swelling/Ed Verified 05/07/25 09:57 Antibiotics) cesia codeine AdvReac Intermediate Nausea Verified 05/07/25 09:57 meperidine HCl (From Demerol) AdvReac Intermediate Nausea Verified 05/07/25 09:57 General Stated Complaint: GenMedical ROBERTO: 3 Exam Narrative Exam Narrative: 1.Const: Well-nourished, Well-developed, appearing stated age 2.Eyes: PERRL, no conjunctival injection, and symmetrical lids. 3.ENT: Atraumatic external nose and ears. Moist MM. Neck: Symmetric, trachea midline, No thyromegaly. 4.CVS: +S1/S2, Peripheral pulses 2+ and equal in all extremities. Brisk capillary refill in all extremities. 5.RESP: Unlabored respiratory effort. Clear to auscultation bilaterally. No wheezes rales or rhonchi 6.GI: Soft, nondistended. No guarding. Mild generalized tenderness throughout the upper quadrants, as well as the mid abdominal region. 7.MSK: Normocephalic/Atraumatic, Extremities w/o deformity or ttp No cyanosis or clubbing, Normal movement of all extremities 8.Skin: Warm, Dry. No rashes or lesions. 9.Neuro: registered diet technician II-XII grossly intact. Sensation grossly intact, no focal neurologic deficits. 10.Psych: (AAO) x3. Appropriate mood and affect Course Vital Signs Vital signs: Vital Signs Temperature 36.9 C 05/07/25 09:51 Pulse 76 05/07/25 09:51 Respiratory Rate 13 05/07/25 09:51 Blood Pressure 153/91 H 05/07/25 09:51 Pulse Oximetry 94 05/07/25 09:51 Temperature 36.9 C 05/07/25 10:14 Temperature Source Oral 05/07/25 10:14 Pulse 76 05/07/25 10:14 Respiratory Rate 13 05/07/25 10:14 Respiratory Effort Short of Breath 05/07/25 10:15 Blood Pressure 153/91 H 05/07/25 10:14 Blood Pressure Position Sitting 05/07/25 10:14 Pulse Oximetry 94 05/07/25 10:14 Oxygen Delivery Method Room Air 05/07/25 10:14 Oxygen Flow Rate 0 05/07/25 10:14 Pain Level 5 05/07/25 10:14 Lab/Test Results Lab/Test Results: Laboratory Tests Range/Units 05/07/25 05/07/25 10:12 10:34 WBC (4.4-10.8) 10^3/uL 7.22 RBC (3.93-5.22) 10^6/uL 4.97 Hgb (11.2-15.7) g/dL 15.1 Hct (36.0-46.0) % 45.4 MCV (80-95) fL 91 MCH (27.0-33.0) pg 30.4 MCHC (32.0-36.0) % 33.3 RDW (11.7-14.6) % 13.1 Plt Count (130-400) 10^3/uL 237 MPV (8.0-11.0) fL 11.0 Immature Gran % % 0.3 Neutrophils % % 63.4 Lymphocytes % % 28.4 Monocytes % % 6.5 Eosinophils % % 0.7 Basophils % % 0.7 Nucleated RBC % (0.0-0.3) % 0.0 Absolute Neutrophils (1.2-6.7) 10^3/uL 4.58 Absolute Lymphocytes (1.2-3.4) 10^3/uL 2.05 Absolute Monocytes (0.1-0.8) 10^3/uL 0.47 Absolute Eosinophils (0.0-0.7) 10^3/uL 0.05 Absolute Basophils (0.0-0.2) 10^3/uL 0.05 PT Cancelled 10.7 INR Cancelled 1.1 APTT Cancelled 25.9 Sodium (136-145) mmol/L 141 Potassium (3.5-5.1) mmol/L 3.5 Chloride (98-107) mmol/L 104 Carbon Dioxide (21.0-32.0) mmol/L 28.5 Anion Gap (3-11) mmol/L 8.5 BUN (7-18) mg/dL 10 Creatinine (0.55-1.02) mg/dL 0.7 Est GFR (CKD-EPI 2020) (mL/min/1.73m2) 82.62 Glucose (74-106) mg/dL 122 H Calcium (8.5-10.1) mg/dL 9.4 Total Bilirubin (0.2-1.0) mg/dL 0.5 AST (15-37) U/L 17 ALT (14-59) U/L 28 Alkaline Phosphatase (46-116) U/L 37 L Troponin I (<or=51) ng/L 8 Total Protein (6.4-8.2) g/dL 7.0 Albumin (3.4-5.0) g/dL 3.5 Lipase (<78) U/L 17 Medical Decision Making This is an 89-year-old female with a past medical history of asthma, hiatal hernia, previous SVT, osteoporosis, high cholesterol, previous Radha-Escalera syndrome, with a past surgical history of total abdominal hysterectomy and bilateral salpingo-oophorectomy, tonsillectomy and adenoidectomy, appendectomy, and hiatal hernia repair, who presents today with her nephew for evaluation of nausea without vomiting. Patient states that yesterday she became nauseous and has been persistent throughout the day. She feels like vomiting but has not. She also admits to occasional intermittent constipation. In addition to this she admits to mild difficulty breathing and shortness of breath which she states is slightly worse than her normal asthma. She admits to a cough with mild yellow sputum production. She denies any fever or chills. She denies any blood in her stool. Pain in the abdomen is in the upper abdominal region, and described as achy in nature. Worse with palpation. She has not been eating much because of the symptoms. She denies any other complaints at this time. Exam demonstrates well-appearing female, mild abdominal tenderness in the upper and mid regions. Lungs are clear, no wheezes rales or rhonchi or stridor. Differential includes pancreatitis, obstruction, less likely diverticulitis. Pneumonia or viral etiology is of concern as well for upper respiratory components. No wheezes to suggest acute asthma exacerbation. Will get imaging of the chest and abdomen, we will treat the patient's pain and nausea, will evaluate for cardiac etiology monitor closely and reassess. 12 AM Laboratory workup has returned, no white count bandemia or left shift. Electrolytes are all normal. Troponins are normal. Lipase is normal. EKG stable. After antiemetics patient is feeling much better. Symptoms have resolved. CT imaging shows evidence of a right inguinal hernia without evidence of obstruction. Very mild fat containing umbilical hernia, notably enlarged thyroid which appears chronic. She has no stridor difficulty breathing or difficulty swallowing. I did discuss the patient's thyroid with the patient, no evidence of an acute emergent component. There certainly seems to be a notable chronic component. With no evidence of obstruction, and near complete resolution of her symptomatology, I do not see an indication for further workup or assessment. Patient feels well. Will recommend Colace as needed for constipation. Will give a small bottle of Zofran for home use for nausea. Discussed all of this with the patient's family member at bedside. Patient will be discharged. I have extensively reviewed the treatment plan and discharge instructions with the patient and their family. I have addressed all patient concerns at this time. The patient and family was made aware of what symptoms to monitor for that would warrant a return to the emergency department. Discussed the plan with the patient and family, they demonstrate verbal understanding and agreement with our assessment and plan at this time. The documentation in this chart was dictated using [employer] dictation software. Please excuse any dictation errors. FINDINGS: CHEST: LUNGS: No infiltrates nor pleural effusions. Calcified granulomas in the right lung noted.. MEDIASTINUM: There is gross enlargement of both lobes of the thyroid gland which resultant decreased diameter of the trachea but no shift of the trachea. The enlarged thyroid lobes extend both inferiorly and posteriorly into the mediastinum, insert cleanly proximal esophagus. Both lobes are heterogeneous and appear to contain nodules. There is no hilar adenopathy nor subcarinal adenopathy. No adenopathy in the anterior mediastinal fat nor in the aortopulmonic window CARDIAC: Heart size upper normal. No pericardial effusion.Caliber of thoracic aorta is within normal limits and there is no evidence of dissection. Coronary artery calcifications noted. OSSEOUS: No significant osseous lesions.No fractures.. ABDOMEN: There is no ascites. There is evidence of prior surgery in the proximal stomach-GE junction region. There is no prominent hiatal hernia. Stomach is not distended. LIVER: There are no focal hepatic lesions nor dilatation of intrahepatic ducts. GALLBLADDER/BILIARY: No obvious gallbladder pathology. CBD is not dilated. PANCREAS: No evidence of pancreatic mass nor dilatation of the pancreatic duct. SPLEEN: Spleen is not enlarged. There are no intrasplenic lesions. Splenic and portal veins are patent. ADRENALS: There are no significant adrenal masses. KIDNEYS: Right kidney unremarkable. There is a E solitary benign cyst in the lateral cortex of the left kidney which measures 4.7 x 3.7 cm. This benign cyst does not require further workup.. No calculi nor hydronephrosis. No solid renal masses. Ureters are not dilated and there is no obvious abnormality in the urinary bladder ABDOMINAL AORTA: The abdominal aorta is calcified but not enlarged LYMPH NODES: There is no retroperitoneal nor paraaortic adenopathy. ABDOMINAL WALL/GI: There is a right inguinal hernia which contains small bowel loops, with these loops extending 7 cm down the inguinal canal from the internal inguinal ring. These involve bowel loops do not appear obviously edematous and there is no fluid in the hernia sac. There is no transition point evident. No bowel obstruction, free air, nor abscess. There is also a small fat only containing umbilical hernia. PELVIS: LYMPH NODES: There is no intrapelvic nor inguinal adenopathy. GI: The appendix is not identified. No obvious evidence of acute appendicitis.There is scattered diverticuli in the colon but no evidence of acute diverticulitis. URINARY BLADDER: Mildly distended. Otherwise unremarkable. REPRODUCTIVE: Uterus surgically absent. No abnormal adnexal masses. No free fluid. OSSEOUS: No fractures. No significant osseous lesions. Some disc space narrowing at L3-4 level noted. IMPRESSION: 1. There is a right inguinal hernia with small bowel loop extending 7 cm down the hernia sac towards the scrotum. However, there does not appear to be a transition point in bowel diameter at this level. No obvious bowel obstruction. There is no abnormal fluid in the hernia sac nor elsewhere in the abdomen. 2. There is also a small fat only containing anterior abdominal wall umbilical hernia. 3. Grossly enlarged thyroid gland which compresses the trachea. The enlarged and heterogeneous thyroid lobes extend both caudally into the mediastinum and posteriorly to the level of the esophagus. There 4. There is evidence of previous surgery in the region of the proximal stomach possibly prior fundoplication. Report called by myself to ER physician 05/07/2025 at 12:02 pm Quality:SDOH Health Related Social Needs: Health related social needs lonely/isolated PFSH All Active Problems (Updated 05/07/25 @ 16:10 by Victoriano Lawler DO) Enlarged thyroid (Acute) Nausea (Acute) Cough (Acute) Impacted cerumen, bilateral (Acute) Closed fracture of left proximal humerus (Acute 10/09/23) Impacted cerumen, right ear (Acute) Foot pain, bilateral (Acute) Impairment of speech discrimination (Acute) Abdominal pain (Acute) Discharge planning issues (Acute) DVT prophylaxis (Acute) Asthma (Chronic) GERD (gastroesophageal reflux disease) (Chronic) Elevated troponin (Acute) Palpitations (Acute) Sensorineural hearing loss of both ears (Acute) Medical History H/O Radha-Escalera syndrome Bee sting allergy Environmental allergies Osteoporosis Hyperlipidemia Hiatal hernia Surgical History History of repair of hiatal hernia S/P colonoscopy H/O esophagogastroduodenoscopy S/P total abdominal hysterectomy and bilateral salpingo-oophorectomy S/P tonsillectomy and adenoidectomy History of appendectomy Family History Brother Heart disease Diabetes Self No problems noted. Sister Stroke Paternal Aunt No problems noted. Paternal Grandfather Cancer stomach cancer Maternal Grandfather Cancer throat cancer (smoker) Social History Smoking/Tobacco Use Status: Never Smoking risk assessment performed?: Yes Alcohol Intake: never Drug use: Never Substance use type: does not use Housing: assisted living facility Pets and animals: Yes Pets and animals: dog(s) What type of physical activity do you participate in: walking Duration: 45-60 minutes/day Frequency: 5-6 times per week Do you feel safe at home: Yes Do you feel safe in your relationship?: Yes
[2025-05-07] MEDS: Ondansetron O.D.T. 4 MG TABEF, 3 TABS/BTL PO (12:32)
== END 2025-05-07 12:31 | disposition home or self-care (01) ==
PROVIDERS: Emergency Provider Student in an Organized Health Care Education/Training Program; PCP Family Medicine
DX: R11.0 Nausea (principal); E04.9 Nontoxic goiter, unspecified; Z79.82 Long term (current) use of aspirin
CPT/HCPCS: 36415; 74177; 80053; 83690; 87637; 93005; 96365; 96366; 99285; 71260; 84484; 85025; 85610; 85730; 93010; J0131; J2405; J3490

== ENCOUNTER 2025-05-09 12:57 | Observation (INO) | payer MEDICARE, MEDICAID, SELFPAY ==
[2025-05-09] VITALS (25 sets, daily range): BP systolic 123–184; BP diastolic 68–152; PULSE 45–91; RESP 15–22; TEMP 36.5–36.7; O2SAT 90–96
--- NOTE | 2025-05-09 13:17 | W.ED.GENAD ---
Discharge Plan Disposition Patient Disposition: Admit to [facility] Condition: Good Discharge Details Clinical Impression: C. difficile colitis Primary Care Provider: Urvashi Browne ED Provider: Victoriano Lawler Home Meds and New Rx's Prescriptions: No Action cholecalciferol (vitamin D3) 50 mcg (2,000 unit) tablet 50 mcg PO DAILY Metamucil 3.4 gram/5.4 gram powder 1 tbsp PO DAILY Rx Instructions: mix into at least 8 oz of water or juice before administering docusate sodium [Colace] 100 mg capsule 100 mg PO DAILY fluticasone propion-salmeterol [Wixela Inhub] 100-50 mcg/dose blister with device 1 inh inhalation BID acetaminophen 325 mg capsule 325 mg PO BID PRN carboxymethylcellulose sodium [Refresh Tears] 0.5 % drops 1 drp ophthalmic (eye) BID diltiazem HCl 120 mg capsule,extended release 24 hr 120 mg PO DAILY Qty: 90 3RF albuterol sulfate [ProAir HFA] 8.5 GM HFA aerosol inhaler 2 puff Inhalation PRN PRN pravastatin 40 mg Tablet 40 mg PO QPM Qty: 30 0RF sucralfate 1 gram Tablet 1 g PO AC & HS Qty: 120 0RF aspirin 81 mg Tablet,Delayed Release (Dr/Ec) 81 mg PO DAILY Qty: 0 0RF pantoprazole [Protonix] 20 mg Tablet,Delayed Release (Dr/Ec) 20 mg PO DAILY@0730 Qty: 30 0RF cetirizine [Zyrtec] 10 mg tablet,chewable 5 mg PO DAILY PRN (Reason: allergy symptoms) Qty: 10 0RF amoxicillin-pot clavulanate 875-125 mg tablet 1 tab PO BID Patient Comments: TAKE ONE TABLET BY MOUTH EVERY 12 HOURS FOR 7 DAYS FOR URINE INFECTION donepezil 5 mg tablet 5 mg PO DAILY Patient Comments: TAKE ONE TABLET BY MOUTH EVERY MORNING FOR MEMORY HPI General Date/Time Provider Initiated Documentation: 05/09/25 12:59. HPI Narrative: This is an 89-year-old female with a past medical history of asthma, hiatal hernia, previous SVT, osteoporosis, high cholesterol, previous Radha-Escalera syndrome, with a past surgical history of total abdominal hysterectomy and bilateral salpingo-oophorectomy, tonsillectomy and adenoidectomy, appendectomy, and hiatal hernia repair, who presents today for abdominal pain. Patient was seen and assessed here 2 days ago. At that time she had symptoms of nausea without vomiting, and some diarrhea. She had a workup which showed no significant laboratory abnormalities, troponins and EKG were normal. After antiemetics she felt much better. She was gently rehydrated. CT scan showed right inguinal hernia, but no signs of obstruction or colitis. No other acute abnormalities. She went home and took the Zofran that was prescribed. This did improve her nausea however today it no longer helped. She is continue to have multiple episodes of loose stool, and her nausea persist. She has no associated vomiting. She denies blood in her stool. No recent antibiotics. No other complaints at this time. She presents today because of the persistence of her symptoms. Related Data Home Medications ?Medication ?Instructions ?Recorded ?Confirmed albuterol sulfate 90 mcg/actuation 2 puff inhalation PRN PRN 11/20/14 05/09/25 aerosol inhaler (ProAir HFA) aspirin 81 mg tablet,delayed 81 mg PO DAILY #0 tabs 04/20/20 05/09/25 release pantoprazole 20 mg tablet,delayed 20 mg PO DAILY@0730 #30 tabs 04/20/20 05/09/25 release (Protonix) pravastatin 40 mg tablet 40 mg PO QPM #30 tabs 04/20/20 05/09/25 sucralfate 1 gram tablet 1 g PO AC & HS #120 tabs 04/20/20 05/09/25 cholecalciferol (vitamin D3) 50 50 mcg PO DAILY 06/19/20 05/09/25 mcg (2,000 unit) tablet docusate sodium 100 mg capsule 100 mg PO DAILY 06/19/20 05/09/25 (Colace) psyllium husk 3.4 gram/5.4 gram 1 tbsp PO DAILY 06/19/20 05/09/25 oral powder (Metamucil) fluticasone 100 mcg-salmeterol 50 1 inh inhalation BID 11/03/20 05/09/25 mcg/dose blistr powdr for inhalation (Wixela Inhub) diltiazem HCl 120 mg capsule,24 120 mg PO DAILY #90 caps 05/13/22 05/09/25 hr,extended release acetaminophen 325 mg capsule 325 mg PO BID PRN 11/22/23 05/09/25 carboxymethylcellulose sodium 0.5 1 drp ophthalmic (eye) BID 11/22/23 05/09/25 % eye drops (Refresh Tears) cetirizine 10 mg chewable tablet 5 mg (1/2 x 10 mg) PO DAILY PRN 11/25/24 05/09/25 (Zyrtec) allergy symptoms #10 tabs amoxicillin 875 mg-potassium 1 tab PO BID 04/25/25 05/09/25 clavulanate 125 mg tablet donepezil 5 mg tablet 5 mg PO DAILY 04/25/25 05/09/25 Previous Rx's ?Medication ?Instructions ?Recorded aspirin 81 mg tablet,delayed 81 mg PO DAILY #0 tabs 04/20/20 release pantoprazole 20 mg tablet,delayed 20 mg PO DAILY@0730 #30 tabs 04/20/20 release (Protonix) pravastatin 40 mg tablet 40 mg PO QPM #30 tabs 04/20/20 sucralfate 1 gram tablet 1 g PO AC & HS #120 tabs 04/20/20 diltiazem HCl 120 mg capsule,24 120 mg PO DAILY #90 caps 05/13/22 hr,extended release cetirizine 10 mg chewable tablet 5 mg (1/2 x 10 mg) PO DAILY PRN 11/25/24 (Zyrtec) allergy symptoms #10 tabs Allergies Allergy/AdvReac Type Severity Reaction Status Date / Time hornet venom Allergy Severe Anaphylaxsi Verified 05/09/25 13:01 s Sulfa (Sulfonamide Allergy Severe Swelling/Ed Verified 05/09/25 13:01 Antibiotics) cesia codeine AdvReac Intermediate Nausea Verified 05/09/25 13:01 meperidine HCl (From Demerol) AdvReac Intermediate Nausea Verified 05/09/25 13:01 General Stated Complaint: Abd Prob ROBERTO: 3 Exam Narrative Exam Narrative: 1.Const: Well-nourished, Well-developed, appearing stated age 2.Eyes: PERRL, no conjunctival injection, and symmetrical lids. 3.ENT: Atraumatic external nose and ears. Moist MM. Neck: Symmetric, trachea midline, No thyromegaly. 4.CVS: +S1/S2, Peripheral pulses 2+ and equal in all extremities. Brisk capillary refill in all extremities. 5.RESP: Unlabored respiratory effort. Clear to auscultation bilaterally. No wheezes rales or rhonchi 6.GI: Soft, nondistended. Mild achiness throughout the abdomen. 7.MSK: Normocephalic/Atraumatic, Extremities w/o deformity or ttp No cyanosis or clubbing, Normal movement of all extremities 8.Skin: Warm, Dry. No rashes or lesions. 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 Sensation grossly intact, no focal neurologic deficits. 10.Psych: (AAO) x3. Appropriate mood and affect Course Vital Signs Vital signs: Vital Signs Temperature 36.5 C 05/09/25 12:58 Pulse 54 L 05/09/25 12:58 Respiratory Rate 18 05/09/25 12:58 Blood Pressure 165/70 H 05/09/25 12:58 Pulse Oximetry 90 L 05/09/25 12:58 Temperature 36.5 C 05/09/25 13:02 Pulse 54 L 05/09/25 13:02 Respiratory Rate 18 05/09/25 13:02 Blood Pressure 165/70 H 05/09/25 13:02 Pulse Oximetry 90 L 05/09/25 13:02 Medical Decision Making This is an 89-year-old female with a past medical history of asthma, hiatal hernia, previous SVT, osteoporosis, high cholesterol, previous Radha-Escalera syndrome, with a past surgical history of total abdominal hysterectomy and bilateral salpingo-oophorectomy, tonsillectomy and adenoidectomy, appendectomy, and hiatal hernia repair, who presents today for abdominal pain. Patient was seen and assessed here 2 days ago. At that time she had symptoms of nausea without vomiting, and some diarrhea. She had a workup which showed no significant laboratory abnormalities, troponins and EKG were normal. After antiemetics she felt much better. She was gently rehydrated. CT scan showed right inguinal hernia, but no signs of obstruction or colitis. No other acute abnormalities. She went home and took the Zofran that was prescribed. This did improve her nausea however today it no longer helped. She is continue to have multiple episodes of loose stool, and her nausea persist. She has no associated vomiting. She denies blood in her stool. No recent antibiotics. No other complaints at this time. She presents today because of the persistence of her symptoms. Exam demonstrates mildly tender abdomen throughout. No guarding or rebound low. Vital signs stable with no fever or tachycardia. Oxygenation at around 90%. No hypoxemia though. Differential with the patient's persistent stooling includes C. difficile, or infectious diarrhea. Previously she had constipation, but now on this visit it is transition to the diarrhea. She has not been on any antibiotics recently. We will test for C. difficile, get repeat imaging to make sure there is no new evidence of colitis. Will monitor closely and reassess. 4:14 PM Laboratory workup has returned, no white count, renal function stable. Stool culture has returned and shows evidence of C. difficile. CT scan now shows evidence of mild colitis, which is a change compared to prior CT imaging. This appears to correlate with the patient's diarrhea, and abdominal tenderness. With her age, her recurrent multiple episodes of diarrhea, continued pain and revisit, I do feel that she would benefit from 24 to 48-hour observation versus admission. Discussed the case with the hospitalist Dr. Judge, he agrees with the assessment and plan. I have extensively reviewed the treatment plan with the patient. I have addressed all patient concerns at this time. I have also discussed the plan with the admitting physician and they agree with the current assessment and plan and have agreed to assume responsibility for the patient. All parties demonstrate verbal understanding and agreement with our assessment and plan at this time. The documentation in this chart was dictated using [employer] dictation software. Please excuse any dictation errors. Additionally Dificid medication has been ordered and will be administered here for first dose. FINDINGS: VISUALIZED LUNG BASES: Increased lung base markings again noted. No pleural effusions.. ABDOMEN: There is no ascites. Again noted is evidence of previous surgery in the proximal stomach, possibly fundoplication. LIVER: There are no focal hepatic lesions evident. No dilated intrahepatic ducts. GALLBLADDER/BILIARY: There are subtle tiny mural place densities in the body and fundus of the gallbladder which may be tiny calculi or polyps. There is no gallbladder wall edema. CBD is not dilated. PANCREAS: No evidence of pancreatic mass nor dilatation of the pancreatic duct. SPLEEN: Spleen is not enlarged. No obvious intrasplenic lesions. Splenic and portal veins are patent. ADRENALS: There are no significant adrenal masses. KIDNEYS:Right kidney unremarkable. There is again noted a benign cyst in the lateral cortex of the left kidney measuring 4.7 x 3.7, not requiring further workup. There are no solid renal masses. No calculi nor hydronephrosis.. ABDOMINAL AORTA: Calcified but not enlarged. Iliac arteries also calcified but not enlarged. LYMPH NODES:There is no retroperitoneal nor paraaortic adenopathy. ABDOMINAL WALL/GI: There is an anterior abdominal wall midline umbilical hernia noted. On the present study there is a small bowel loop at the neck of the hernia. This does not appear edematous nor in trapped and there is no transition point at this level. Also again noted is a right inguinal hernia with a non edematous appearing small bowel loops again noted descending down the hernia sac for a distance of 7 cm, similar to previous. There is no bowel obstruction at this level. The colon is predominately collapsed. There diverticuli again noted throughout the sigmoid. The largest diverticuli is in the sigmoid just above the urinary bladder but this does not appear inflamed. The appearance of the collapsed colon may imply an element of colitis. This is most evident in the sigmoid. PELVIS: GI: The appendix is again not identified and may be surgically absent. LYMPH NODES: There is no intrapelvic nor inguinal adenopathy. REPRODUCTIVE: Uterus is again noted be surgically absent. There are no abnormal adnexal masses. No free fluid in the pelvis. URINARY BLADDER: No calculi nor obvious masses evident. Pelvic ureters are not dilated. OSSEOUS: No fractures and no significant osseous lesions. IMPRESSION: 1. Compared to the recent CT scan of 05/07/2025 there is again noted evidence of previous proximal gastric surgery, possible prior fundoplication. 2. Right inguinal hernia again noted which again contains a small bowel loop descending approximately 7 cm down the inguinal canal but not appearing edematous nor obstructed. 3. Midline umbilical hernia with a small bowel loop coming close to the neck of this hernia but not truly within hernia sac and there is no bowel wall edema nor transition point at this level. 4. Colon diverticulosis again noted. No obvious acute diverticulitis. The colon is predominately collapsed. However, there appears to be subtle evidence of a colitis pattern here. Correlation with clinical findings recommended Report called by myself to ER physician 05/09/2025 at 4 p.m. Quality:SDOH Health Related Social Needs: Health related social needs lonely/isolated PFSH All Active Problems (Updated 05/09/25 @ 16:16 by Victoriano Lawler DO) C. difficile colitis (Acute) Enlarged thyroid (Acute) Nausea (Acute) Cough (Acute) Impacted cerumen, bilateral (Acute) Closed fracture of left proximal humerus (Acute 10/09/23) Impacted cerumen, right ear (Acute) Foot pain, bilateral (Acute) Impairment of speech discrimination (Acute) Abdominal pain (Acute) Discharge planning issues (Acute) DVT prophylaxis (Acute) Asthma (Chronic) GERD (gastroesophageal reflux disease) (Chronic) Elevated troponin (Acute) Palpitations (Acute) Sensorineural hearing loss of both ears (Acute) Medical History H/O Radha-Escalera syndrome Bee sting allergy Environmental allergies Osteoporosis Hyperlipidemia Hiatal hernia Surgical History History of repair of hiatal hernia S/P colonoscopy H/O esophagogastroduodenoscopy S/P total abdominal hysterectomy and bilateral salpingo-oophorectomy S/P tonsillectomy and adenoidectomy History of appendectomy Family History Brother Heart disease Diabetes Self No problems noted. Sister Stroke Paternal Aunt No problems noted. Paternal Grandfather Cancer stomach cancer Maternal Grandfather Cancer throat cancer (smoker) Social History Smoking/Tobacco Use Status: Never Smoking risk assessment performed?: Yes Alcohol Intake: never Drug use: Never Substance use type: does not use Housing: assisted living facility Pets and animals: Yes Pets and animals: dog(s) What type of physical activity do you participate in: walking Duration: 45-60 minutes/day Frequency: 5-6 times per week Do you feel safe at home: Yes Do you feel safe in your relationship?: Yes
[2025-05-09] MEDS: Ondansetron 4 MG/2 ML VIAL IVP (13:47)
[2025-05-09] MEDS: Dicyclomine 10 MG CAP PO (13:48)
[2025-05-09 14:21] LABS: Abs Immature Grans 0.03 10^3/uL (0.0-0.06); HCT 45.4 % (36.0-46.0); HGB 14.6 g/dL (11.2-15.7); Immature Grans % 0.3 %; MCH 29.8 pg (27.0-33.0); MCHC 32.2 % (32.0-36.0); MCV 93 fL (80-95); MPV 11.2 fL (8.0-11.0); Platelet Count 195 10^3/uL (130-400); RBC 4.90 10^6/uL (3.93-5.22); RDW 13.1 % (11.7-14.6); RDW-SD 44.9 fL; WBC 9.19 10^3/uL (4.4-10.8)
[2025-05-09 14:34] LABS: ALT 22 U/L (14-59); AST 16 U/L (15-37); Albumin 3.4 g/dL (3.4-5.0); Alkaline Phosphatase 37 U/L (46-116); Anion Gap 6.3 mmol/L (3-11); BUN 9 mg/dL (7-18); Bilirubin, Total 0.4 mg/dL (0.2-1.0); CO2 30.7 mmol/L (21.0-32.0); Calcium 9.4 mg/dL (8.5-10.1); Chloride 103 mmol/L (98-107); Estimated GFR 82.62 (mL/min/1.73m2); Glucose 109 mg/dL (74-106); Lipase 33 U/L (<78); Potassium 4.3 mmol/L (3.5-5.1); Sodium 140 mmol/L (136-145); Total Protein 6.7 g/dL (6.4-8.2)
--- NOTE | 2025-05-09 14:45 | DI.CT_ITS ---
Exam(s) CT ABDOMEN PELVIS W EXAM: CT ABDOMEN PELVIS W CLINICAL HISTORY: recurrent abdominal pain, diarrhea. TECHNIQUE: Imaging Protocol: Axial computed tomography images with coronal and sagittal reformatted images were created and reviewed CONTRAST MATERIAL: Intravenous: Omnipaque-350 75cc Oral: None COMPARISON: CT CT CHEST/ABD/PEL W from 05/07/2025 FINDINGS: VISUALIZED LUNG BASES: Increased lung base markings again noted. No pleural effusions.. ABDOMEN: There is no ascites. Again noted is evidence of previous surgery in the proximal stomach, possibly fundoplication. LIVER: There are no focal hepatic lesions evident. No dilated intrahepatic ducts. GALLBLADDER/BILIARY: There are subtle tiny mural place densities in the body and fundus of the gallbladder which may be tiny calculi or polyps. There is no gallbladder wall edema. CBD is not dilated. PANCREAS: No evidence of pancreatic mass nor dilatation of the pancreatic duct. SPLEEN: Spleen is not enlarged. No obvious intrasplenic lesions. Splenic and portal veins are patent. ADRENALS: There are no significant adrenal masses. KIDNEYS:Right kidney unremarkable. There is again noted a benign cyst in the lateral cortex of the left kidney measuring 4.7 x 3.7, not requiring further workup. There are no solid renal masses. No calculi nor hydronephrosis.. ABDOMINAL AORTA: Calcified but not enlarged. Iliac arteries also calcified but not enlarged. LYMPH NODES:There is no retroperitoneal nor paraaortic adenopathy. ABDOMINAL WALL/GI: There is an anterior abdominal wall midline umbilical hernia noted. On the present study there is a small bowel loop at the neck of the hernia. This does not appear edematous nor in trapped and there is no transition point at this level. Also again noted is a right inguinal hernia with a non edematous appearing small bowel loops again noted descending down the hernia sac for a distance of 7 cm, similar to previous. There is no bowel obstruction at this level. The colon is predominately collapsed. There diverticuli again noted throughout the sigmoid. The largest diverticuli is in the sigmoid just above the urinary bladder but this does not appear inflamed. The appearance of the collapsed colon may imply an element of colitis. This is most evident in the sigmoid. PELVIS: GI: The appendix is again not identified and may be surgically absent. LYMPH NODES: There is no intrapelvic nor inguinal adenopathy. REPRODUCTIVE: Uterus is again noted be surgically absent. There are no abnormal adnexal masses. No free fluid in the pelvis. URINARY BLADDER: No calculi nor obvious masses evident. Pelvic ureters are not dilated. OSSEOUS: No fractures and no significant osseous lesions. IMPRESSION: 1. Compared to the recent CT scan of 05/07/2025 there is again noted evidence of previous proximal gastric surgery, possible prior fundoplication. 2. Right inguinal hernia again noted which again contains a small bowel loop descending approximately 7 cm down the inguinal canal but not appearing edematous nor obstructed. 3. Midline umbilical hernia with a small bowel loop coming close to the neck of this hernia but not truly within hernia sac and there is no bowel wall edema nor transition point at this level. 4. Colon diverticulosis again noted. No obvious acute diverticulitis. The colon is predominately collapsed. However, there appears to be subtle evidence of a colitis pattern here. Correlation with clinical findings recommended Report called by myself to ER physician 05/09/2025 at 4 p.m. RADIATION DOSE DELIVERED: 332.77mGy.cm Total DLP DATA REPOSITORY: All CT scans at this facility are submitted to the National Radiology Data Registry (NRDR) Dose Index Registry (DIR) with the [employer] ([employer]). RADIATION OPTIMIZATION: All CT scans at this facility use at least one of these dose optimization techniques: automated exposure control; mA and/or kV adjustment per patient size (includes targeted exams where dose is matched to clinical indication); or iterative reconstruction.
[2025-05-09 14:53] LABS: EPI 027-NAP1-B1 PRESUMPTIVE NEGATIVE
[2025-05-09] MEDS: Normal Saline Flush 10 ML SYR IVP (15:14)
[2025-05-09] MEDS: Normal Saline - Diluent 50 ML VIAL IJ (15:14)
[2025-05-09 15:15] LABS: Glucose Negative (Negative)
[2025-05-09] MEDS: Omnipaque 350 MG/ML 100 ML BTL IJ (15:29)
[2025-05-09] MEDS: Fidaxomicin 200 MG TAB PO ×2 (16:36→22:48)
--- NOTE | 2025-05-09 18:24 | W.PM.HP.N ---
Date of service: 05/09/25 Time of Service: 18:25 Assessment and Plan Assessment and plan (1) C. difficile colitis: Status: Acute Assessment and plan: As per HPI Continue treatment with fidaxomicin Vancomycin has not been tried Avoid anticholinergics or medicines that could slow or stop bowel movements at this time Mentioned passing a dark cord in her stool - thought that is was from hernia repair -Fecal bacterial pathogen and parasite screen pending (2) Nausea: Status: Acute Assessment and plan: As needed antiemetics (3) Abdominal pain: Status: Acute Assessment and plan: As needed acetaminophen (4) Asthma: Status: Chronic Assessment and plan: Continue home med regimen (5) GERD (gastroesophageal reflux disease): Status: Chronic Assessment and plan: On home dose PPI consider famotidine (6) Hyperlipidemia: Assessment and plan: On home dose statin (7) SVT (supraventricular tachycardia): Status: Resolved Assessment and plan: On home dose CCB (8) Dementia: Status: Chronic Assessment and plan: No official diagnosis of Alzheimer's dementia confirmed but patient will continue home dose donepezil (9) On deep vein thrombosis (DVT) prophylaxis: Status: Acute Assessment and plan: On local with heparin With Dr. Garcia History of Present Illness History of Present Illness Chief Complaint: diarrhea Narrative: This 89-year-old female patient who lives alone with her dog and with with a past medical history of asthma, hiatal hernia, previous SVT, osteoporosis, high cholesterol, previous Radha-Escalera syndrome, with a past surgical history of total abdominal hysterectomy and bilateral salpingo-oophorectomy, tonsillectomy and adenoidectomy, appendectomy, and hiatal hernia repair, who presents today to the ED for evaluation of abdominal pain. nausea, diarrhea. She was seen in the ED on 05/07 for similar symptoms and sent home after zofran IV hydration with resolution of nausea in the ED, no furhter relief from zofran today. Work-up in the Ed was positive for CT scan showing new evidence of mild colitis, with stool culture has returned and shows evidence of C. difficile; blood work is othwer bowie unremarkable. The patient was admitted to observation to the medical surgical floor by the hospitalist service for further treatment and management. Augmentin order form 04/25/25 on patient's medicines list, but she is unable to confirm and mentioned that she is forgetful when it comes to her medicines. The patient declined CPR and intubation confirmed , changed to DNR/ DNI. The patient reported lightheadedness, chills, no fever, no chest pain, nausea without vomiting, diarrhea, reports no dysuria, reports right ankle swelling and tenderness. . Review of Systems All systems reviewed & are unremarkable except as noted in HPI and below PFSH All Active Problems (Updated 05/09/25 @ 19:15 by Malini Nguyen APRN) Dementia (Chronic) On deep vein thrombosis (DVT) prophylaxis (Acute) C. difficile colitis (Acute) Enlarged thyroid (Acute) Nausea (Acute) Cough (Acute) Impacted cerumen, bilateral (Acute) Closed fracture of left proximal humerus (Acute 10/09/23) Impacted cerumen, right ear (Acute) Foot pain, bilateral (Acute) Impairment of speech discrimination (Acute) Abdominal pain (Acute) Discharge planning issues (Acute) DVT prophylaxis (Acute) Asthma (Chronic) GERD (gastroesophageal reflux disease) (Chronic) Elevated troponin (Acute) Palpitations (Acute) Sensorineural hearing loss of both ears (Acute) Medical History H/O Radha-Escalera syndrome Bee sting allergy Environmental allergies Osteoporosis Hyperlipidemia Hiatal hernia Surgical History History of repair of hiatal hernia S/P colonoscopy H/O esophagogastroduodenoscopy S/P total abdominal hysterectomy and bilateral salpingo-oophorectomy S/P tonsillectomy and adenoidectomy History of appendectomy Family History Brother Heart disease Diabetes Self No problems noted. Sister Stroke Paternal Aunt No problems noted. Paternal Grandfather Cancer stomach cancer Maternal Grandfather Cancer throat cancer (smoker) Social History Smoking/Tobacco Use Status: Never Smoking risk assessment performed?: Yes Alcohol Intake: never Drug use: Never Substance use type: does not use Housing: assisted living facility Pets and animals: Yes Pets and animals: dog(s) What type of physical activity do you participate in: walking Duration: 45-60 minutes/day Frequency: 5-6 times per week Do you feel safe at home: Yes Do you feel safe in your relationship?: Yes Meds Allergies and Home Medications Allergies Allergy/AdvReac Type Severity Reaction Status Date / Time hornet venom Allergy Severe Anaphylaxsi Verified 05/09/25 13:01 s Sulfa (Sulfonamide Allergy Severe Swelling/Ed Verified 05/09/25 13:01 Antibiotics) cesia codeine AdvReac Intermediate Nausea Verified 05/09/25 13:01 meperidine HCl (From Demerol) AdvReac Intermediate Nausea Verified 05/09/25 13:01 Home Medications ?Medication ?Instructions ?Recorded ?Confirmed ?Type albuterol sulfate 90 mcg/actuation 2 puff inhalation PRN PRN 11/20/14 05/09/25 History aerosol inhaler (ProAir HFA) aspirin 81 mg tablet,delayed 81 mg PO DAILY #0 tabs 04/20/20 05/09/25 Rx release pantoprazole 20 mg tablet,delayed 20 mg PO DAILY@0730 #30 tabs 04/20/20 05/09/25 Rx release (Protonix) pravastatin 40 mg tablet 40 mg PO QPM #30 tabs 04/20/20 05/09/25 Rx sucralfate 1 gram tablet 1 g PO AC & HS #120 tabs 04/20/20 05/09/25 Rx cholecalciferol (vitamin D3) 50 50 mcg PO DAILY 06/19/20 05/09/25 History mcg (2,000 unit) tablet docusate sodium 100 mg capsule 100 mg PO DAILY 06/19/20 05/09/25 History (Colace) psyllium husk 3.4 gram/5.4 gram 1 tbsp PO DAILY 06/19/20 05/09/25 History oral powder (Metamucil) fluticasone 100 mcg-salmeterol 50 1 inh inhalation BID 11/03/20 05/09/25 History mcg/dose blistr powdr for inhalation (Wixela Inhub) diltiazem HCl 120 mg capsule,24 120 mg PO DAILY #90 caps 05/13/22 05/09/25 Rx hr,extended release acetaminophen 325 mg capsule 325 mg PO BID PRN 11/22/23 05/09/25 History carboxymethylcellulose sodium 0.5 1 drp ophthalmic (eye) BID 11/22/23 05/09/25 History % eye drops (Refresh Tears) cetirizine 10 mg chewable tablet 5 mg (1/2 x 10 mg) PO DAILY PRN 11/25/24 05/09/25 Rx (Zyrtec) allergy symptoms #10 tabs amoxicillin 875 mg-potassium 1 tab PO BID 04/25/25 05/09/25 History clavulanate 125 mg tablet donepezil 5 mg tablet 5 mg PO DAILY 04/25/25 05/09/25 History Exam Narrative Exam Narrative: 89 years old female patient without acute distress, no focal neurological deficit, no JVD, nonicteric sclera, clear lungs, S1-S2, irregular no murmur, abdomen is nondistended soft mild diffuse tenderness, bowel sound also present,no CVA tenderness, minimal right ankle swelling sensitive to palpation denied trauma, moves all 4 extremities Results Labs 05/09/25 14:15 05/09/25 14:15 Labs: Laboratory Results - last 24 hr 05/09/25 05/09/25 05/09/25 13:28 14:15 14:56 WBC 9.19 RBC 4.90 Hgb 14.6 Hct 45.4 MCV 93 MCH 29.8 MCHC 32.2 RDW 13.1 Plt Count 195 MPV 11.2 H Immature Gran % 0.3 Neutrophils % 69.3 Lymphocytes % 22.1 Monocytes % 6.7 Eosinophils % 1.1 Basophils % 0.5 Nucleated RBC % 0.0 Absolute Neutrophils 6.36 Absolute Lymphocytes 2.03 Absolute Monocytes 0.62 Absolute Eosinophils 0.10 Absolute Basophils 0.05 Sodium 140 Potassium 4.3 Chloride 103 Carbon Dioxide 30.7 Anion Gap 6.3 BUN 9 Creatinine 0.7 Est GFR (CKD-EPI 2020) 82.62 Glucose 109 H Calcium 9.4 Total Bilirubin 0.4 AST 16 ALT 22 Alkaline Phosphatase 37 L Total Protein 6.7 Albumin 3.4 Lipase 33 Urine Color Yellow Urine Clarity Clear Urine pH 5.5 Ur Specific [place] <= 1.005 Urine Protein Negative Urine Ketones Negative Urine Blood Negative Urine Nitrite Negative Urine Bilirubin Negative Urine Urobilinogen 0.2 Ur Leukocyte Esterase Negative Urine Glucose Negative Stl C.difficile Tox PCR POSITIVE A Cryptosporidium/Giardia Cancelled Last Vital Signs Temp 36.7 C 05/09/25 17:33 Pulse 65 09/19/25 17:33 Resp 22 05/09/25 17:33 BP 149/69 H 05/09/25 17:33 Pulse Ox 94 05/09/25 17:33 Time Spent Time spent with Patient: >75 minutes Time was spent: preparing to see the patient(eg.review tests), obtaining and/or reviewing separately otained hiistory, ordering medications,tests, procedures, referring, communicating with other health primary care md, indepentently interpreting results, counseling the patient, care coordination and other
--- NOTE | 2025-05-09 18:55 | W.PC.ACHO ---
Registration Status: ADM LUCIAN Primary Language: Preferred Language: Belarusian ED Information & Data Chief Complaint Abd Prob 05/09/25 13:20 Triage Note Patient complaining of abd 05/09/25 12:58 pain and loose stools since this morning Medical / Surgical History (Last Reviewed 02/03/25 @ 14:21 by Micheal Landis MD) H/O Radha-Escalera syndrome Bee sting allergy Environmental allergies Osteoporosis Hyperlipidemia Hiatal hernia (Last Reviewed 02/03/25 @ 14:21 by Micheal Landis MD) History of repair of hiatal hernia S/P colonoscopy H/O esophagogastroduodenoscopy S/P total abdominal hysterectomy and bilateral salpingo-oophorectomy S/P tonsillectomy and adenoidectomy History of appendectomy Most Recent Vital Signs Temperature 36.7 C 05/09/25 17:33 Pulse 65 05/09/25 17:33 Respiratory Rate 22 05/09/25 17:33 Blood Pressure 149/69 H 05/09/25 17:33 Blood Pressure Mean 115 05/09/25 17:01 Pulse Oximetry 94 05/09/25 17:33 Oxygen Delivery Method Room Air 05/09/25 17:33 Oxygen Flow Rate 0 05/09/25 17:33 Pain Level 2 05/09/25 17:33 Allergies hornet venom Allergy (Severe, Verified 05/09/25 13:01) Anaphylaxsis Sulfa (Sulfonamide Antibiotics) Allergy (Severe, Verified 05/09/25 13:01) Swelling/Edema codeine Adverse Reaction (Intermediate, Verified 05/09/25 13:01) Nausea meperidine HCl (From Demerol) Adverse Reaction (Intermediate, Verified 05/09/25 13:01) Nausea Precautions Isolation Standard precaution 05/09/25 13:03 Active Medications Generic Name Dose Route Start Last Admin Trade Name Freq PRN Reason Stop Dose Admin Iohexol 100 ml 05/09/25 15:30 05/09/25 15:29 Omnipaque 350 Mg/Ml 100 Ml Btl IJ 06/08/25 23:59 75 ml DIRECTED JUAN Administration Sodium Chloride 0 ml 05/09/25 20:00 05/09/25 15:14 Normal Saline Flush 10 Ml Syr IVP 10 ml BID JUAN Administration Sodium Chloride 50 ml 05/09/25 15:15 05/09/25 15:14 Normal Saline - Diluent 50 Ml Vial IJ 50 ml DIRECTED JUAN Administration IV IV Catheter Type [Left Forearm Saline Lock ] IV Catheter Gauge [Left 20 Forearm] Diet Orders Category Date Time Status Regular/Normal [DIET] Nutrition 05/09/25 Dinner Active Diagnostics 05/09/25 05/09/25 05/09/25 Range/Units 14:56 14:18 14:15 WBC 9.19 (4.4-10.8) 10^3/uL RBC 4.90 (3.93-5.22) 10^6/uL Hgb 14.6 (11.2-15.7) g/dL Hct 45.4 (36.0-46.0) % MCV 93 (80-95) fL MCH 29.8 (27.0-33.0) pg MCHC 32.2 (32.0-36.0) % RDW 13.1 (11.7-14.6) % Plt Count 195 (130-400) 10^3/uL MPV 11.2 H (8.0-11.0) fL Immature Gran % 0.3 % Neutrophils % 69.3 % Lymphocytes % 22.1 % Monocytes % 6.7 % Eosinophils % 1.1 % Basophils % 0.5 % Nucleated RBC % 0.0 (0.0-0.3) % Absolute Neutrophils 6.36 (1.2-6.7) 10^3/uL Absolute Lymphocytes 2.03 (1.2-3.4) 10^3/uL Absolute Monocytes 0.62 (0.1-0.8) 10^3/uL Absolute Eosinophils 0.10 (0.0-0.7) 10^3/uL Absolute Basophils 0.05 (0.0-0.2) 10^3/uL Sodium 140 (136-145) mmol/L Potassium 4.3 (3.5-5.1) mmol/L Chloride 103 (98-107) mmol/L Carbon Dioxide 30.7 (21.0-32.0) mmol/L Anion Gap 6.3 (3-11) mmol/L BUN 9 (7-18) mg/dL Creatinine 0.7 (0.55-1.02) mg/dL Est GFR (CKD-EPI 2020) 82.62 (mL/min/1.73m2) Glucose 109 H (74-106) mg/dL Calcium 9.4 (8.5-10.1) mg/dL Total Bilirubin 0.4 (0.2-1.0) mg/dL AST 16 (15-37) U/L ALT 22 (14-59) U/L Alkaline Phosphatase 37 L (46-116) U/L Total Protein 6.7 (6.4-8.2) g/dL Albumin 3.4 (3.4-5.0) g/dL Lipase 33 (<78) U/L Urine Color Yellow (Yellow) Urine Clarity Clear (Clear) Urine pH 5.5 (5-8) Ur Specific [place] <= 1.005 (1.005-1.025) Urine Protein Negative (Neg-Trace) mg/dL Urine Ketones Negative (Negative) mg/dL Urine Blood Negative (Negative) Urine Nitrite Negative (Negative) Urine Bilirubin Negative (Negative) Urine Urobilinogen 0.2 (Up to 0.2) mg/dL Ur Leukocyte Esterase Negative (Negative) Urine Glucose Negative (Negative) mg/dL Stool Campylobacter PCR Stl C.difficile Tox PCR (Negative) Stool Salmonella PCR Stool Shigella PCR Cryptosporidium/Giardia Pending Shiga Toxin (PCR) 05/09/25 Range/Units 13:28 WBC (4.4-10.8) 10^3/uL RBC (3.93-5.22) 10^6/uL Hgb (11.2-15.7) g/dL Hct (36.0-46.0) % MCV (80-95) fL MCH (27.0-33.0) pg MCHC (32.0-36.0) % RDW (11.7-14.6) % Plt Count (130-400) 10^3/uL MPV (8.0-11.0) fL Immature Gran % % Neutrophils % % Lymphocytes % % Monocytes % % Eosinophils % % Basophils % % Nucleated RBC % (0.0-0.3) % Absolute Neutrophils (1.2-6.7) 10^3/uL Absolute Lymphocytes (1.2-3.4) 10^3/uL Absolute Monocytes (0.1-0.8) 10^3/uL Absolute Eosinophils (0.0-0.7) 10^3/uL Absolute Basophils (0.0-0.2) 10^3/uL Sodium (136-145) mmol/L Potassium (3.5-5.1) mmol/L Chloride (98-107) mmol/L Carbon Dioxide (21.0-32.0) mmol/L Anion Gap (3-11) mmol/L BUN (7-18) mg/dL Creatinine (0.55-1.02) mg/dL Est GFR (CKD-EPI 2020) (mL/min/1.73m2) Glucose (74-106) mg/dL Calcium (8.5-10.1) mg/dL Total Bilirubin (0.2-1.0) mg/dL AST (15-37) U/L ALT (14-59) U/L Alkaline Phosphatase (46-116) U/L Total Protein (6.4-8.2) g/dL Albumin (3.4-5.0) g/dL Lipase (<78) U/L Urine Color (Yellow) Urine Clarity (Clear) Urine pH (5-8) Ur Specific [place] (1.005-1.025) Urine Protein (Neg-Trace) mg/dL Urine Ketones (Negative) mg/dL Urine Blood (Negative) Urine Nitrite (Negative) Urine Bilirubin (Negative) Urine Urobilinogen (Up to 0.2) mg/dL Ur Leukocyte Esterase (Negative) Urine Glucose (Negative) mg/dL Stool Campylobacter PCR Pending Stl C.difficile Tox PCR POSITIVE A (Negative) Stool Salmonella PCR Pending Stool Shigella PCR Pending Cryptosporidium/Giardia Cancelled Shiga Toxin (PCR) Pending Intake and Output - 24 Hour Total 05/09/25 12:57 thru 05/09/25 18:44 Weight 63.4 kg Other: Urine Color Yellow Urine Appearance Clear Urine Odor Normal Comment pt voided Falls Risk Assessment History of Falls No History 05/09/25 16:38 Contributing Factors Impairments,Incontinence 05/09/25 16:38 Ambulatory Aids Uses ambulatory device 05/09/25 16:38 Tubes/Lines With any additional score 05/09/25 16:38 Gait Evaluation No gait disturbance 05/09/25 16:38 Cognition No cognitive impairment 05/09/25 16:38 Fall Total Score 41 05/09/25 16:38 Level of Risk Moderate Risk 05/09/25 16:38 v v v v v v v v v Sending and/or Receiving Nurses: Please use comment section below to note any information pertinent to the patient hand-off not included above. Information / Comments: This nurse received report, patient oriented, hard to hear, documented infection for cdiff, contact precautions, is admited to [facility] Report received from: [facility]
[2025-05-09] MEDS: Budesonide/Formoterol 80/4.5 6.9 GM 60 PUFF INH IH (20:01)
[2025-05-09] MEDS: Pravastatin 40 MG TAB PO (20:06)
[2025-05-09] MEDS: Refresh PLUS Eye Drops 0.4ml OP (20:06)
[2025-05-10] MEDS: Acetaminophen 325 MG TAB 650 MG PO (03:51)
[2025-05-10 06:55] LABS: HCT 42.7 % (36.0-46.0); HGB 13.8 g/dL (11.2-15.7); MCH 29.6 pg (27.0-33.0); MCHC 32.3 % (32.0-36.0); MCV 91 fL (80-95); MPV 11.8 fL (8.0-11.0); Platelet Count 187 10^3/uL (130-400); RBC 4.67 10^6/uL (3.93-5.22); RDW 13.2 % (11.7-14.6); RDW-SD 44.0 fL; WBC 7.16 10^3/uL (4.4-10.8)
[2025-05-10 07:14] LABS: Anion Gap 7.1 mmol/L (3-11); BUN 6 mg/dL (7-18); CO2 26.9 mmol/L (21.0-32.0); Calcium 9.1 mg/dL (8.5-10.1); Chloride 105 mmol/L (98-107); Estimated GFR 85.75 (mL/min/1.73m2); Glucose 109 mg/dL (74-106); Potassium 3.8 mmol/L (3.5-5.1); Sodium 139 mmol/L (136-145)
[2025-05-10] MEDS: dilTIAZem CD 120 MG CAPCR PO (07:38)
[2025-05-10] MEDS: Aspirin E.C. 81 MG TABEC PO (07:38)
[2025-05-10] MEDS: Refresh PLUS Eye Drops 0.4ml OP (07:38)
[2025-05-10] MEDS: Cholecalciferol (Vitamin D3) 1,000 UNIT TAB 2000 UNITS PO (07:39)
[2025-05-10] MEDS: Fidaxomicin 200 MG TAB PO (07:39)
[2025-05-10] MEDS: Normal Saline Flush 10 ML SYR IVP (07:39)
[2025-05-10] MEDS: Donepezil 5 MG TAB PO (07:39)
[2025-05-10] MEDS: Pantoprazole 20 MG TABCR PO (07:39)
[2025-05-10] MEDS: Enoxaparin 40 MG/0.4 ML SYR SC (07:39)
[2025-05-10] MEDS: Prochlorperazine 10 MG/2 ML VIAL 5 MG IVP (07:49)
[2025-05-10] MEDS: Budesonide/Formoterol 80/4.5 6.9 GM 60 PUFF INH IH (07:57)
--- NOTE | 2025-05-10 11:14 | W.PM.DS.N ---
Date of service: 05/10/25 Time of Service: 11:14 DS: Diagnosis Discharge Diagnosis (1) C. difficile colitis: Status: Acute (2) Nausea: Status: Acute (3) Abdominal pain: Status: Acute (4) Asthma: Status: Chronic (5) GERD (gastroesophageal reflux disease): Status: Chronic (6) Hyperlipidemia: (7) SVT (supraventricular tachycardia): Status: Resolved (8) Dementia: Status: Chronic Discharge Plan Disposition Patient Disposition: Home Condition: Improving Discharge Details Reason For Visit: c diff colitis Admit Date/Time: 05/09/25 16:18 Admit Provider: Lg Garcia Attending Provider: Lg Garcia Primary Care Provider: Urvashi Browne Hospital Course Hospital Course: This is an 89-year-old female patient presented to the emergency department with complaints of nausea, abdominal pain, diarrhea. She was seen in the emergency department few days prior for the same symptoms provided IV hydration and Zofran and discharged to home. She returned as her symptoms remained intractable to treatment. She underwent CT imaging that did show evidence of colitis with stool positive for C. difficile. She was admitted under hospitalist services for observation for symptom management. She completed a course of Augmentin 1 week course for UTI earlier in the month. She was started on dificid. She was eating and drinking felt her symptoms improved and is to be discharged to home. Unfortunately her pharmacy does not have the medication and supplies so she will be changed to vancomycin on discharge. She should continue to push fluids follow-up with her primary care provider or return here sooner for new or worsening symptoms. She was advised to discuss prophylactic C. difficile treatment while on antibiotics with her primary care provider for future infections. discussed with DR Nimisha Baca Medlucy and New Rx's Prescriptions: New ondansetron 4 mg tablet,disintegrating 4 mg PO Q6H PRNQty: 20 0RF vancomycin 125 mg capsule 125 mg PO QID Qty: 40 0RF Continued cholecalciferol (vitamin D3) 50 mcg (2,000 unit) tablet 50 mcg PO DAILY Metamucil 3.4 gram/5.4 gram powder 1 tbsp PO DAILY Rx Instructions: mix into at least 8 oz of water or juice before administering docusate sodium [Colace] 100 mg capsule 100 mg PO DAILY fluticasone propion-salmeterol [Wixela Inhub] 100-50 mcg/dose blister with device 1 inh inhalation BID acetaminophen 325 mg capsule 325 mg PO BID PRN carboxymethylcellulose sodium [Refresh Tears] 0.5 % drops 1 drp ophthalmic (eye) BID diltiazem HCl 120 mg capsule,extended release 24 hr 120 mg PO DAILY Qty: 90 3RF albuterol sulfate [ProAir HFA] 8.5 GM HFA aerosol inhaler 2 puff Inhalation PRN PRN pravastatin 40 mg Tablet 40 mg PO QPM Qty: 30 0RF sucralfate 1 gram Tablet 1 g PO AC & HS Qty: 120 0RF aspirin 81 mg Tablet,Delayed Release (Dr/Ec) 81 mg PO DAILY Qty: 0 0RF pantoprazole [Protonix] 20 mg Tablet,Delayed Release (Dr/Ec) 20 mg PO DAILY@0730 Qty: 30 0RF cetirizine [Zyrtec] 10 mg tablet,chewable 5 mg PO DAILY PRN (Reason: allergy symptoms) Qty: 10 0RF donepezil 5 mg tablet 5 mg PO DAILY Patient Comments: TAKE ONE TABLET BY MOUTH EVERY MORNING FOR MEMORY Discontinued amoxicillin-pot clavulanate 875-125 mg tablet 1 tab PO BID Patient Comments: TAKE ONE TABLET BY MOUTH EVERY 12 HOURS FOR 7 DAYS FOR URINE INFECTION Discharge Instructions Instructions: C. difficile infection Additional Instructions: Push fluids to stay well-hydrated drinking 6 to 8 glasses or more water daily Take antibiotics as prescribed even if you feel better Discussed prophylaxis for C. difficile infection if you require any antibiotics for another infection with the prescriber Stand Alone Forms: Nursing Discharge Form Referrals: Urvashi Browne [Primary Care Provider, Medicine] Referral Note: Please call your PCP to schedule your follow up to be within 7-10 days Activity:: Activity as Tolerated Equipment/Supplies:: No Equipment Needed Diet:: As Tolerated Discharge Orders Discharge Orders: Discharge Order (Routine); Ordered 05/10/25 Ordered By: Jennyfer Evangelista Discharge Data Discharge Date/Time-TO BE ENTERED AT DEPARTURE: 05/10/25 12:16 DS: Summary Time Spent with Patient providing and/or coordinating discharge services: Less than 30 minutes Status at Discharge Functional status at discharge: independent ambulation Overall status at discharge: patient is progressing back to baseline Mental Status: mental status grossly normal Speech and Movement: speech and movement normal Mood: congruent mood Affect: normal affect Quality:SDOH Health Related Social Needs: Health related social needs risk of homeless house/econ circumstance Health related social needs details [facility] just bought my place and they said they will fix it up next year, its okay the way it is now. shower seat might be helpful Health related social needs details: [facility] just bought my place and they said they will fix it up next year, its okay the way it is now. shower seat might be helpful Exam Narrative Exam Narrative: Well-appearing female younger than stated age no acute distress head is atraumatic eyes nonicteric noninjected oral mucosas moist neck full range of motion no JVD cardiovascular regular rate and rhythm respirations even and unlabored abdomen round soft nontender moves all extremities no peripheral edema neurologic she is awake alert oriented no focal deficits psychiatric appropriate mood and affect Psych Mental Status: mental status grossly normal Speech and Movement: speech and movement normal Mood: congruent mood Affect: normal affect DS: Data Vitals/I&O Vitals and I&O: Vital Signs Temperature 36.6 C 05/09/25 20:42 Temperature Source Temporal Artery Scan 05/09/25 20:42 Pulse 85 05/09/25 20:42 Respiratory Rate 15 05/09/25 20:42 Blood Pressure 123/68 05/09/25 20:42 Blood Pressure Mean 86 05/09/25 20:42 Pulse Oximetry 92 05/09/25 20:42 Oxygen Delivery Method Room Air 05/09/25 20:42 Oxygen Flow Rate 0 05/09/25 20:42 Pain Level 0 05/09/25 20:42 Intake & Output 05/09/25 05/09/25 05/10/25 11:59 23:59 11:59 Intake Total Output Total 800 / 800 Balance -800 / -800 Weight 63.4 kg 60.9 kg Intake: IV Output: Urine 800 / 800 Other: Urine Color Yellow Yellow Urine Appearance Clear Clear Urine Odor Normal Normal Comment pt voided assisted to bedside commode Data Completed and Pending Labs on day of discharge: Labs from last 24 hours 05/10/25 05/09/25 05/09/25 06:12 14:56 14:18 WBC 7.16 RBC 4.67 Hgb 13.8 Hct 42.7 MCV 91 MCH 29.6 MCHC 32.3 RDW 13.2 Plt Count 187 MPV 11.8 H Immature Gran % Neutrophils % Lymphocytes % Monocytes % Eosinophils % Basophils % Nucleated RBC % Absolute Neutrophils Absolute Lymphocytes Absolute Monocytes Absolute Eosinophils Absolute Basophils Sodium 139 Potassium 3.8 Chloride 105 Carbon Dioxide 26.9 Anion Gap 7.1 BUN 6 L Creatinine 0.6 Est GFR (CKD-EPI 2020) 85.75 Glucose 109 H Calcium 9.1 Total Bilirubin AST ALT Alkaline Phosphatase Total Protein Albumin Lipase Urine Color Yellow Urine Clarity Clear Urine pH 5.5 Ur Specific Sharon <= 1.005 Urine Protein Negative Urine Ketones Negative Urine Blood Negative Urine Nitrite Negative Urine Bilirubin Negative Urine Urobilinogen 0.2 Ur Leukocyte Esterase Negative Urine Glucose Negative Stool Campylobacter PCR Stl C.difficile Tox PCR Stool Salmonella PCR Stool Shigella PCR Cryptosporidium/Giardia Pending Shiga Toxin (PCR) 05/09/25 05/09/25 14:15 13:28 WBC 9.19 RBC 4.90 Hgb 14.6 Hct 45.4 MCV 93 MCH 29.8 MCHC 32.2 RDW 13.1 Plt Count 195 MPV 11.2 H Immature Gran % 0.3 Neutrophils % 69.3 Lymphocytes % 22.1 Monocytes % 6.7 Eosinophils % 1.1 Basophils % 0.5 Nucleated RBC % 0.0 Absolute Neutrophils 6.36 Absolute Lymphocytes 2.03 Absolute Monocytes 0.62 Absolute Eosinophils 0.10 Absolute Basophils 0.05 Sodium 140 Potassium 4.3 Chloride 103 Carbon Dioxide 30.7 Anion Gap 6.3 BUN 9 Creatinine 0.7 Est GFR (CKD-EPI 2020) 82.62 Glucose 109 H Calcium 9.4 Total Bilirubin 0.4 AST 16 ALT 22 Alkaline Phosphatase 37 L Total Protein 6.7 Albumin 3.4 Lipase 33 Urine Color Urine Clarity Urine pH Ur Specific Sharon Urine Protein Urine Ketones Urine Blood Urine Nitrite Urine Bilirubin Urine Urobilinogen Ur Leukocyte Esterase Urine Glucose Stool Campylobacter PCR Pending Stl C.difficile Tox PCR POSITIVE A Stool Salmonella PCR Pending Stool Shigella PCR Pending Cryptosporidium/Giardia Cancelled Shiga Toxin (PCR) Pending [facility] All Active Problems (Updated 05/09/25 @ 19:15 by Malini Nguyen APRN) Dementia (Chronic) On deep vein thrombosis (DVT) prophylaxis (Acute) C. difficile colitis (Acute) Enlarged thyroid (Acute) Nausea (Acute) Cough (Acute) Impacted cerumen, bilateral (Acute) Closed fracture of left proximal humerus (Acute 10/09/23) Impacted cerumen, right ear (Acute) Foot pain, bilateral (Acute) Impairment of speech discrimination (Acute) Abdominal pain (Acute) Discharge planning issues (Acute) DVT prophylaxis (Acute) Asthma (Chronic) GERD (gastroesophageal reflux disease) (Chronic) Elevated troponin (Acute) Palpitations (Acute) Sensorineural hearing loss of both ears (Acute) Medical History H/O Radha-Escalera syndrome Bee sting allergy Environmental allergies Osteoporosis Hyperlipidemia Hiatal hernia Surgical History History of repair of hiatal hernia S/P colonoscopy H/O esophagogastroduodenoscopy S/P total abdominal hysterectomy and bilateral salpingo-oophorectomy S/P tonsillectomy and adenoidectomy History of appendectomy Family History Brother Heart disease Diabetes Self No problems noted. Sister Stroke Paternal Aunt No problems noted. Paternal Grandfather Cancer stomach cancer Maternal Grandfather Cancer throat cancer (smoker) Social History Smoking/Tobacco Use Status: Never Smoking risk assessment performed?: Yes Alcohol Intake: never Drug use: Never Substance use type: does not use Housing: assisted living facility Pets and animals: Yes Pets and animals: dog(s) What type of physical activity do you participate in: walking Duration: 45-60 minutes/day Frequency: 5-6 times per week Do you feel safe at home: Yes Do you feel safe in your relationship?: Yes Time Spent with Patient Time Spent with Patient: <45 minutes Time was spent: preparing to see the patient(eg.review tests), obtaining and/or reviewing separately otained hiistory, ordering medications,tests, procedures, indepentently interpreting results and counseling the patient
[2025-05-10 11:24] LABS: Campylobacter PCR Negative (Negative); Shiga Toxin PCR Negative (Negative); Shigella/Enteroinvasive Ecoli Negative (Negative)
--- NOTE | 2025-05-10 13:09 | PDOC.CMPRO ---
Date of service: 05/10/25 Time of Service: 13:09 Care Management Progress Note Progress Note Text Progress Note Text: Caron presented to the ED yesterday afternoon with c/o abdominal pain and multiple episodes of loose stool, and nausea. She was found to have C.diff colitis and was admitted to observation. This morning Caron was feeling much better, and requested to go home Caron was sitting up in bed when CM met with her this morning. She was very pleasant, stated she was feeling much better, and was hoping to go home. Caron lives alone in elderly housing in [place]. Her brother, Dacia, is of great help to her. Caron does not drive, but Dacia gets her to her appointments and takes her shopping. [place] [facility] referral was sent today to help with [facility]. Caron feels she should start to prepare for the future when she may not be able to live alone. She has no children, and her brother is elderly as well. Caron was discharged home today with no home care services. Discharge Potential Discharge Needs: PCP F/U Appt Anticipated Barriers to Discharge: None Identified Patient/Family Education Needs: Review discharge instructions, discuss Ask Me Three Transportation: Private vehicle (with Dacia) Plan: Caron was discharged home earlier today with no home care services. Referral was sent to [facility] as above. Caron will f/u with her PCP and continue per her plan of care. She was transported home by her brother. Social Determinants of Health Screening Social Determinants of health last assessed in clinic: 05/10/25 Will the Patient Participate in the Screening?: Yes Do you worry about having a steady place to live?: yes What is your living situation today?: I have housing today, but am worried about losing it Problems where you live: no known problems In the past 12 months, have you had to go without electric, gas, oil or water in your home?: no 1. Within the past 12 months, we worried whether our food would run out before we got money to buy more.: Never true 2. Within the past 12 months, the food we bought just didn't last and we didn't have money to get more.: Never true Has lack of transportation kept you from medical appointments or from doing things needed for daily living?: no Has anyone in your life made you feel unsafe or unsupported?: no How hard is it for you to pay for the very basics like food, housing, medical care, and heating? Would you say it is:: Somewhat hard Do you want help finding or keeping work or a job?: I do not need or want help If for any reason you need help with day-to-day activities such as bathing, preparing meals, shopping, managing finances, etc., do you get the help you need?: I don?t need any help How often do you feel lonely or isolated from those around you?: Never Do you speak a language other than Pakistani at home?: No Does the patient want assistance with any of the above?: No Comments: pt states her brother and nieces nephews help her. no children of her own Health Related Social Needs Health related social needs: housing instability, housed, with risk of homelessness (Z59.811) and problems related to housing/economic circumstances (Z59.89) Health related social needs details: [facility] just bought my place and they said they will fix it up next year, its okay the way it is now. shower seat might be helpful
== END 2025-05-10 12:16 | disposition home or self-care (01) ==
LOC: ER 16:48 → MS 17:20
PROVIDERS: Admitting Provider Family Medicine; Emergency Provider Student in an Organized Health Care Education/Training Program; PCP Family Medicine; Responsible Provider Nurse Practitioner Acute Care; Visit Provider Family Medicine
DX: A04.72 Enterocolitis due to Clostridium difficile, not specified as recurrent (principal); R11.0 Nausea; R10.9 Unspecified abdominal pain; J45.909 Unspecified asthma, uncomplicated; I47.10 Supraventricular tachycardia, unspecified; F03.90 Unspecified dementia, unspecified severity, without behavioral disturbance, psychotic disturbance, mood disturbance, and anxiety; Z79.899 Other long term (current) drug therapy; K21.9 Gastro-esophageal reflux disease without esophagitis; K44.9 Diaphragmatic hernia without obstruction or gangrene; M81.0 Age-related osteoporosis without current pathological fracture; E78.00 Pure hypercholesterolemia, unspecified; H90.3 Sensorineural hearing loss, bilateral; R05.9 Cough, unspecified; E01.0 Iodine-deficiency related diffuse (endemic) goiter; Z66 Do not resuscitate; M79.89 Other specified soft tissue disorders
CPT/HCPCS: 00123; 36415; 80048; 80053; 83690; 85027; 87015; 87269; 87272; 87505; 94640; 96372; 96374; 96375; 99285; J1650; 74177; 81003; 85025; 94664; 99223; 99238; G0378; J0780; J2405; J3490

== ENCOUNTER 2025-06-06 10:05 | Emergency (ER) | payer MEDICARE, MEDICAID, SELFPAY ==
[2025-06-06] VITALS (46 sets, daily range): BP systolic 87–185; BP diastolic 35–109; PULSE 50–85; RESP 10–20; TEMP 36.7; O2SAT 91–100
--- NOTE | 2025-06-06 10:00 | RT.EKG_ITS ---
APPROVED REPORT Exam: Resting ECG Reason for Exam: abdominal, chest pain Patient Location: E HR:89 bpm ECG Measurements Heart Rate 89 AXIS LA 171 P 54 QRSd 81 QRS 8 QT 363 T 41 QTc 442 Conclusion Sinus rhythm, rate 89 Ventricular trigeminy, unchanged from priors No STEMI No interval abnormalities
--- NOTE | 2025-06-06 10:15 | DI.CT_ITS ---
Exam(s) CT ABDOMEN PELVIS W EXAM: CT ABDOMEN PELVIS W CLINICAL HISTORY: R sided ABD pain. TECHNIQUE: Imaging Protocol: Axial computed tomography images with coronal and sagittal reformatted images were created and reviewed CONTRAST MATERIAL: Intravenous: Omnipaque 350 Contrast volume:75 ml Oral: no COMPARISON: CT CT ABDOMEN PELVIS W from 05/09/2025 FINDINGS: ABDOMEN and PELVIS: Lung Bases: No acute findings. Liver: Normal density. No suspicious mass. Gallbladder and biliary tract: No radiodense calculus. No wall thickening or pericholecystic fluid. No biliary dilation. Pancreas: Normal density. No abnormal calcifications or inflammatory process. No evidence of mass. Spleen: Normal. Kidneys: Normal size, contour and axis. No radiodense stones. No obstructive uropathy. Left renal cyst again noted. No suspicious masses seen. Adrenal glands: No masses seen. Vasculature: Abdominal aorta non-dilated. Soft tissues: Right inguinal hernia again noted containing nonobstructed loop of small bowel similar appearance to prior exam. Small fat containing umbilical hernia. Bladder: No gross wall thickening. No calculi.No focal mass. Bowel: Surgical clips at the fundus of the stomach. No obstruction. No bowel wall thickening. Appendix is not visualized. Diverticulosis of the descending and sigmoid colon. No evidence of diverticulitis. Normal quantity of stool. Peritoneal cavity: No ascites. No focal collection. No mesenteric inflammatory response. No free air. Bones: Unremarkable for age. Reproductive organs: Hysterectomy. Lymph nodes: No pathologically enlarged lymph nodes. IMPRESSION:: No acute abnormality in the abdomen or pelvis. Stable appearance of right inguinal hernia containing nonobstructed loop of small bowel. RADIATION DOSE DELIVERED: 348.22mGy.cm Total DLP DATA REPOSITORY: All CT scans at this facility are submitted to the National Radiology Data Registry (NRDR) Dose Index Registry (DIR) with the [employer] (A[employer]). RADIATION OPTIMIZATION: All CT scans at this facility use at least one of these dose optimization techniques: automated exposure control; mA and/or kV adjustment per patient size (includes targeted exams where dose is matched to clinical indication); or iterative reconstruction.
[2025-06-06] MEDS: Normal Saline 1,000 ML 1000 ML IV (10:35)
[2025-06-06 10:36] LABS: Abs Immature Grans 0.02 10^3/uL (0.0-0.06); HCT 45.3 % (36.0-46.0); HGB 15.0 g/dL (11.2-15.7); Immature Grans % 0.3 %; MCH 30.1 pg (27.0-33.0); MCHC 33.1 % (32.0-36.0); MCV 91 fL (80-95); MPV 11.4 fL (8.0-11.0); Platelet Count 194 10^3/uL (130-400); RBC 4.99 10^6/uL (3.93-5.22); RDW 13.1 % (11.7-14.6); RDW-SD 43.9 fL; WBC 6.52 10^3/uL (4.4-10.8)
[2025-06-06 11:00] LABS: Glucose Negative (Negative)
[2025-06-06 11:00] LABS: ALT 22 U/L (14-59); AST 17 U/L (15-37); Albumin 3.1 g/dL (3.4-5.0); Alkaline Phosphatase 43 U/L (46-116); Anion Gap 8.7 mmol/L (3-11); BUN 11 mg/dL (7-18); Bilirubin, Total 0.4 mg/dL (0.2-1.0); CO2 27.3 mmol/L (21.0-32.0); Calcium 8.9 mg/dL (8.5-10.1); Chloride 105 mmol/L (98-107); Estimated GFR 70.39 (mL/min/1.73m2); Glucose 111 mg/dL (74-106); Lipase 21 U/L (<78); Magnesium 2.2 mg/dL (1.8-2.4); Potassium 4.4 mmol/L (3.5-5.1); Sodium 141 mmol/L (136-145); Total Protein 6.6 g/dL (6.4-8.2); Troponin I 7 ng/L (<or=51)
[2025-06-06] MEDS: Normal Saline - Diluent 50 ML VIAL IJ (11:01)
[2025-06-06] MEDS: Normal Saline Flush 10 ML SYR IVP (11:01)
[2025-06-06] MEDS: Omnipaque 350 MG/ML 500 ML BTL-Imaging package IJ (11:02)
[2025-06-06 11:08] LABS: RBC 0-2 HPF (0-2); WBC 0-2 HPF (0-5)
[2025-06-06 11:09] LABS: C & S Indicated? No
--- NOTE | 2025-06-06 11:38 | W.ED.GENAD ---
Discharge Plan Disposition Patient Disposition: Home Condition: Stable Discharge Details Clinical Impression: Gastroenteritis Primary Care Provider: Urvashi Browne ED Provider: Victoriano Vargas Home Meds and New Rx's Prescriptions: Continued cholecalciferol (vitamin D3) 50 mcg (2,000 unit) tablet 50 mcg PO DAILY Metamucil 3.4 gram/5.4 gram powder 1 tbsp PO DAILY Rx Instructions: mix into at least 8 oz of water or juice before administering docusate sodium [Colace] 100 mg capsule 100 mg PO DAILY fluticasone propion-salmeterol [Wixela Inhub] 100-50 mcg/dose blister with device 1 inh inhalation BID acetaminophen 325 mg capsule 325 mg PO BID PRN carboxymethylcellulose sodium [Refresh Tears] 0.5 % drops 1 drp ophthalmic (eye) BID diltiazem HCl 120 mg capsule,extended release 24 hr 120 mg PO DAILY Qty: 90 3RF albuterol sulfate [ProAir HFA] 8.5 GM HFA aerosol inhaler 2 puff Inhalation PRN PRN ondansetron 4 mg tablet,disintegrating 4 mg PO Q6H PRNQty: 20 0RF pravastatin 40 mg Tablet 40 mg PO QPM Qty: 30 0RF sucralfate 1 gram Tablet 1 g PO AC & HS Qty: 120 0RF aspirin 81 mg Tablet,Delayed Release (Dr/Ec) 81 mg PO DAILY Qty: 0 0RF pantoprazole [Protonix] 20 mg Tablet,Delayed Release (Dr/Ec) 20 mg PO DAILY@0730 Qty: 30 0RF cetirizine [Zyrtec] 10 mg tablet,chewable 5 mg PO DAILY PRN (Reason: allergy symptoms) Qty: 10 0RF donepezil 5 mg tablet 5 mg PO DAILY Patient Comments: TAKE ONE TABLET BY MOUTH EVERY MORNING FOR MEMORY multivitamin [Daily Multivitamin] 1 tab PO DAILY Discharge Instructions Instructions: Viral gastroenteritis in adults Additional Instructions: You were seen in the emergency department for your generalized abdominal pain with nausea and diarrhea, you also received immunization earlier this week you may be experiencing side effects from this and you also may just have a viral stomach bug, you could not produce a stool sample and with your history of C. difficile we did send you home with stool collection kit, please drop this off at the lab, I have directed the lab to also forward a copy of results to your primary care provider. Stay well-hydrated and nourished, return for any severe acute worsening. Referrals: Urvashi Browne [Primary Care Provider, Medicine] Discharge Data Discharge Date/Time-TO BE ENTERED AT DEPARTURE: 06/06/25 15:57 HPI General Date/Time Provider Initiated Documentation: 06/06/25 10:09. HPI Narrative: 89 year-old female presents to ED today by POV/ambulating with a chief complaint of generalized abdominal pain, feels weak/nauseous/dizzy wit diarrhea for 3 days- did receive her flu shot earlier this week. Quality described as generalized weakness, nausea, diarrhea, no radiation to chest pain, syncope, intractable vomiting, fever, shortness of breath, bloody stool, black stools. Severity is described as mild to moderate. Palliating factors include nothing specific attempted. Provoking factors include nothing specific. Patient not anticoagulated. Related Data Home Medications ?Medication ?Instructions ?Recorded ?Confirmed albuterol sulfate 90 mcg/actuation 2 puff inhalation PRN PRN 11/20/14 06/06/25 aerosol inhaler (ProAir HFA) aspirin 81 mg tablet,delayed 81 mg PO DAILY #0 tabs 04/20/20 06/06/25 release pantoprazole 20 mg tablet,delayed 20 mg PO DAILY@0730 #30 tabs 04/20/20 06/06/25 release (Protonix) pravastatin 40 mg tablet 40 mg PO QPM #30 tabs 04/20/20 06/06/25 sucralfate 1 gram tablet 1 g PO AC & HS #120 tabs 04/20/20 06/06/25 cholecalciferol (vitamin D3) 50 50 mcg PO DAILY 06/19/20 06/06/25 mcg (2,000 unit) tablet docusate sodium 100 mg capsule 100 mg PO DAILY 06/19/20 06/06/25 (Colace) psyllium husk 3.4 gram/5.4 gram 1 tbsp PO DAILY 06/19/20 06/06/25 oral powder (Metamucil) fluticasone 100 mcg-salmeterol 50 1 inh inhalation BID 11/03/20 06/06/25 mcg/dose blistr powdr for inhalation (Wixela Inhub) diltiazem HCl 120 mg capsule,24 120 mg PO DAILY #90 caps 05/13/22 06/06/25 hr,extended release acetaminophen 325 mg capsule 325 mg PO BID PRN 11/22/23 06/06/25 carboxymethylcellulose sodium 0.5 1 drp ophthalmic (eye) BID 11/22/23 06/06/25 % eye drops (Refresh Tears) cetirizine 10 mg chewable tablet 5 mg (1/2 x 10 mg) PO DAILY PRN 11/25/24 06/06/25 (Zyrtec) allergy symptoms #10 tabs donepezil 5 mg tablet 5 mg PO DAILY 04/25/25 06/06/25 ondansetron 4 mg disintegrating 4 mg PO Q6H PRN #20 tabs 05/10/25 06/06/25 tablet multivitamin 1 tab PO DAILY 06/06/25 06/06/25 Previous Rx's ?Medication ?Instructions ?Recorded aspirin 81 mg tablet,delayed 81 mg PO DAILY #0 tabs 04/20/20 release pantoprazole 20 mg tablet,delayed 20 mg PO DAILY@0730 #30 tabs 04/20/20 release (Protonix) pravastatin 40 mg tablet 40 mg PO QPM #30 tabs 04/20/20 sucralfate 1 gram tablet 1 g PO AC & HS #120 tabs 04/20/20 diltiazem HCl 120 mg capsule,24 120 mg PO DAILY #90 caps 05/13/22 hr,extended release cetirizine 10 mg chewable tablet 5 mg (1/2 x 10 mg) PO DAILY PRN 11/25/24 (Zyrtec) allergy symptoms #10 tabs ondansetron 4 mg disintegrating 4 mg PO Q6H PRN #20 tabs 05/10/25 tablet Allergies Allergy/AdvReac Type Severity Reaction Status Date / Time hornet venom Allergy Severe Anaphylaxsi Verified 05/09/25 13:01 s Sulfa (Sulfonamide Allergy Severe Swelling/Ed Verified 05/09/25 13:01 Antibiotics) cesia codeine AdvReac Intermediate Nausea Verified 05/09/25 13:01 meperidine HCl (From Demerol) AdvReac Intermediate Nausea Verified 05/09/25 13:01 General Stated Complaint: Abd Prob ROBERTO: 2 Review of Systems All systems reviewed & are unremarkable except as noted in HPI and below Exam Narrative Exam Narrative: GENERAL APPEARANCE: Well-nourished, non-toxic, awake and alert, atraumatic, mild acute distress. SKIN: Warm, pale, dry, intact, without rashes/lesions/ulcerations. HEAD: Normocephalic, atraumatic, normal hair distribution for gender/age. EYES: Normal conjunctiva, no exudates on lids/lashes. ENT: Nares patent, no circumoral cyanosis, no facial swelling NECK: Supple, trachea midline, painless cervical ROM. LUNGS/CHEST: Lungs CTA bilaterally- no rhonchi/rales/wheezes, non-labored respirations, normal A/P diameter, symmetrical expansion, no chest wall deformity HEART (CV/PV): Regular rate and rhythm without murmur, no peripheral edema, no JVD. ABDOMEN: Soft, non-distended, no guarding, hyperactive bowel sounds, R side tenderness without rebound tenderness, no CVA tenderness to percussion bilat. MSK: Normal ROM, no swelling/deformity to bilateral UEs or LEs, moving all extremities without weakness, no cyanosis, spine midline without tenderness, normal curvature. NEURO: Mental Status AAOx4 - alert to person, place, time, events No facial droop, no forehead involvement. Motor: No focal weakness - strength 5/5 in bilateral UEs and LEs, proximal and distal, symmetric. Sensory: sensation intact to light touch globally. Gait NT. PSYCH: euthymic, cooperative, pleasant, appropriate speech Course Vital Signs Vital signs: Vital Signs Temperature 36.7 C 06/06/25 10:05 Pulse 82 06/06/25 10:05 Respiratory Rate 18 06/06/25 10:05 Blood Pressure 87/68 L 06/06/25 10:05 Pulse Oximetry 95 06/06/25 10:05 Temperature 36.7 C 06/06/25 10:34 Temperature Source Temporal Artery Scan 06/06/25 10:34 Pulse 76 06/06/25 11:20 Pulse 79 06/06/25 11:20 Respiratory Rate 12 06/06/25 11:20 Blood Pressure 135/81 06/06/25 11:19 Blood Pressure Mean 96 06/06/25 11:19 Blood Pressure Position Supine 06/06/25 10:34 Pulse Oximetry 99 06/06/25 11:20 Oxygen Delivery Method Room Air 06/06/25 10:34 Oxygen Flow Rate 0 06/06/25 10:34 Pain Level 7 06/06/25 10:34 Lab/Test Results Lab/Test Results: Laboratory Tests Range/Units 06/06/25 06/06/25 10:28 10:54 WBC (4.4-10.8) 10^3/uL 6.52 RBC (3.93-5.22) 10^6/uL 4.99 Hgb (11.2-15.7) g/dL 15.0 Hct (36.0-46.0) % 45.3 MCV (80-95) fL 91 MCH (27.0-33.0) pg 30.1 MCHC (32.0-36.0) % 33.1 RDW (11.7-14.6) % 13.1 Plt Count (130-400) 10^3/uL 194 MPV (8.0-11.0) fL 11.4 H Immature Gran % % 0.3 Neutrophils % % 62.6 Lymphocytes % % 27.9 Monocytes % % 7.1 Eosinophils % % 1.2 Basophils % % 0.9 Nucleated RBC % (0.0-0.3) % 0.0 Absolute Neutrophils (1.2-6.7) 10^3/uL 4.08 Absolute Lymphocytes (1.2-3.4) 10^3/uL 1.82 Absolute Monocytes (0.1-0.8) 10^3/uL 0.46 Absolute Eosinophils (0.0-0.7) 10^3/uL 0.08 Absolute Basophils (0.0-0.2) 10^3/uL 0.06 VBG Lactate (<or=2.0) mmol/L 1.4 Sodium (136-145) mmol/L 141 Potassium (3.5-5.1) mmol/L 4.4 Chloride (98-107) mmol/L 105 Carbon Dioxide (21.0-32.0) mmol/L 27.3 Anion Gap (3-11) mmol/L 8.7 BUN (7-18) mg/dL 11 Creatinine (0.55-1.02) mg/dL 0.8 Est GFR (CKD-EPI 2020) (mL/min/1.73m2) 70.39 Glucose (74-106) mg/dL 111 H Calcium (8.5-10.1) mg/dL 8.9 Magnesium (1.8-2.4) mg/dL 2.2 Total Bilirubin (0.2-1.0) mg/dL 0.4 AST (15-37) U/L 17 ALT (14-59) U/L 22 Alkaline Phosphatase (46-116) U/L 43 L Troponin I (<or=51) ng/L 7 Total Protein (6.4-8.2) g/dL 6.6 Albumin (3.4-5.0) g/dL 3.1 L Lipase (<78) U/L 21 Urine Color (Yellow) Yellow Urine Clarity (Clear) Clear Urine pH (5-8) 7.5 Ur Specific Korbel (1.005-1.025) 1.015 Urine Protein (Neg-Trace) mg/dL Negative Urine Ketones (Negative) mg/dL Negative Urine Blood (Negative) Negative Urine Nitrite (Negative) Negative Urine Bilirubin (Negative) Negative Urine Urobilinogen (Up to 0.2) mg/dL 0.2 Ur Leukocyte Esterase (Negative) Trace H Urine RBC (0-2) HPF 0-2 Urine WBC (0-5) HPF 0-2 Ur Epithelial Cells (Negative) HPF Rare Urine Crystals (Negative) HPF Negative Urine Bacteria (Negative) HPF Rare Urine Casts (Negative) LPF Negative Urine Mucus (Negative) Negative Ur Culture Indicated? No Urine Glucose (Negative) mg/dL Negative Medical Decision Making This dictation utilizes [id number] dictation software and may contain unedited grammatical errors. 89 year-old female presents to ED today by POV/ambulating with a chief complaint of generalized abdominal pain, feels weak/nauseous/dizzy wit diarrhea for 3 days- did receive immunization shot earlier this week. Quality described as generalized weakness, nausea, diarrhea, no radiation to chest pain, syncope, intractable vomiting, fever, shortness of breath, bloody stool, black stools. Severity is described as mild to moderate. Palliating factors include nothing specific attempted. Provoking factors include nothing specific. Patients' medical history: Radha-Escalera tear, CO porosis, hyperlipidemia, hiatal hernia, history of appendectomy, C. difficile. Family and social history: noncontributory- has been eating a normal diet with family since her immunizations earlier this week. Pertinent exam findings / vital signs include generalized abdominal discomfort right greater than left without focal tenderness, benign cardiopulmonary examination- mild soft BP on arrival, quickly improved with IVF, neuro intact, nontoxic and afebrile. Differential / pathologies of concern include gastroenteritis, viral syndrome, SBO, colitis, biliary colic, less likely UTI renal colic, atypical ACS. Diagnostic studies of: - CBC, CMP, lactate, magnesium, serial troponins, lipase, UA, CT ABD/pelvis with contrast, EKG. C. difficile ordered but patient could not provide stool sample - CBC shows no leukocytosis, no left shift, no anemia - Lactate negative at 1.4 - CMP shows no actionable abnormality - Magnesium within normal limits - Serial troponins negative - Lipase negative - UA without UTI - CT of the ABD/pelvis is completely negative within known chronic hernia with no evidence of obstruction - EKG shows sinus rhythm 89 bpm with trigeminy, no STEMI, normal intervals, no ST changes or T wave abnormalities Interventions of: -1 L IVF NS with improvement, patient feels better. ED Course/Assessment/Plan: 89-year-old female presents by EMS for weakness, she received a COVID/flu shot about a week ago, has generalized abdominal pain feeling dizzy and weak with nausea, has history of C. difficile, her laboratory workup is fairly benign with no leukocytosis or left shift, her CMP is unremarkable lactate is negative UA shows no evidence of UTI, troponins negative, lipase normal. Likely viral gastroenteritis versus C. difficile with her history but patient could not produce sample with many attempts here and was discharged home with a stool collection kit to go with a copy also forwarded to her PCP Urvashi Browne on lab order sheet. Findings not consistent with sepsis, atypical ACS, colitis, diverticulitis, SBO, pancreatitis, peritoneal abdomen. Disposition of Gastroenteritis. Patient verbalized understanding of the plan and return to ED criteria and engaged in shared decision making. Medical Records Medical records reviewed: Yes I reviewed the patient's medical records. Imaging Data Radiologic Study: Attestation: I personally reviewed and interpreted this imaging study as follows: Imaging: CT Scan Radiologist's impression: EXAM: CT ABDOMEN PELVIS W CLINICAL HISTORY: R sided ABD pain. TECHNIQUE: Imaging Protocol: Axial computed tomography images with coronal and sagittal reformatted images were created and reviewed CONTRAST MATERIAL: Intravenous: Omnipaque 350 Contrast volume:75 ml Oral: no COMPARISON: CT CT ABDOMEN PELVIS W from 05/09/2025 FINDINGS: ABDOMEN and PELVIS: Lung Bases: No acute findings. Liver: Normal density. No suspicious mass. Gallbladder and biliary tract: No radiodense calculus. No wall thickening or pericholecystic fluid. No biliary dilation. Pancreas: Normal density. No abnormal calcifications or inflammatory process. No evidence of mass. Spleen: Normal. Kidneys: Normal size, contour and axis. No radiodense stones. No obstructive uropathy. Left renal cyst again noted. No suspicious masses seen. Adrenal glands: No masses seen. Vasculature: Abdominal aorta non-dilated. Soft tissues: Right inguinal hernia again noted containing nonobstructed loop of small bowel similar appearance to prior exam. Small fat containing umbilical hernia. Bladder: No gross wall thickening. No calculi.No focal mass. Bowel: Surgical clips at the fundus of the stomach. No obstruction. No bowel wall thickening. Appendix is not visualized. Diverticulosis of the descending and sigmoid colon. No evidence of diverticulitis. Normal quantity of stool. Peritoneal cavity: No ascites. No focal collection. No mesenteric inflammatory response. No free air. Bones: Unremarkable for age. Reproductive organs: Hysterectomy. Lymph nodes: No pathologically enlarged lymph nodes. IMPRESSION:: No acute abnormality in the abdomen or pelvis. Stable appearance of right inguinal hernia containing nonobstructed loop of small bowel. Lab Data Lab results reviewed: Yes I reviewed the patient's lab results. Labs: Laboratory Tests Range/Units 06/06/25 06/06/25 06/06/25 10:28 10:54 11:27 WBC (4.4-10.8) 10^3/uL 6.52 RBC (3.93-5.22) 10^6/uL 4.99 Hgb (11.2-15.7) g/dL 15.0 Hct (36.0-46.0) % 45.3 MCV (80-95) fL 91 MCH (27.0-33.0) pg 30.1 MCHC (32.0-36.0) % 33.1 RDW (11.7-14.6) % 13.1 Plt Count (130-400) 10^3/uL 194 MPV (8.0-11.0) fL 11.4 H Immature Gran % % 0.3 Neutrophils % % 62.6 Lymphocytes % % 27.9 Monocytes % % 7.1 Eosinophils % % 1.2 Basophils % % 0.9 Nucleated RBC % (0.0-0.3) % 0.0 Absolute Neutrophils (1.2-6.7) 10^3/uL 4.08 Absolute Lymphocytes (1.2-3.4) 10^3/uL 1.82 Absolute Monocytes (0.1-0.8) 10^3/uL 0.46 Absolute Eosinophils (0.0-0.7) 10^3/uL 0.08 Absolute Basophils (0.0-0.2) 10^3/uL 0.06 VBG Lactate (<or=2.0) mmol/L 1.4 Sodium (136-145) mmol/L 141 Potassium (3.5-5.1) mmol/L 4.4 Chloride (98-107) mmol/L 105 Carbon Dioxide (21.0-32.0) mmol/L 27.3 Anion Gap (3-11) mmol/L 8.7 BUN (7-18) mg/dL 11 Creatinine (0.55-1.02) mg/dL 0.8 Est GFR (CKD-EPI 2020) (mL/min/1.73m2) 70.39 Glucose (74-106) mg/dL 111 H Calcium (8.5-10.1) mg/dL 8.9 Magnesium (1.8-2.4) mg/dL 2.2 Total Bilirubin (0.2-1.0) mg/dL 0.4 AST (15-37) U/L 17 ALT (14-59) U/L 22 Alkaline Phosphatase (46-116) U/L 43 L Troponin I (<or=51) ng/L 7 8 Total Protein (6.4-8.2) g/dL 6.6 Albumin (3.4-5.0) g/dL 3.1 L Lipase (<78) U/L 21 Urine Color (Yellow) Yellow Urine Clarity (Clear) Clear Urine pH (5-8) 7.5 Ur Specific Korbel (1.005-1.025) 1.015 Urine Protein (Neg-Trace) mg/dL Negative Urine Ketones (Negative) mg/dL Negative Urine Blood (Negative) Negative Urine Nitrite (Negative) Negative Urine Bilirubin (Negative) Negative Urine Urobilinogen (Up to 0.2) mg/dL 0.2 Ur Leukocyte Esterase (Negative) Trace H Urine RBC (0-2) HPF 0-2 Urine WBC (0-5) HPF 0-2 Ur Epithelial Cells (Negative) HPF Rare Urine Crystals (Negative) HPF Negative Urine Bacteria (Negative) HPF Rare Urine Casts (Negative) LPF Negative Urine Mucus (Negative) Negative Ur Culture Indicated? No Urine Glucose (Negative) mg/dL Negative Quality:SDOH Health Related Social Needs: Health related social needs risk of homeless house/econ circumstance Health related social needs details [facility] just bought my place and they said they will fix it up next year, its okay the way it is now. shower seat might be helpful PFSH All Active Problems (Updated 06/06/25 @ 15:16 by REYES Allen) Gastroenteritis (Acute) Dementia (Chronic) On deep vein thrombosis (DVT) prophylaxis (Acute) C. difficile colitis (Acute) Enlarged thyroid (Acute) Nausea (Acute) Cough (Acute) Impacted cerumen, bilateral (Acute) Closed fracture of left proximal humerus (Acute 10/09/23) Impacted cerumen, right ear (Acute) Foot pain, bilateral (Acute) Impairment of speech discrimination (Acute) Abdominal pain (Acute) Discharge planning issues (Acute) DVT prophylaxis (Acute) Asthma (Chronic) GERD (gastroesophageal reflux disease) (Chronic) Elevated troponin (Acute) Palpitations (Acute) Sensorineural hearing loss of both ears (Acute) Medical History H/O Radha-Escalera syndrome Bee sting allergy Environmental allergies Osteoporosis Hyperlipidemia Hiatal hernia Surgical History History of repair of hiatal hernia S/P colonoscopy H/O esophagogastroduodenoscopy S/P total abdominal hysterectomy and bilateral salpingo-oophorectomy S/P tonsillectomy and adenoidectomy History of appendectomy Family History Brother Heart disease Diabetes Self No problems noted. Sister Stroke Paternal Aunt No problems noted. Paternal Grandfather Cancer stomach cancer Maternal Grandfather Cancer throat cancer (smoker) Social History Smoking/Tobacco Use Status: Never Smoking risk assessment performed?: Yes Alcohol Intake: never Drug use: Never Substance use type: does not use Housing: assisted living facility Pets and animals: Yes Pets and animals: dog(s) What type of physical activity do you participate in: walking Duration: 45-60 minutes/day Frequency: 5-6 times per week Do you feel safe at home: Yes Do you feel safe in your relationship?: Yes
[2025-06-06 11:54] LABS: Troponin I 8 ng/L (<or=51)
== END 2025-06-06 15:57 | disposition home or self-care (01) ==
PROVIDERS: Emergency Provider Physician Assistant; PCP Family Medicine
DX: K52.9 Noninfective gastroenteritis and colitis, unspecified (principal); R10.84 Generalized abdominal pain; R11.0 Nausea; R53.1 Weakness; Z59.89 Other problems related to housing and economic circumstances; Z59.811 Housing instability, housed, with risk of homelessness
CPT/HCPCS: 36415; 80053; 83690; 93005; 96360; 96361; 99285; 74177; 81003; 81015; 83605; 83735; 84484; 85025; 93010; 99284

== ENCOUNTER 2025-06-10 19:32 | Outpatient (REF) | payer MEDICARE, MEDICAID, SELFPAY ==
[2025-06-11 20:07] LABS: Campylobacter PCR Negative (Negative); Shiga Toxin PCR Negative (Negative); Shigella/Enteroinvasive Ecoli Negative (Negative)
== END 2025-06-10 19:33 | disposition home or self-care (01) ==
LOC: LBN 19:32
PROVIDERS: PCP Family Medicine; Visit Provider Physician Assistant
DX: K52.9 Noninfective gastroenteritis and colitis, unspecified (principal)
CPT/HCPCS: 87505; 83630